=== PATIENT | female | born 1950 | race Two or more races ===

== ENCOUNTER 2024-12-13 10:22 | Inpatient (IN) | payer MEDICARE, OTHER ==
[~2024-12-13] VITALS: Ht 177.8 cm; Wt 106.1 kg
--- NOTE | 2024-12-13 10:38 | ED.PDOC ---
History of Present Illness HPI Comments This is a 74-year-old female with past medical history of type 2 diabetes mellitus presented to the ED via EMS with a chief complaint of nausea, vomiting and diarrhea for 2 weeks prior to this visit. States that she can not keep anything down the throat, diarrhea 4 to 5 times a day, watery in nature with foul-smelling. She was hospitalized for these symptoms 1 week ago and was diagnosed with norovirus diarrhea and prescribed amoxicillin. But her symptoms did not resolved was prompted this visit. Also mentioned 1 month ago she was diagnosed with bladder infection and prescribed broad-spectrum antibiotic but she did not remember the name. She denies fever, abdominal pain, dysuria, he maturia, positive sick contact or any recent traveling. Time Seen by MD: :25 Allergies: Coded Allergies: NO KNOWN ALLERGIES (Unverified , 12/13/24) Information Source: Patient, Emergency Med Personnel Mode of Arrival: EMS Severity: Moderate Timing: Days Duration: Since onset Prehospital treatment: None Past Medical History PAST MEDICAL HISTORY: DM Surgical History: Hysterectomy Surgical History (Other): Laminectomy [employer] History: Denies all [employer] Hx Family History Family History: Reviewed,noncontributory to illness Social History Smoker: Non-Smoker Alcohol: Denies ETOH Use Drugs: Denies Drug Use Lives In: Home Constitutional: reports: chills, weakness; denies: diaphoresis, fatigue, fever, malaise, sweats, others EENTM: denies: blurred vision, double vision, ear bleeding, ear discharge, ear drainage, ear pain, ear ringing, eye pain, eye redness, hearing loss, mouth pain, mouth swelling, nasal discharge, nose bleeding, nose congestion, nose pain, photophobia, tearing, throat pain, throat swelling, voice changes, others Respiratory: denies: cough, hemoptysis, orthopnea, SOB at rest, shortness of breath, SOB with excertion, stridor, wheezing, others Cardiovascular: denies: chest pain, dizzy spells, diaphoresis, Dyspnea on exertion, edema, irregular heart beat, left arm pain, lightheadedness, palpitations, PND, syncope, others Gastrointestinal: reports: diarrhea, nausea, vomiting; denies: abdomen d istended, abdominal pain, blood streaked bowels, constipated, dysphagia, difficulty swallowing, hematemesis, melena, poor appetite, poor fluid intake, rectal bleeding, rectal pain, others Genitourinary: denies: abnormal vagina bleeding, burning, dyspareunia, dysuria, flank pain, frequency, hematuria, incontinence, pain, , vagina discharge, urgency, others Neurological: denies: dizziness, fainting, headache, left sided numbness, left sided weakness, numbness, paresthesia, pre-existing deficit, right sided numbness, right sided weakness, seizure, speech problems, tingling, tremors, w eakness, others Musculoskeletal: denies: back pain, gout, joint pain, joint swelling, muscle pain, muscle stiffness, neck pain, others Integumetry: denies: bruises, change in color, change in hair/nails, dryness, laceration, lesions, lumps, rash, wounds, others Allergic/Immunocompromised: denies: Difficulty Healing, Frequent Infections, Hives, Itching, others Hematologic/Lymphatic: denies: anemia, blood clots, easy bleeding, easy bruising, swollen glands, others Endocrine: denies: excessive hunger, excessive sweating, excessive thirst, excessive urination, flushing, intolerance to cold, intolerance to heat, unexplained weight gain, unexplained weight loss, others Psychiatric: denies: anxiety, bipolar disorder, depression, hopeless, panic disorder, schizophrenia, sleepless, suicidal, others Physical Exam General Appearance: Mild Distress HEENT: Normal ENT Inspection, Pharynx Normal, TMs Normal, Other (Dry mucous membrane) Neck: Full Range of Motion, Non-Tender, Normal, Normal Inspection Respiratory: Chest Non-Tender, Lungs Clear, No Accessory Muscle Use, No Respiratory Distress, Normal Breath Sounds Cardiovascular: No Edema, No JVD, No Murmur, No Gallop, Normal Peripheral Pulses, Regular Rate/Rhythm Breast Exam: Deferred Gastrointestinal: No Organomegaly, Non Tender, No Pulsatile Mass, Normal Bowel Sounds Genitalia: Deferred Pelvic: Deferred Rectal: Deferred Extremities: No calf tenderness, Normal capillary refill, Normal inspection, No pedal edema Neurologic: NOT DONE Cerebellar Function: NOT DONE Reflexes: NOT DONE Skin: NOT DONE Peripheral Pulses: 2+ carotid (R), 2+ carotid (L), 2+ femoral (R), 2+ femoral (L), 2+ dorsalis pedis (R), 2+ dorsalis pedis (L), 2+ Radial (R), 2+ Radial (L), 2+ Brachial (R), 2+ Brachial (L) Lymphatic: NOT DONE Was a procedure done? Was a procedure done?: No Differential Dx Considerations may include: Gastroenteritis, C diff infection, dehydration, electrolyte imbalance, UTI X-Ray, Labs, Meds, VS Vital Signs Date Time Temp Pulse Resp B/P (MAP) Pulse Ox O2 Delivery O2 Flow Rate FiO2 12/13/24 11:10 84 18 95 Room Air* 0 21 12/13/24 10:36 86 12/13/24 10:34 97.9 84 18 133/82 98 97.9 12/13/24 10:34 97.9 84 18 133/82 (99) 98 97.9 Lab Test 12/13/24 11:19 12/13/24 11:05 Range/Units Urine Color Light-orange Yellow Urine Clarity Ex.turbid Clear Urine pH 6.0 5.0-9.0 Urine Specific [place] 1.014 1.001-1.035 Urine Protein 1+ H Negative Urine Ketones 1+ H Negative Urine Blood 2+ H Negative /uL Urine Nitrite Negative Negative Urine Bilirubin Negative Negative Urine Urobilinogen Normal Negative mg/dL Urine Leukocyte Esterase 3+ Negative /uL Urine RBC 58 0 - 4 /hpf Urine WBC Clumps Present None Seen /hpf Urine Microscopic WBC 1231 H 0-5 /HPF Urine Squamous Epithelial Cells Few <5 /hpf Urine Bacteria None seen None Seen /hpf Urine Mucus Few None Seen Urine Glucose Normal Normal mg/dL White Blood Count 10.1 4.4-10.8 10^3/uL Red Blood Count 4.63 4.0-5.20 10^6/uL Hemoglobin 14.1 12.2-16.2 g/dL Hematocrit 41.1 36.0-46.0 % Mean Corpuscular Volume 88.8 80.0-100.0 fL Mean Corpuscular Hemoglobin 30.6 28.0-32.0 pg Mean Corpuscular Hemoglobin Concent 34.4 32.0-36.0 g/dL Red Cell Distribution Width 14.1 11.8-14.3 % Platelet Count 311 140-450 10^3/uL Mean Platelet Volume 7.8 6.9-10.8 fL Neutrophils (%) (Auto) 65.5 37.0-80.0 % Lymphocytes (%) (Auto) 25.2 10.0-50.0 % Monocytes (%) (Auto) 7.3 0.0-12.0 % Eosinophils (%) (Auto) 0.9 0.0-7.0 % Basophils (%) (Auto) 1.1 0.0-2.0 % Neutrophils # (Auto) 6.6 1.6-8.6 10 ^3/uL Lymphocytes # (Auto) 2.6 0.4-5.4 10 ^3/uL Monocytes # (Auto) 0.7 0-1.3 10 ^3/uL Eosinophils # (Auto) 0.1 0-0.8 10 ^3/uL Basophils # (Auto) 0.1 0-0.2 10 ^3/uL Nucleated Red Blood Cells 0.1 % Sodium Level 140 136-145 mmol/L Potassium Level 2.9 L 3.5-5.1 mmol/L Chloride Level 100 98-107 mmol/L Carbon Dioxide Level 27 20-31 mmol/L Anion Gap 13 5-15 Blood Urea Nitrogen 6 L 9-23 mg/dL Creatinine 0.73 0.550-1.02 mg/dL Glomerular Filtration Rate Calc 86 >90 mL/min BUN/Creatinine Ratio 8.2 L 10.0-20.0 Serum Glucose 143 H 74-106 mg/dL Calcium Level 9.7 8.7-10.4 mg/dL Magnesium Level 1.6 1.6-2.6 mg/dL Current Medications Medications (Trade) Dose Ordered Sig/Jimmy Route Start Time Stop Time Status Last Admin Sodium Chloride 500 ml @ 500 mls/hr Q1H ONCE IV 12/13/24 10:45 12/13/24 12:22 DC 12/13/24 12:48 Ondansetron HCl (Zofran) 4 mg ONCE ONCE IV 12/13/24 10:45 12/13/24 12:22 DC 12/13/24 12:49 Potassium Chloride 100 ml @ 50 mls/hr Q2H IV 12/13/24 11:30 12/13/24 17:29 12/13/24 12:49 X-Ray, Labs, Meds, VS Comment CBC is unremarkable BMP demonstrated severe hypokalemia, elevated blood glucose Time of 1ST Reevaluation: 13:13 Reevaluation 1ST: Improved Patient Education/Counseling: Diagnosis, Treatment Family Education/Counseling: No Family Present Comments This is a 74-year-old female presented to the ED via EMS with a complaint of nausea, vomiting and diarrhea for 2 weeks and not able to keep anything down the throat. CBC was unremarkable and BNP demonstrated severe hypokalemia and elevated blood glucose U/A was consistent with UTI Pending stool bacterial culture, C diff and stool WBC IV normal saline 500 mL bolus, IV ondansetron 4 mg IV once, IV potassium 60 mEq once, IV ceftriaxone 1 g once The patient needs inpatient admission for further evaluation and management. SEPSIS Sepsis Screen Physician Orders Stool Wbc (12/13/24 10:36) Stool Bacterial Culture (12/13/24 10:36) Clostridium Difficile Toxin (12/13/24 10:36) Potassium Chl 20meq/100ml (12/13/24 11:30) Electrocardigram (12/13/24 12:05) Urine Bacterial Culture (12/13/24 13:05) Ceftriaxone 1gm/50ml D5w (Rocephin) (12/13/24 13:15) Vital Signs Date Time Temp Pulse Resp B/P (MAP) Pulse Ox O2 Delivery O2 Flow Rate FiO2 12/13/24 11:10 84 18 95 Room Air* 0 21 12/13/24 10:36 86 12/13/24 10:34 97.9 84 18 133/82 98 97.9 12/13/24 10:34 97.9 84 18 133/82 (99) 98 97.9 Laboratory Tests Test 12/13/24 11:05 White Blood Count 10.1 10^3/uL (4.4-10.8) Medications Medications Dose Ordered Sig/Jimmy Route Start Time Stop Time Status Last Admin Dose Admin Ondansetron HCl 4 mg ONCE ONCE IV 12/13/24 10:45 12/13/24 12:22 DC 12/13/24 12:49 Potassium Chloride 100 ml @ 50 mls/hr Q2H IV 12/13/24 11:30 12/13/24 17:29 12/13/24 12:49 Sodium Chloride 500 ml @ 500 mls/hr Q1H ONCE IV 12/13/24 10:45 12/13/24 12:22 DC 12/13/24 12:48 Departure 1 Departure Time of Disposition: :15 Impression: Primary Impression: Hypokalemia Additional Impression: UTI (urinary tract infection) Disposition: 09 ADMITTED INPATIENT Admit to: Tele Condition: Guarded Critical Care Note Critical Care Time?: No Stability Stability form required: OLY Antonio RESIDENT Dec 13, 2024 10:38
[2024-12-13 11:10] VITALS: PULSE 84; RESP 18; O2SAT 95
[2024-12-13 11:15] LABS: Hematocrit 41.1 % (36.0-46.0); Hemoglobin 14.1 g/dL (12.2-16.2); Mean Corpuscular Hemoglobin 30.6 pg (28.0-32.0); Mean Corpuscular Volume 88.8 fL (80.0-100.0); Nucleated Red Blood Cells % 0.1 %
[2024-12-13 11:23] LABS: Chloride 100 mmol/L (98-107); Sodium 140 mmol/L (136-145)
[2024-12-13 11:24] LABS: Anion Gap 13 (5-15); Calcium 9.7 mg/dL (8.7-10.4); Carbon Dioxide 27 mmol/L (20-31); Potassium 2.9 mmol/L (3.5-5.1)
[2024-12-13 11:29] LABS: BUN/Creatinine Ratio 8.2 (10.0-20.0); Blood Urea Nitrogen 6 mg/dL (9-23); Glucose 143 mg/dL (74-106)
[2024-12-13 12:16] LABS: Urine Protein, UAD 1+ (Negative); Urine WBC Clumps PRESENT /hpf (None Seen)
[2024-12-13] MEDS: SODIUM CHLORIDE 0.9% 500 ML IV ONE (12:48)
[2024-12-13] MEDS: ONDANSETRON HCL 4 MG/2 ML VIAL IV ONE (12:49)
[2024-12-13] MEDS: POTASSIUM CHL 20MEQ/100ML 100 ML IV SCH (12:49)
[2024-12-13] MEDS ORDERED: DOCUSATE SOD 100 MG CAP PO PRN (15:45)
[2024-12-13] MEDS ORDERED: DEXTROSE (50%) 50ML SYRG IV PRN (15:45)
[2024-12-13] MEDS ORDERED: NITROGLYCERIN 0.4 MG SL TAB SL PRN (15:45)
[2024-12-13] MEDS: IOHEXOL 300 MG/ML 100ML BOTTLE IJ ONE (15:47)
--- NOTE | 2024-12-13 16:04 | DVHHP2 ---
History of Present Illness Reason for Visit: nvd History of Present Illness 74-year-old female with a past medical history of type 2 diabetes mellitus, hysterectomy, and lumbar laminectomy presents with persistent nausea, vomiting, and diarrhea for more than two weeks. She was recently admitted to a hospital in [place] about one week ago, where stool studies reportedly showed norovirus. She was discharged on amoxicillin and completed four days of t reatment but continues to have diarrhea with foul odor, no blood, and no abdominal pain. She reports decreased appetite and describes that whenever she tries to eat, she experiences immediate diarrhea, a sensation of something stuck in her throat, and vomiting. She denies chest pain or shortness of breath. In the ED, she was hemodynamically stable. CBC was unremarkable, BMP notable for potassium 2.9 and glucose 143. UA showed presence of bacteria. Given ongoing symptoms, hypokalemia, and poor oral intake, she will be admitted for dehydration management, intractable nausea/vomiting/diarrhea, and further evaluation. Past Medical History See HPI above Past Surgical History See HPI above Family History Reviewed, non-contributory to the management of this case. Past Social History The patient lives at home, denies smoking, alcohol or illicit drugs abuse. Review of Systems Constitutional: No: Fever, Chills, Sweats, Weakness, Malaise, Other Eyes: No: Pain, Vision change, Conjunctivae inflammation, Eyelid inflammation, Other, Redness ENT: No: Ear pain, Ear discharge, Nose pain, Nose discharge, Nose congestion, Mouth pain, Mouth swelling, Throat pain, Throat swelling, Other Respiratory: No: Cough, Dry, Shortness of breath, SOB with excertion, Wheezing, Hemoptysis, Pleuritic Pain, Sputum, Wheezing, Other Cardiovascular: No: Chest Pain, Palpitations, Orthopnea, Paroxysmal Noc. Dyspnea, Edema, Lt Headedness, Other Gastrointestinal: Nausea, Vomiting, Abdominal Pain, Diarrhea; No: Constipation, Melena, Hematochezia, Other Genitourinary: No Dysuria, No Frequency, No Incontinence, No Hematuria, No Retention, No Other Musculoskeletal: No: other, neck pain, shoulder pain, arm pain, back pain, hand pain, leg pain, foot pain Skin: No: Rash, Lesions, Jaundice, Bruising, Other Neurological: No: Weakness, Numbness, Incoordination, Change in speech, Confusion, Seizures, Other Allergies: Coded Allergies: NO KNOWN ALLERGIES (Unverified , 12/13/24) Medications Current Medications Medications Dose Ordered Sig/Jimmy Route Start Time Stop Time Status Last Admin Dose Admin Potassium Chloride 100 ml @ 50 mls/hr Q2H IV 12/13/24 11:30 12/13/24 17:29 12/13/24 12:49 50 MLS/HR Exam Vital Signs Vital Signs Date Time Temp Pulse Resp B/P (MAP) Pulse Ox O2 Delivery O2 Flow Rate FiO2 12/13/24 15:00 77 18 131/66 (87) 95 12/13/24 11:10 Room Air* 0 21 12/13/24 10:34 97.9 97.9 General Appearance: Alert, Oriented X3, Cooperative, No acute distress HEENT: Atraumatic, PERRLA, EOMI, Mucous membr. moist/pink Respiratory: Clear to auscultation, Normal air movement Cardiovascular: Regular rate, Normal S1, Normal S2, No murmurs Abdominal: Normal bowel sounds, Soft, No tenderness, No hepatospenomegaly, No masses Extremities: No clubbing, No cyanosis, No edema, Normal pulses, No tenderness/swelling Skin: No rashes, No breakdown, No significant lesion Neuro: Normal gait, Normal speech, Strength at 5/5 X4 ext, Normal tone, Sensation intact, Cranial nerves 3-12 NL Psych/Mental Status: Mental status NL, Mood NL Labs/Xrays I reviewed labs, imaging CT scan abdomen pelvis, EKG and all diagnostic studies on this patient from ED records and the medical chart Labs Test 12/13/24 11:19 12/13/24 11:05 Range/Units Urine Color Light-orange Yellow Urine Clarity Ex.turbid Clear Urine pH 6.0 5.0-9.0 Urine Specific [place] 1.014 1.001-1.035 Urine Protein 1+ H Negative Urine Ketones 1+ H Negative Urine Blood 2+ H Negative /uL Urine Nitrite Negative Negative Urine Bilirubin Negative Negative Urine Urobilinogen Normal Negative mg/dL Urine Leukocyte Esterase 3+ Negative /uL Urine RBC 58 0 - 4 /hpf Urine WBC Clumps Present None Seen /hpf Urine Microscopic WBC 1231 H 0-5 /HPF Urine Squamous Epithelial Cells Few <5 /hpf Urine Bacteria None seen None Seen /hpf Urine Mucus Few None Seen Urine Glucose Normal Normal mg/dL White Blood Count 10.1 4.4-10.8 10^3/uL Red Blood Count 4.63 4.0-5.20 10^6/uL Hemoglobin 14.1 12.2-16.2 g/dL Hematocrit 41.1 36.0-46.0 % Mean Corpuscular Volume 88.8 80.0-100.0 fL Mean Corpuscular Hemoglobin 30.6 28.0-32.0 pg Mean Corpuscular Hemoglobin Concent 34.4 32.0-36.0 g/dL Red Cell Distribution Width 14.1 11.8-14.3 % Platelet Count 311 140-450 10^3/uL Mean Platelet Volume 7.8 6.9-10.8 fL Neutrophils (%) (Auto) 65.5 37.0-80.0 % Lymphocytes (%) (Auto) 25.2 10.0-50.0 % Monocytes (%) (Auto) 7.3 0.0-12.0 % Eosinophils (%) (Auto) 0.9 0.0-7.0 % Basophils (%) (Auto) 1.1 0.0-2.0 % Neutrophils # (Auto) 6.6 1.6-8.6 10 ^3/uL Lymphocytes # (Auto) 2.6 0.4-5.4 10 ^3/uL Monocytes # (Auto) 0.7 0-1.3 10 ^3/uL Eosinophils # (Auto) 0.1 0-0.8 10 ^3/uL Basophils # (Auto) 0.1 0-0.2 10 ^3/uL Nucleated Red Blood Cells 0.1 % Sodium Level 140 136-145 mmol/L Potassium Level 2.9 L 3.5-5.1 mmol/L Chloride Level 100 98-107 mmol/L Carbon Dioxide Level 27 20-31 mmol/L Anion Gap 13 5-15 Blood Urea Nitrogen 6 L 9-23 mg/dL Creatinine 0.73 0.550-1.02 mg/dL Glomerular Filtration Rate Calc 86 >90 mL/min BUN/Creatinine Ratio 8.2 L 10.0-20.0 Serum Glucose 143 H 74-106 mg/dL Calcium Level 9.7 8.7-10.4 mg/dL Magnesium Level 1.6 1.6-2.6 mg/dL SEPSIS Sepsis Screen Date sepsis recognized/suspect: Dec 13, 2024 Time Sepsis recognized/suspect: 1000 Recent Procedure: No On Antibiotic Therapy: No Respiratory Rate >20: No Heart Rate >90: No Temp<36 C (96.8 F) or >38.3 C: No SBP <90 or MAP <65 mmHG: No New Acute Mental Status Change: No Is the patient on CPAP, BIPAP,: No Physician Orders Stool Wbc (12/13/24 10:36) Stool Bacterial Culture (12/13/24 10:36) Clostridium Difficile Toxin (12/13/24 10:36) Potassium Chl 20meq/100ml (12/13/24 11:30) Electrocardigram (12/13/24 12:05) Urine Bacterial Culture (12/13/24 13:05) Admit (12/13/24:) Allergies (12/13/24:) Code Status (12/13/24:) 0.9% Ns 1000 Ml (12/13/24 15:45) Ondansetron Hcl (Zofran) (12/13/24 15:45) Docusate Sodium Capsule (Colace Capsule) (12/13/24 15:45) Fall Risk Precautions In Place QSHIFT (12/13/24:32) Complete Blood Count (12/14/24 04:00) Comprehensive Metabolic Panel (12/14/24 04:00) Condition: Stable (12/13/24:32) Clear Liq Diet (12/13/24 Dinner) BRP (12/13/24:32) Morphine Sulfate Injection (12/13/24 15:45) Sequential Compression Device (12/13/24 ) Lovenox 40mg (12/13/24 15:45) Glucose Blood (Accu-Chek Comfort Curve T (12/13/24 17:00) Bedtime Insulin Scale (12/13/24 22:00) Moderate Insulin Ss (12/13/24 17:00) Dextrose 50% Syringe (12/13/24 15:45) Nitroglycerin Sublingual (Ntrostat Subli (12/13/24 15:45) Stat Ekg For Chest Pain (12/13/24 15:32) Notify Md Of Changes From Base (12/13/24 15:32) Coiled Tubing Operator For 24 Hours (12/13/24 15:32) Emergency Dysrhythmia Protocol (12/13/24 15:32) Rhythm Strips Once Every Shift (12/13/24 15:32) Oxygen By Nasal Cannula (12/13/24 15:32) Magnesium (12/13/24 15:32) Phosphorus (12/13/24 15:32) Ct Ab Pel With Iv Con Only (12/13/24 15:32) Vital Signs Date Time Temp Pulse Resp B/P (MAP) Pulse Ox O2 Delivery O2 Flow Rate FiO2 12/13/24 15:00 77 18 131/66 (87) 95 12/13/24 14:01 77 14 126/63 (84) 95 12/13/24 12:28 80 15 133/70 (91) 96 12/13/24 11:10 84 18 95 Room Air* 0 21 12/13/24 10:36 86 12/13/24 10:34 97.9 84 18 133/82 98 97.9 12/13/24 10:34 97.9 84 18 133/82 (99) 98 97.9 Laboratory Tests Test 12/13/24 11:05 White Blood Count 10.1 10^3/uL (4.4-10.8) Medications Medications Dose Ordered Sig/Jimmy Route Start Time Stop Time Status Last Admin Dose Admin Ceftriaxone Sodium 50 ml @ 100 mls/hr ONCE ONCE IV 12/13/24 13:15 12/13/24 13:44 DC 12/13/24 13:36 100 MLS/HR Ondansetron HCl 4 mg ONCE ONCE IV 12/13/24 10:45 12/13/24 12:22 DC 12/13/24 12:49 4 MG Potassium Chloride 100 ml @ 50 mls/hr Q2H IV 12/13/24 11:30 12/13/24 17:29 12/13/24 12:49 50 MLS/HR Sodium Chloride 500 ml @ 500 mls/hr Q1H ONCE IV 12/13/24 10:45 12/13/24 12:22 DC 12/13/24 12:48 500 MLS/HR Assessment/Plan Assessment/Plan 74-year-old female with Dehydration and intractable nausea, vomiting, and diarrhea with hypokalemia, in the setting of recent norovirus infection. acute Intractable Nausea and Vomiting IV antiemetics (ondansetron PRN). clear liquid diet, advance as tolerated. acute Diarrhea presumed post-viral ct scan abd pelvis ordered fu results Repeat stool studies including C. difficile PCR, GI pathogen panel. Maintain hydration and monitor stool output. Contact precautions until infectious causes ruled out. acute Dehydration IV isotonic fluids, reassess volume status daily. Strict intake/output monitoring. Daily weight. acute Hypokalemia IV repletion to maintain K >4.0 Monitor BMP Type 2 Diabetes Mellitus Monitor blood glucose with ACHS checks. Use sliding scale insulin while inpatient acute Urinary Tract Infection UA with bacteria; send urine culture. Hold antibiotics until culture results unless patient develops urinary symptoms or sepsis. CHRONIC PROBLEM LIST Type 2 Diabetes Mellitus History of Hysterectomy History of Lumbar Laminectomy FEN / PPx ivf scd lovenox protonix clr lquid advance as tolerated Disposition: Admit to medical floor for IV hydration, electrolyte repletion, infectious stool workup, and nutritional support. Discharge once tolerating oral intake, diarrhea improved, electrolytes stable, and safe outpatient follow-up arranged. Plan discussed with: Patient My Orders Orders - AZEB SIDDIQI DNP Procedure Category Date Status Time Admit ADMIT 12/13/24 Verified 15:32 Allergies VIK 12/13/24 Verified 15:32 Code Status CODE 12/13/24 Verified 15:32 0.9% Ns 1000 Ml PHA 12/13/24 Verified 15:45 Ondansetron Hcl PHA 12/13/24 Verified (Zofran) 15:45 Docusate Sodium PHA 12/13/24 Verified Capsule (Colace 15:45 Fall Risk Precautions VIK 12/13/[address] 15:32 Complete Blood Count LAB 12/14/24 Verified 04:00 Comprehensive LAB 12/14/24 Verified Metabolic Panel 04:00 Condition: Stable VIK 12/13/24 Verified 15:32 Clear Liq Diet DIET 12/13/24 Verified Dinner BRP VIK 12/13/24 Verified 15:32 Morphine Sulfate PHA 12/13/24 Verified Injection 15:45 Sequential VIK 12/13/24 Verified Compression Device Lovenox 40mg PHA 12/13/24 Verified 15:45 Glucose Blood PHA 12/13/24 Verified (Accu-Chek Comfort 17:00 Bedtime Insulin Scale PHA 12/13/24 Verified 22:00 Moderate Insulin Ss PHA 12/13/24 Verified 17:00 Dextrose 50% Syringe PHA 12/13/24 Verified 15:45 Nitroglycerin PHA 12/13/24 Verified Sublingual (Ntrostat 15:45 Stat Ekg For Chest [facility] 12/13/24 Verified Pain 15:32 Notify Md Of Changes [facility] 12/13/24 Verified From Base 15:32 Coiled Tubing Operator For [facility] 12/13/24 Verified 24 Hours 15:32 Emergency Dysrhythmia [facility] 12/13/24 Verified Protocol 15:32 Rhythm Strips Once [facility] 12/13/24 Verified Every Shift 15:32 Oxygen By Nasal RT 12/13/24 Verified Cannula 15:32 Magnesium LAB 12/13/24 Verified 15:32 Phosphorus LAB 12/13/24 Verified 15:32 Ct Ab Pel With Iv Con CT 12/13/24 Verified Only 15:32 Date of Service: Dec 13, 2024 Billing Provider: AZEB SIDDIQI DNP Common Visit Codes: [id number] INP/OBS CARE (HIGH) AZEB SIDDIQI DNP Dec 13, 2024 16:04
[2024-12-13] MEDS: ENOXAPARIN SOD 40 MG/0.4 ML SYRINGE SC SCH (16:05)
[2024-12-13] MEDS: SODIUM CHLORIDE 0.9% 1,000 ML IV SCH (16:07)
--- NOTE | 2024-12-13 16:49 | DVH ---
EXAM: CT CT AB PEL WITH IV CON ONLY HISTORY: eval for acute diarrhea and vomiting COMPARISON: None TECHNIQUE: Helical CT images of the abdomen and pelvis were performed with 85 mL Omnipaque 300 IV con trast. Sagittal and coronal reformatted images were obtained. This CT exam was performed using 1 or m ore of the following dose reduction techniques: Automated exposure control, adjustment of the mA and/ or kv according to patient size, or the use of iterative reconstruction techniques. Radiation Dose Information: CT Dose: CTDI volume is 26.98 mGy. Dose-length product is 1529.55 mGy*cm FINDINGS: CT abdomen: There is a left chest loop recorder. The lung bases are clear. The heart is mildly enlarg ed. The liver is diffusely fatty density The spleen, gallbladder, pancreas, kidneys, and adrenal glan ds are unremarkable. No abdominal aortic aneurysm or dissection. CT pelvis: No abnormal bowel dilatation, free air, or free fluid. There are a few sigmoid colon diver ticula without evidence of acute diverticulitis. The appendix is not definitely visualized, and there is no specific evidence of acute appendicitis. The uterus is surgically absent. The urinary bladde r is unremarkable. There is moderate lumbar degenerative disc disease and facet arthropathy. IMPRESSION: 1. Cardiomegaly and left chest loop recorder. 2. Hepatic steatosis. 3. Postoperative changes of hysterectomy and possibly also appendectomy. 4. Few sigmoid colon diverticula without evidence of acute diverticulitis. 5. No evidence of bowel obstruction or other acute process in the abdomen or pelvis.
[2024-12-13] MEDS: InsuLIN REG 1unit/0.01ml Soln (100units/ml) SC SCH ×2 (17:00→22:00)
[2024-12-13 17:08] LABS: Magnesium 1.6 mg/dL (1.6-2.6)
[2024-12-13] MEDS: ACCU-CHEK COMFORT CURVE STRIP VI SCH (17:18)
[2024-12-13 17:35] VITALS: PULSE 80; RESP 18; O2SAT 0
[2024-12-13 17:55] VITALS: BP 129/64; PULSE 80; RESP 17; TEMP 98.1; O2SAT 97
[2024-12-13] MEDS: ONDANSETRON HCL 4 MG/2 ML VIAL IV PRN (18:09)
[2024-12-13 18:26] VITALS: BP 130/66; PULSE 80; RESP 18; TEMP 98; O2SAT 95
[2024-12-13] MEDS ORDERED: BENA10TA90 PO (20:29)
[2024-12-13] MEDS ORDERED: SERT-206 PO (20:29)
[2024-12-13] MEDS ORDERED: AUG875T PO (20:29)
[2024-12-13] MEDS ORDERED: ZOFR4T PO (20:29)
[2024-12-13] MEDS ORDERED: ROSU10TA16 PO (20:29)
[2024-12-13] MEDS ORDERED: ESTR1TAB6 PO (20:29)
[2024-12-13] MEDS ORDERED: AML5T PO (20:29)
[2024-12-13] MEDS ORDERED: METF-1145 PO (20:29)
[2024-12-13 20:58] VITALS: BP_SYST 131; BP_SYST 95; BP_DIAS 62; BP_DIAS 66; PULSE 77; RESP 18; TEMP 98.4; O2SAT 96
[2024-12-14] VITALS (8 sets, daily range): BP systolic 105–141; BP diastolic 50–78; PULSE 71–77; RESP 16–18; TEMP 97.7–99.8; O2SAT 93–98
[2024-12-14] MEDS: POTASSIUM CHL 20MEQ/100ML 100 ML IV ONE (00:05)
[2024-12-14] MEDS: MORPHINE SULFATE INJ 2 MG/ml SYRG IV PRN (00:11)
[2024-12-14 06:39] LABS: Hematocrit 40.9 % (36.0-46.0); Hemoglobin 13.7 g/dL (12.2-16.2); Mean Corpuscular Hemoglobin 29.9 pg (28.0-32.0); Mean Corpuscular Volume 89.4 fL (80.0-100.0); Nucleated Red Blood Cells % 0.0 %
[2024-12-14 06:58] LABS: Alanine Aminotransferase 23 U/L (7-40); Albumin 3.5 g/dL (3.2-4.8); Alkaline Phosphatase 65 U/L (46-116); Anion Gap 13 (5-15); Calcium 9.1 mg/dL (8.7-10.4); Carbon Dioxide 22 mmol/L (20-31); Glucose 104 mg/dL (74-106); Sodium 143 mmol/L (136-145)
[2024-12-14 06:59] LABS: Bilirubin, Total 0.5 mg/dL (0.2-1.0)
[2024-12-14 07:05] LABS: BUN/Creatinine Ratio 6.8 (10.0-20.0); Blood Urea Nitrogen < 5 mg/dL (9-23); Chloride 108 mmol/L (98-107); Potassium 3.2 mmol/L (3.5-5.1); Total Protein 5.4 g/dL (5.7-8.2)
--- NOTE | 2024-12-14 10:06 | DVHPN2 ---
Changes from previous H/P or p: No Changes Eyes: No Pain, No Vision change, No Conjunctivae inflammation, No Eyelid inflammation, No Other, No Redness ENT: No Ear pain, No Ear discharge, No Nose pain, No Nose discharge, No Nose congestion, No Mouth pain, No Mouth swelling, No Throat pain, No Throat swelling, No Other Cardiovascular: No Chest Pain, No Palpitations, No Orthopnea, No Paroxysmal Noc. Dyspnea, No Edema, No Lt Headedness, No Other Respiratory: No Cough, No Dry, No Shortness of breath, No SOB with excertion, No Wheezing, No Hemoptysis, No Pleuritic Pain, No Sputum, No Other Gastrointestinal: Nausea, Vomiting, Abdominal Pain, Diarrhea; No Constipation, No Melena, No Hematochezia, No Other Genitourinary: No Dysuria, No Frequency, No Incontinence, No Hematuria, No Retention, No Other Musculoskeletal: No other, No neck pain, No shoulder pain, No arm pain, No back pain, No hand pain, No leg pain, No foot pain Skin: No Rash, No Lesions, No Jaundice, No Bruising, No Other Objective Vitals Vital Signs Date Time Temp Pulse Resp B/P (MAP) Pulse Ox O2 Delivery O2 Flow Rate FiO2 12/14/24 09:13 98.6 77 18 105/50 (68) 96 98.6 12/14/24 07:30 Room Air* 0 21 Intake/Output Intake and Output 12/14/24 07:00 Intake Total 1375 ml Balance 1375 ml Intake Oral 600 ml IV Total 775 ml Medications Current Medications Medications Dose Ordered Sig/Jimmy Route Start Time Stop Time Status Last Admin Dose Admin Sodium Chloride 1,000 ml @ 100 mls/hr Q10H IV 12/13/24 15:45 12/14/24 00:50 100 MLS/HR Ondansetron HCl 4 mg Q4HP PRN IV 12/13/24 15:45 12/14/24 09:04 4 MG Docusate Sodium 100 mg BIDPRN PRN PO 12/13/24 15:45 Morphine Sulfate 2 mg Q4HPRN PRN IV 12/13/24 15:45 12/14/24 00:11 2 MG Enoxaparin Sodium 40 mg DAILY SC 12/13/24 15:45 12/13/24 16:05 40 MG Diagnostic Test (Pha) 1 strip ACHS 12/13/24 17:00 12/14/24 06:52 1 STRIP Insulin Human Regular HS SC 12/13/24 22:00 Insulin Human Regular AC SC 12/13/24 17:00 Dextrose 50 ml UD PRN IV 12/13/24 15:45 Nitroglycerin 0.4 mg Q5MINP PRN SL 12/13/24 15:45 Ceftriaxone Sodium 50 ml @ 100 mls/hr DAILY@09 IV 12/15/24 09:00 UNV Metronidazole 100 ml @ 100 mls/hr Q8HR IV 12/14/24 14:00 UNV Laboratory Results Laboratory Tests 12/14/24 05:39 Chemistry Test 12/13/24 11:05 12/13/24 16:30 12/14/24 05:39 Calcium Level 9.7 mg/dL (8.7-10.4) 9.1 mg/dL (8.7-10.4) Magnesium Level 1.6 mg/dL (1.6-2.6) 1.6 mg/dL (1.6-2.6) Phosphorus Level 3.6 mg/dL (2.4-5.1) Albumin 3.5 g/dL (3.2-4.8) Total Protein 5.4 g/dL (5.7-8.2) L LFT Test 12/14/24 05:39 Alanine Aminotransferase (ALT) 23 U/L (7-40) Alkaline Phosphatase 65 U/L (46-116) Aspartate Amino Transferase (AST) 34 U/L (13-40) Total Bilirubin 0.5 mg/dL (0.2-1.0) Urinalysis Test 12/13/24 11:19 Urine Color Light-orange (Yellow) Urine Clarity Ex.turbid (Clear) Urine pH 6.0 (5.0-9.0) Urine Specific [place] 1.014 (1.001-1.035) Urine Protein 1+ (Negative) H Urine Ketones 1+ (Negative) H Urine Blood 2+ /uL (Negative) H Urine Nitrite Negative (Negative) Urine Bilirubin Negative (Negative) Urine Urobilinogen Normal mg/dL (Negative) Urine Leukocyte Esterase 3+ /uL (Negative) Urine RBC 58 /hpf (0 - 4) Urine WBC Clumps Present /hpf (None Seen) Urine Microscopic WBC 1231 /HPF (0-5) H Urine Squamous Epithelial Cells Few /hpf (<5) Urine Bacteria None seen /hpf (None Seen) Urine Mucus Few (None Seen) Urine Glucose Normal mg/dL (Normal) Labs and/or images reviewed: Labs reviewed by me, Image(s) reviewed by me Assessment/Plan Assessment/Plan Sepsis secondary to urinary tract infection: Blood cultures urine cultures Rocephin Acute abdominal pain with the nausea vomiting and diarrhea, Rocephin and Flagyl IV CT abdomen pelvis without contrast negative, GI consult by Dr. Izaiah Magana Recent history of norovirus infection treated with amoxicillin at [facility] Diverticulosis without diverticulitis Diabetes type 2 Acute dehydration: IV fluids History of lumbar spine surgery Time spent 70 minutes Advanced care planning time 20 minutes Patient is full code Patient Lives in [place] and visiting her daughter here . Plan discussed with: Patient My Orders Orders - BETO CRISTOBAL MD Procedure Category Date Status Time Ceftriaxone 1gm/50ml PHA 12/15/24 Logged D5w (Rocephin) 09:00 Ceftriaxone 1gm/50ml PHA 12/14/24 Logged D5w (Rocephin) 10:15 Metronidazole PHA 12/14/24 Logged 500mg/100ml (Flagyl 14:00 Date of Service: Dec 14, 2024 Billing Provider: BETO CRISTOBAL MD Common Visit Codes: [id number] CARE 30-74 MIN BETO CRISTOBAL MD Dec 14, 2024 10:06
[2024-12-14] MEDS: diphenhdrAMINE HCL 50 MG/1 ML VL IV PRN (12:02)
[2024-12-15] VITALS (8 sets, daily range): BP systolic 137–153; BP diastolic 67–75; PULSE 66–72; RESP 17–20; TEMP 97.5–99.3; O2SAT 93–97
[2024-12-15 07:22] LABS: Hematocrit 34.7 % (36.0-46.0); Hemoglobin 11.8 g/dL (12.2-16.2); Mean Corpuscular Hemoglobin 30.3 pg (28.0-32.0); Mean Corpuscular Volume 89.0 fL (80.0-100.0); Nucleated Red Blood Cells % 0.1 %
[2024-12-15 07:38] LABS: Alanine Aminotransferase 17 U/L (7-40); Alkaline Phosphatase 57 U/L (46-116); Anion Gap 13 (5-15); Calcium 8.8 mg/dL (8.7-10.4); Carbon Dioxide 21 mmol/L (20-31); Glucose 101 mg/dL (74-106)
[2024-12-15 07:39] LABS: Bilirubin, Total 0.4 mg/dL (0.2-1.0)
[2024-12-15 07:47] LABS: Albumin 3.1 g/dL (3.2-4.8); BUN/Creatinine Ratio 8.2 (10.0-20.0); Blood Urea Nitrogen < 5 mg/dL (9-23); Chloride 112 mmol/L (98-107); Potassium 2.8 mmol/L (3.5-5.1); Sodium 146 mmol/L (136-145); Total Protein 4.7 g/dL (5.7-8.2)
--- NOTE | 2024-12-15 09:52 | DVHPN2 ---
Reviewed: Care Plan, H&P, Labs, Medications, Previous Orders, Radiology Changes from previous H/P or p: No Changes Eyes: No Pain, No Vision change, No Conjunctivae inflammation, No Eyelid inflammation, No Other, No Redness ENT: No Ear pain, No Ear discharge, No Nose pain, No Nose discharge, No Nose congestion, No Mouth pain, No Mouth swelling, No Throat pain, No Throat swelling, No Other Cardiovascular: No Chest Pain, No Palpitations, No Orthopnea, No Paroxysmal Noc. Dyspnea, No Edema, No Lt Headedness, No Other Respiratory: No Cough, No Dry, No Shortness of breath, No SOB with excertion, No Wheezing, No Hemoptysis, No Pleuritic Pain, No Sputum, No Other Gastrointestinal: Nausea, Vomiting, Abdominal Pain, Diarrhea; No Constipation, No Melena, No Hematochezia, No Other Genitourinary: No Dysuria, No Frequency, No Incontinence, No Hematuria, No Retention, No Other Musculoskeletal: No other, No neck pain, No shoulder pain, No arm pain, No back pain, No hand pain, No leg pain, No foot pain Skin: No Rash, No Lesions, No Jaundice, No Bruising, No Other Objective Vitals Vital Signs Date Time Temp Pulse Resp B/P (MAP) Pulse Ox O2 Delivery O2 Flow Rate FiO2 12/15/24 07:30 72 18 94 Room Air* 0 21 12/15/24 05:15 97.8 138/72 (94) 97.8 Intake/Output Intake and Output 12/15/24 07:00 Intake Total 2250 ml Output Total 3 ml Balance 2247 ml Intake Oral 1200 ml IV Total 1050 ml Output Urine Total 3 ml # Voids 2 # Bowel Movements 2 Medications Current Medications Medications Dose Ordered Sig/Jimmy Route Start Time Stop Time Status Last Admin Dose Admin Sodium Chloride 1,000 ml @ 100 mls/hr Q10H IV 12/13/24 15:45 12/15/24 05:51 100 MLS/HR Ondansetron HCl 4 mg Q4HP PRN IV 12/13/24 15:45 12/14/24 09:04 4 MG Docusate Sodium 100 mg BIDPRN PRN PO 12/13/24 15:45 Morphine Sulfate 2 mg Q4HPRN PRN IV 12/13/24 15:45 12/14/24 21:38 2 MG Enoxaparin Sodium 40 mg DAILY SC 12/13/24 15:45 12/13/24 16:05 40 MG Diagnostic Test (Pha) 1 strip ACHS 12/13/24 17:00 12/15/24 05:49 1 STRIP Insulin Human Regular HS SC 12/13/24 22:00 Insulin Human Regular AC SC 12/13/24 17:00 Dextrose 50 ml UD PRN IV 12/13/24 15:45 Nitroglycerin 0.4 mg Q5MINP PRN SL 12/13/24 15:45 Ceftriaxone Sodium 50 ml @ 100 mls/hr DAILY@09 IV 12/15/24 09:00 12/15/24 08:24 100 MLS/HR Metronidazole 100 ml @ 100 mls/hr Q8HR IV 12/14/24 14:00 12/15/24 05:49 100 MLS/HR Diphenhydramine HCl 25 mg Q6HP PRN IV 12/14/24 11:30 12/15/24 06:24 25 MG Laboratory Results Laboratory Tests 12/15/24 05:59 Chemistry Test 12/15/24 05:59 Albumin 3.1 g/dL (3.2-4.8) L Calcium Level 8.8 mg/dL (8.7-10.4) Total Protein 4.7 g/dL (5.7-8.2) L LFT Test 12/15/24 05:59 Alanine Aminotransferase (ALT) 17 U/L (7-40) Alkaline Phosphatase 57 U/L (46-116) Aspartate Amino Transferase (AST) 27 U/L (13-40) Total Bilirubin 0.4 mg/dL (0.2-1.0) Urinalysis Test 12/13/24 11:19 Urine Color Light-orange (Yellow) Urine Clarity Ex.turbid (Clear) Urine pH 6.0 (5.0-9.0) Urine Specific [place] 1.014 (1.001-1.035) Urine Protein 1+ (Negative) H Urine Ketones 1+ (Negative) H Urine Blood 2+ /uL (Negative) H Urine Nitrite Negative (Negative) Urine Bilirubin Negative (Negative) Urine Urobilinogen Normal mg/dL (Negative) Urine Leukocyte Esterase 3+ /uL (Negative) Urine RBC 58 /hpf (0 - 4) Urine WBC Clumps Present /hpf (None Seen) Urine Microscopic WBC 1231 /HPF (0-5) H Urine Squamous Epithelial Cells Few /hpf (<5) Urine Bacteria None seen /hpf (None Seen) Urine Mucus Few (None Seen) Urine Glucose Normal mg/dL (Normal) Microbiology Microbiology Date/Time Source Procedure Growth Status 12/14/24 11:19 Stool Stool Culture - Preliminary Resulted 12/14/24 11:19 Stool Shiga Toxin I & II - Final Resulted 12/14/24 11:19 Stool Clostridium difficile Toxin Assay Pending Resulted 12/13/24 11:19 Voided Urine Urine Culture - Preliminary Resulted Labs and/or images reviewed: Labs reviewed by me, Image(s) reviewed by me Assessment/Plan Assessment/Plan Sepsis secondary to urinary tract infection: Blood cultures pending, urine cultures growing Enterococcus species, continue Rocephin Acute abdominal pain with the nausea vomiting and diarrhea, Rocephin and Flagyl IV CT abdomen pelvis without contrast negative, GI consult by Dr. Izaiah Magana, Shiga negative C diff pending Recent history of norovirus infection treated with amoxicillin at [facility] Diverticulosis without diverticulitis Diabetes type 2 Acute Hypokalemia: Replace potassium Acute dehydration: IV fluids History of lumbar spine surgery Time spent 50 minutes Advanced care planning time 20 minutes Patient is full code Patient Lives in [place] and visiting her daughter here Dread at bedside RN Cathi at bedside . Plan discussed with: Patient My Orders Orders - BETO CRISTOBAL MD Procedure Category Date Status Time Ceftriaxone 1gm/50ml PHA 12/15/24 In Process D5w (Rocephin) 09:00 Metronidazole PHA 12/14/24 In Process 500mg/100ml (Flagyl 14:00 * Gi Dvh Crusher Operator CONS 12/14/24 Transmitted 10:01 Blood Culture ANTONIETA 12/14/24 In Process 10:06 Complete Blood Count LAB 12/16/24 Verified 04:00 Comprehensive LAB 12/16/24 Verified Metabolic Panel 04:00 Complete Blood Count LAB 12/17/24 Verified 04:00 Comprehensive LAB 12/17/24 Verified Metabolic Panel 04:00 * Bottle Caser CONS 12/14/24 Transmitted Consult Mrsa Screen ANTONIETA 12/14/24 In Process 11:39 Diphenhdramine PHA 12/14/24 In Process Injection (Benadryl 11:30 Date of Service: Dec 15, 2024 Billing Provider: BETO CRISTOBAL MD Common Visit Codes: [id number] INP/OBS CARE(HIGH) BETO CRISTOBAL MD Dec 15, 2024 09:52
[2024-12-15] MEDS ORDERED: SOD CHL 0.9%/ KCL 40MEQ 1,000 ML IV ONE (10:00)
[2024-12-15] MEDS: POTASSIUM CHLORIDE 60 MEQ, LIDOCAINE 1% (LOCAL ANESTH.) 6 ML in SODIUM CHL 0.9% 500 ML IV ONE (10:57)
[2024-12-15] MEDS: diphenhdrAMINE HCL 50 MG/1 ML VL IV PRN ×2 (12:18→15:44)
--- NOTE | 2024-12-15 13:58 | DVHINCON2 ---
Date of service: Dec 15, 2024 Referring Physician Brandt Muhammad Reason for Consultation Abdominal pain nausea vomiting History of Present Illness 74-year-old female presents with persistent nausea, vomiting, and diarrhea for more than two weeks. She was recently admitted to a hospital in [place] about one week ago, where stool studies reportedly showed norovirus. She was discharged on amoxicillin and completed four days of treatment but continues to have diarrhea with foul odor, no blood, and no abdominal pain. She reports decreased appetite and describes that whenever she tries to eat, she experiences immediate diarrhea, a sensation of something stuck in her throat, and vomiting. She can not keep anything down. Patient was seen at bedside no acute distress other than mildly anxious. Patient had some hypokalemia had mild UTI. She was admitted for IV fluid hydration and further clinical management Patient stated she had an endoscopy and colonoscopy less than five years ago at [facility] which she believes were negative. Past Medical History Type 2 diabetes mellitus, obesity Past Surgical History , hysterectomy, and lumbar laminectomy Family History: Chronic obstructive pulmonary disease G8 MOTHER FH: CHF (congestive heart failure) G8 FATHER Allergies: Coded Allergies: NO KNOWN ALLERGIES (Unverified , 12/13/24) Home Meds Reported Medications Sertraline Hcl (Sertraline Hcl) 50 Mg Tab, 1 TAB PO DAILY, #30 TAB 5 Refills 12/13/24 Rosuvastatin Calcium (Crestor) 10 Mg Tab, 1 TAB PO DAILY, #30 TAB 5 Refills 12/13/24 Metformin Hydrochloride (Metformin Hcl Er) 500 Mg Tab, 1 TAB PO DAILY, #90 TAB 3 Refills 12/13/24 Estradiol (Estradiol) 1 Mg Tab, 1 MG PO, TAB 12/13/24 Ondansetron Odt 4MG Tab (ZOFRAN PO) 4 Mg Tb, 4 MG PO, TAB ODT TAB-DISSOLVE IN MOUTH, THEN SWALLOW 12/13/24 Amoxicillin & Pot Clavulanate (AUGMENTIN TABLET) 875 Mg Tb, 875 MG PO BID, TAB 12/13/24 Amlodipine Besylate (NORVASC TABLET) 5 Mg Tb, 1 TAB PO DAILY, #30 TAB 5 Refills 12/13/24 Benazepril Hcl (Benazepril Hcl) 10 Mg Tab, 1 TAB PO DAILY, #30 TAB 5 Refills 12/13/24 Current Medications Current Medications Medications (Trade) Dose Ordered Sig/Jimmy Route PRN Reason Start Time Stop Time Status Last Admin Ceftriaxone Sodium 50 ml @ 100 mls/hr DAILY@09 IV 12/15/24 09:00 12/15/24 08:24 Metronidazole 100 ml @ 100 mls/hr Q8HR IV 12/14/24 14:00 12/15/24 13:21 Diphenhydramine HCl (Benadryl Injection) 25 mg Q4HP PRN IV FOR ITCHING 12/15/24 10:00 12/15/24 12:18 Vital Signs Vital Signs Date Time Temp Pulse Resp B/P (MAP) Pulse Ox O2 Delivery O2 Flow Rate FiO2 12/15/24 09:00 97.9 66 18 148/70 (96) 97 97.9 12/15/24 07:30 Room Air* 0 21 Physical Exam General Appearance: Alert, Oriented X3, Cooperative, No acute distress HEENT: Atraumatic, PERRLA, EOMI, Mucous membr. moist/pink Respiratory: Clear to auscultation, Normal air movement Cardiovascular: Regular rate, Normal S1, Normal S2, No murmurs Abdominal: Normal bowel sounds, Soft, No tenderness, No hepatospenomegaly, No masses Extremities: No clubbing, No cyanosis, No edema, Normal pulses, No tenderness/swelling Skin: No rashes, No breakdown, No significant lesion Neuro: Normal gait, Normal speech, Strength at 5/5 X4 ext, Normal tone, Sensation intact, Cranial nerves 3-12 NL Psych/Mental Status: Mental status NL, Mood NL Labs/Diagnostic Data Labs Test 12/15/24 05:59 12/15/24 05:50 12/14/24 11:19 12/13/24 16:30 Range/Units White Blood Count 5.1 # 4.4-10.8 10^3/uL Red Blood Count 3.90 L 4.0-5.20 10^6/uL Hemoglobin 11.8 L 12.2-16.2 g/dL Hematocrit 34.7 #L 36.0-46.0 % Mean Corpuscular Volume 89.0 80.0-100.0 fL Mean Corpuscular Hemoglobin 30.3 28.0-32.0 pg Mean Corpuscular Hemoglobin Concent 34.1 32.0-36.0 g/dL Red Cell Distribution Width 14.3 11.8-14.3 % Platelet Count 233 140-450 10^3/uL Mean Platelet Volume 8.4 6.9-10.8 fL Neutrophils (%) (Auto) 55.5 37.0-80.0 % Lymphocytes (%) (Auto) 28.5 10.0-50.0 % Monocytes (%) (Auto) 9.1 0.0-12.0 % Eosinophils (%) (Auto) 6.1 0.0-7.0 % Basophils (%) (Auto) 0.8 0.0-2.0 % Neutrophils # (Auto) 2.9 1.6-8.6 10 ^3/uL Lymphocytes # (Auto) 1.5 0.4-5.4 10 ^3/uL Monocytes # (Auto) 0.5 0-1.3 10 ^3/uL Eosinophils # (Auto) 0.3 0-0.8 10 ^3/uL Basophils # (Auto) 0 0-0.2 10 ^3/uL Nucleated Red Blood Cells 0.1 % Sodium Level 146 H 136-145 mmol/L Potassium Level 2.8 L 3.5-5.1 mmol/L Chloride Level 112 H 98-107 mmol/L Carbon Dioxide Level 21 20-31 mmol/L Anion Gap 13 5-15 Blood Urea Nitrogen < 5 L 9-23 mg/dL Creatinine 0.61 0.550-1.02 mg/dL Glomerular Filtration Rate Calc 93 >90 mL/min BUN/Creatinine Ratio 8.2 L 10.0-20.0 Serum Glucose 101 74-106 mg/dL Calcium Level 8.8 8.7-10.4 mg/dL Total Bilirubin 0.4 0.2-1.0 mg/dL Aspartate Amino Transferase (AST) 27 13-40 U/L Alanine Aminotransferase (ALT) 17 7-40 U/L Alkaline Phosphatase 57 46-116 U/L Total Protein 4.7 L 5.7-8.2 g/dL Albumin 3.1 L 3.2-4.8 g/dL POC Glucose 102 70-106 mg/dl Stool for White Cells None seen Phosphorus Level 3.6 2.4-5.1 mg/dL Magnesium Level 1.6 1.6-2.6 mg/dL Test 12/13/24 11:19 Range/Units Urine Color Light-orange Yellow Urine Clarity Ex.turbid Clear Urine pH 6.0 5.0-9.0 Urine Specific [place] 1.014 1.001-1.035 Urine Protein 1+ H Negative Urine Ketones 1+ H Negative Urine Blood 2+ H Negative /uL Urine Nitrite Negative Negative Urine Bilirubin Negative Negative Urine Urobilinogen Normal Negative mg/dL Urine Leukocyte Esterase 3+ Negative /uL Urine RBC 58 0 - 4 /hpf Urine WBC Clumps Present None Seen /hpf Urine Microscopic WBC 1231 H 0-5 /HPF Urine Squamous Epithelial Cells Few <5 /hpf Urine Bacteria None seen None Seen /hpf Urine Mucus Few None Seen Urine Glucose Normal Normal mg/dL Microbiology Date/Time Source Procedure Growth Status 12/14/24 13:11 Blood Blood Culture - Preliminary NO GROWTH AFTER 24 HOURS OF INCUBATION. Resulted 12/14/24 11:19 Stool Stool Culture - Preliminary Resulted 12/14/24 11:19 Stool Shiga Toxin I & II - Final Resulted 12/14/24 11:19 Stool Clostridium difficile Toxin Assay Pending Resulted 12/13/24 11:19 Voided Urine Urine Culture - Final Escherichia coli Enterococcus faecalis Complete CT SCAN ABD PELVIS IMPRESSION: 1. Cardiomegaly and left chest loop recorder. 2. Hepatic steatosis. 3. Postoperative changes of hysterectomy and possibly also appendectomy. 4. Few sigmoid colon diverticula without evidence of acute diverticulitis. 5. No evidence of bowel obstruction or other acute process in the abdomen or pelvis. Problems(with codes): (1) Nausea vomiting and diarrhea (2) Viral gastroenteritis (3) UTI (urinary tract infection) (4) Hypokalemia Plan/Recommendation Plan Continue IV fluid hydration, replace potassium IV PPI IV antibiotics Check urine culture Continue supportive care If symptoms persist consider endoscopy I will follow up patient with you Plan discussed with: Patient KERRY TOMAS MD Dec 15, 2024 13:58
--- NOTE | 2024-12-15 18:05 | MEDREC ---
[facility] ASP Intervention Section I [facility] ASP Intervention: Review courses of therapy (PLEASE CONSIDER REVIEWING COURSE OF THERAPY BASED ON CULTURE RESULTS AND SUSCEPTIBILITIES ) LIANE STYLES PHARMACIST Dec 15, 2024 18:05
[2024-12-15] MEDS: MUPIROCIN 2% OINT 15gm or 22gm FOR MRSA NARES EACHNOSTRI SCH (20:57)
[2024-12-16 04:48] VITALS: BP 140/70; PULSE 76; RESP 18; TEMP 97.6; O2SAT 95
[2024-12-16 05:39] LABS: Hematocrit 34.5 % (36.0-46.0); Hemoglobin 11.7 g/dL (12.2-16.2); Mean Corpuscular Hemoglobin 30.1 pg (28.0-32.0); Mean Corpuscular Volume 88.6 fL (80.0-100.0); Nucleated Red Blood Cells % 0.1 %
[2024-12-16 06:03] LABS: Alanine Aminotransferase 14 U/L (7-40); Alkaline Phosphatase 56 U/L (46-116); Anion Gap 12 (5-15); Calcium 8.7 mg/dL (8.7-10.4); Carbon Dioxide 21 mmol/L (20-31); Sodium 145 mmol/L (136-145)
[2024-12-16 06:04] LABS: Bilirubin, Total 0.4 mg/dL (0.2-1.0)
[2024-12-16 06:07] LABS: Albumin 3.0 g/dL (3.2-4.8); Blood Urea Nitrogen < 5 mg/dL (9-23); Chloride 112 mmol/L (98-107); Glucose 107 mg/dL (74-106); Potassium 3.3 mmol/L (3.5-5.1); Total Protein 4.6 g/dL (5.7-8.2)
[2024-12-16 06:18] LABS: BUN/Creatinine Ratio 7.8 (10.0-20.0)
[2024-12-16 08:30] VITALS: BP 146/60; PULSE 68; RESP 14; TEMP 97.3; O2SAT 97
--- NOTE | 2024-12-16 08:40 | DVHPN2 ---
Reviewed: Care Plan, H&P, Labs, Medications, Previous Orders, Radiology Changes from previous H/P or p: No Changes Eyes: No Pain, No Vision change, No Conjunctivae inflammation, No Eyelid inflammation, No Other, No Redness ENT: No Ear pain, No Ear discharge, No Nose pain, No Nose discharge, No Nose congestion, No Mouth pain, No Mouth swelling, No Throat pain, No Throat swelling, No Other Cardiovascular: No Chest Pain, No Palpitations, No Orthopnea, No Paroxysmal Noc. Dyspnea, No Edema, No Lt Headedness, No Other Respiratory: No Cough, No Dry, No Shortness of breath, No SOB with excertion, No Wheezing, No Hemoptysis, No Pleuritic Pain, No Sputum, No Other Gastrointestinal: Nausea, Vomiting, Abdominal Pain, Diarrhea; No Constipation, No Melena, No Hematochezia, No Other Genitourinary: No Dysuria, No Frequency, No Incontinence, No Hematuria, No Retention, No Other Musculoskeletal: No other, No neck pain, No shoulder pain, No arm pain, No back pain, No hand pain, No leg pain, No foot pain Skin: No Rash, No Lesions, No Jaundice, No Bruising, No Other Objective Vitals Vital Signs Date Time Temp Pulse Resp B/P (MAP) Pulse Ox O2 Delivery O2 Flow Rate FiO2 12/16/24 04:48 97.6 76 18 140/70 (93) 95 97.6 12/15/24 20:00 Room Air* 0 21 Intake/Output Intake and Output 12/16/24 07:00 Intake Total 1200 ml Balance 1200 ml Intake Oral 1200 ml # Voids 7 # Bowel Movements 2 Medications Current Medications Medications Dose Ordered Sig/Jimmy Route Start Time Stop Time Status Last Admin Dose Admin Ondansetron HCl 4 mg Q4HP PRN IV 12/13/24 15:45 12/15/24 23:03 4 MG Docusate Sodium 100 mg BIDPRN PRN PO 12/13/24 15:45 Morphine Sulfate 2 mg Q4HPRN PRN IV 12/13/24 15:45 12/15/24 14:07 2 MG Enoxaparin Sodium 40 mg DAILY SC 12/13/24 15:45 12/15/24 12:17 40 MG Diagnostic Test (Pha) 1 strip ACHS 12/13/24 17:00 12/16/24 06:13 1 STRIP Insulin Human Regular HS SC 12/13/24 22:00 Insulin Human Regular AC SC 12/13/24 17:00 Dextrose 50 ml UD PRN IV 12/13/24 15:45 Nitroglycerin 0.4 mg Q5MINP PRN SL 12/13/24 15:45 Ceftriaxone Sodium 50 ml @ 100 mls/hr DAILY@09 IV 12/15/24 09:00 12/15/24 08:24 100 MLS/HR Metronidazole 100 ml @ 100 mls/hr Q8HR IV 12/14/24 14:00 12/16/24 06:13 100 MLS/HR Mupirocin 1 applic BID EACHNOSTRI 12/15/24 22:00 12/20/24 21:59 12/15/24 20:57 1 APPLIC Diphenhydramine HCl 50 mg Q4HP PRN IV 12/15/24 15:30 12/16/24 06:13 50 MG Linezolid 300 ml @ 150 mls/hr Q12HR IV 12/16/24 10:00 UNV Laboratory Results Laboratory Tests 12/16/24 05:15 Chemistry Test 12/16/24 05:15 Albumin 3.0 g/dL (3.2-4.8) L Calcium Level 8.7 mg/dL (8.7-10.4) Total Protein 4.6 g/dL (5.7-8.2) L LFT Test 12/16/24 05:15 Alanine Aminotransferase (ALT) 14 U/L (7-40) Alkaline Phosphatase 56 U/L (46-116) Aspartate Amino Transferase (AST) 25 U/L (13-40) Total Bilirubin 0.4 mg/dL (0.2-1.0) Urinalysis Test 12/13/24 11:19 Urine Color Light-orange (Yellow) Urine Clarity Ex.turbid (Clear) Urine pH 6.0 (5.0-9.0) Urine Specific [place] 1.014 (1.001-1.035) Urine Protein 1+ (Negative) H Urine Ketones 1+ (Negative) H Urine Blood 2+ /uL (Negative) H Urine Nitrite Negative (Negative) Urine Bilirubin Negative (Negative) Urine Urobilinogen Normal mg/dL (Negative) Urine Leukocyte Esterase 3+ /uL (Negative) Urine RBC 58 /hpf (0 - 4) Urine WBC Clumps Present /hpf (None Seen) Urine Microscopic WBC 1231 /HPF (0-5) H Urine Squamous Epithelial Cells Few /hpf (<5) Urine Bacteria None seen /hpf (None Seen) Urine Mucus Few (None Seen) Urine Glucose Normal mg/dL (Normal) Microbiology Microbiology Date/Time Source Procedure Growth Status 12/14/24 13:11 Blood Blood Culture - Preliminary NO GROWTH AFTER 24 HOURS OF INCUBATION. Resulted 12/14/24 11:39 Nose MRSA Screen - Final Methicillin Resistant S.aureus Complete 12/14/24 11:19 Stool Stool Culture - Preliminary Resulted 12/14/24 11:19 Stool Shiga Toxin I & II - Final Resulted 12/14/24 11:19 Stool Clostridium difficile Toxin Assay - Final Resulted 12/13/24 11:19 Voided Urine Urine Culture - Final Escherichia coli Enterococcus faecalis Complete Labs and/or images reviewed: Labs reviewed by me, Image(s) reviewed by me Assessment/Plan Assessment/Plan Sepsis secondary to urinary tract infection: Blood cultures negative, urine cultures growing E coli and E faecalis, continue Rocephin, add Zyvox 600 mg IV q.12h for E faecalis Acute abdominal pain with the nausea vomiting and diarrhea, Rocephin and Flagyl IV CT abdomen pelvis without contrast negative, GI consult by Dr. Izaiah Magana, Shiga negative C diff negative, possible viral gastroenteritis Recent history of norovirus infection treated with amoxicillin at [facility] Diverticulosis without diverticulitis Diabetes type 2 Acute Hypokalemia: Replace potassium Acute dehydration: IV fluids MRSA in the nose: Bactroban nasal ointment History of lumbar spine surgery Time spent 50 minutes Advanced care planning time 20 minutes Patient is full code Patient Lives in [place] and visiting her daughter here Midline ordered SURESH Ralph at bedside . Plan discussed with: Patient My Orders Orders - BETO CRISTOBAL MD Procedure Category Date Status Time Mupirocin 2% Oint PHA 12/15/24 In Process Mrsa Nares (Bactroban 22:00 Diphenhdramine PHA 12/15/24 In Process Injection (Benadryl 15:30 Linezolid 600mg/300ml PHA 12/16/24 Logged (Zyvox) 10:00 Insert Midline ORDERS 12/16/24 Transmitted 08:27 Date of Service: Dec 16, 2024 Billing Provider: BETO CRISTOBAL MD Common Visit Codes: [id number] INP/OBS CARE(HIGH) BETO CRISTOBAL MD Dec 16, 2024 08:39
[2024-12-16] MEDS: POTASSIUM CHL 20 Meq TABLET PO ONE (09:59)
[2024-12-16 12:30] VITALS: BP 146/76; PULSE 73; RESP 18; TEMP 98.5; O2SAT 96
--- NOTE | 2024-12-16 13:53 | DVHPN2 ---
Subjective Patient is still complaining of nausea vomiting, unable to keep any food down. No hematemesis. Last bowel movement with loose stool Patient also complains of occasional dysphagia Patient has history of cardiomegaly with left chest loop recorder Reviewed: Care Plan, H&P, Labs, Medications, Previous Orders, Radiology Changes from previous H/P or p: No Changes Eyes: No Pain, No Vision change, No Conjunctivae inflammation, No Eyelid inflammation, No Other, No Redness ENT: No Ear pain, No Ear discharge, No Nose pain, No Nose discharge, No Nose congestion, No Mouth pain, No Mouth swelling, No Throat pain, No Throat swelling, No Other Cardiovascular: No Chest Pain, No Palpitations, No Orthopnea, No Paroxysmal Noc. Dyspnea, No Edema, No Lt Headedness, No Other Respiratory: No Cough, No Dry, No Shortness of breath, No SOB with excertion, No Wheezing, No Hemoptysis, No Pleuritic Pain, No Sputum, No Other Gastrointestinal: Nausea, Vomiting, Abdominal Pain, Diarrhea; No Constipation, No Melena, No Hematochezia, No Other Genitourinary: No Dysuria, No Frequency, No Incontinence, No Hematuria, No Retention, No Other Musculoskeletal: No other, No neck pain, No shoulder pain, No arm pain, No back pain, No hand pain, No leg pain, No foot pain Skin: No Rash, No Lesions, No Jaundice, No Bruising, No Other Objective Vitals Vital Signs Date Time Temp Pulse Resp B/P (MAP) Pulse Ox O2 Delivery O2 Flow Rate FiO2 12/16/24 08:30 97.3 68 14 146/60 (88) 97 97.3 12/15/24 20:00 Room Air* 0 21 Intake/Output Intake and Output 12/16/24 07:00 Intake Total 1200 ml Balance 1200 ml Intake Oral 1200 ml # Voids 7 # Bowel Movements 2 General Appearance: Alert, Oriented X3, Cooperative, No acute distress, mild distress, moderate distress, severe distress, Other Lungs: Clear to auscultation, Normal air movement, Other Cardiovascular: Regular rate, Normal S1, Normal S2, No murmurs, Gallops, Rubs, Other Abdomen: Normal bowel sounds, Soft, No tenderness, No hepatospenomegaly, No masses, Other Medications Current Medications Medications Dose Ordered Sig/Jimmy Route Start Time Stop Time Status Last Admin Dose Admin Ondansetron HCl 4 mg Q4HP PRN IV 12/13/24 15:45 12/15/24 23:03 4 MG Docusate Sodium 100 mg BIDPRN PRN PO 12/13/24 15:45 Morphine Sulfate 2 mg Q4HPRN PRN IV 12/13/24 15:45 12/15/24 14:07 2 MG Enoxaparin Sodium 40 mg DAILY SC 12/13/24 15:45 12/16/24 09:59 40 MG Diagnostic Test (Pha) 1 strip ACHS 12/13/24 17:00 12/16/24 11:30 1 STRIP Insulin Human Regular HS SC 12/13/24 22:00 Insulin Human Regular AC SC 12/13/24 17:00 Dextrose 50 ml UD PRN IV 12/13/24 15:45 Nitroglycerin 0.4 mg Q5MINP PRN SL 12/13/24 15:45 Ceftriaxone Sodium 50 ml @ 100 mls/hr DAILY@09 IV 12/15/24 09:00 12/16/24 13:11 100 MLS/HR Metronidazole 100 ml @ 100 mls/hr Q8HR IV 12/14/24 14:00 12/16/24 06:13 100 MLS/HR Mupirocin 1 applic BID EACHNOSTRI 12/15/24 22:00 12/20/24 21:59 12/16/24 09:59 1 APPLIC Linezolid 300 ml @ 150 mls/hr Q12HR IV 12/16/24 10:00 Potassium Chloride 40 meq DAILY PO 12/17/24 10:00 Diphenhydramine HCl 25 mg Q6HP PRN IV 12/16/24 10:15 Laboratory Results Laboratory Tests 12/16/24 05:15 Chemistry Test 12/16/24 05:15 Albumin 3.0 g/dL (3.2-4.8) L Calcium Level 8.7 mg/dL (8.7-10.4) Total Protein 4.6 g/dL (5.7-8.2) L LFT Test 12/16/24 05:15 Alanine Aminotransferase (ALT) 14 U/L (7-40) Alkaline Phosphatase 56 U/L (46-116) Aspartate Amino Transferase (AST) 25 U/L (13-40) Total Bilirubin 0.4 mg/dL (0.2-1.0) Urinalysis Test 12/13/24 11:19 Urine Color Light-orange (Yellow) Urine Clarity Ex.turbid (Clear) Urine pH 6.0 (5.0-9.0) Urine Specific Hall 1.014 (1.001-1.035) Urine Protein 1+ (Negative) H Urine Ketones 1+ (Negative) H Urine Blood 2+ /uL (Negative) H Urine Nitrite Negative (Negative) Urine Bilirubin Negative (Negative) Urine Urobilinogen Normal mg/dL (Negative) Urine Leukocyte Esterase 3+ /uL (Negative) Urine RBC 58 /hpf (0 - 4) Urine WBC Clumps Present /hpf (None Seen) Urine Microscopic WBC 1231 /HPF (0-5) H Urine Squamous Epithelial Cells Few /hpf (<5) Urine Bacteria None seen /hpf (None Seen) Urine Mucus Few (None Seen) Urine Glucose Normal mg/dL (Normal) Microbiology Microbiology Date/Time Source Procedure Growth Status 12/14/24 13:11 Blood Blood Culture - Preliminary NO GROWTH AFTER 48 HOURS OF INCUBATION. Resulted 12/14/24 11:39 Nose MRSA Screen - Final Methicillin Resistant S.aureus Complete 12/14/24 11:19 Stool Stool Culture - Preliminary Resulted 12/14/24 11:19 Stool Shiga Toxin I & II - Final Resulted 12/14/24 11:19 Stool Clostridium difficile Toxin Assay - Final Resulted 12/13/24 11:19 Voided Urine Urine Culture - Final Escherichia coli Enterococcus faecalis Complete Labs and/or images reviewed: Labs reviewed by me, Image(s) reviewed by me Assessment/Plan Assessment/Plan Intractable nausea and vomiting Diarrhea Viral gastroenteritis UTI Plan Discussed with Dr. Magana Echocardiogram Scheduled for EGD with biopsy on 12/17/2024. Discussed risks, benefits and alternatives of procedure and sedation, patient understands and agrees Zofran and Protonix IV antibiotics Plan discussed with: Patient, Daughter Date of Service: Dec 16, 2024 Billing Provider: MIKALA CRISTOBAL Common Visit Codes: [id number] INP/OBS CARE(HIGH) MIKALA CRISTOBAL Dec 16, 2024 13:53
[2024-12-16] MEDS: LINEZOLID 600MG/300ML 300 ML IV SCH (14:55)
[2024-12-16] MEDS: diphenhdrAMINE HCL 50 MG/1 ML VL IV PRN (16:18)
[2024-12-16 16:59] VITALS: BP 158/65; PULSE 70; RESP 16; TEMP 97.4; O2SAT 97
[2024-12-16 20:00] VITALS: RESP 20
[2024-12-16 21:00] VITALS: BP 134/79; PULSE 74; RESP 18; TEMP 97.5; O2SAT 96
[2024-12-17] VITALS (9 sets, daily range): BP systolic 131–160; BP diastolic 62–86; PULSE 71–75; RESP 18–21; TEMP 95.4–98; O2SAT 94–98
[2024-12-17 05:58] LABS: Hematocrit 36.2 % (36.0-46.0); Hemoglobin 12.1 g/dL (12.2-16.2); Mean Corpuscular Hemoglobin 29.9 pg (28.0-32.0); Mean Corpuscular Volume 89.2 fL (80.0-100.0); Nucleated Red Blood Cells % 0.1 %
[2024-12-17 06:14] LABS: Alanine Aminotransferase 14 U/L (7-40); Alkaline Phosphatase 58 U/L (46-116); Anion Gap 13 (5-15); Calcium 9.2 mg/dL (8.7-10.4); Carbon Dioxide 21 mmol/L (20-31); Sodium 143 mmol/L (136-145)
[2024-12-17 06:15] LABS: Bilirubin, Total 0.4 mg/dL (0.2-1.0)
[2024-12-17 06:16] LABS: Albumin 3.2 g/dL (3.2-4.8); BUN/Creatinine Ratio 8.2 (10.0-20.0); Blood Urea Nitrogen < 5 mg/dL (9-23); Chloride 109 mmol/L (98-107); Glucose 109 mg/dL (74-106); Potassium 3.0 mmol/L (3.5-5.1); Total Protein 4.8 g/dL (5.7-8.2)
[2024-12-17 06:21] LABS: INR 1.07 (0.9-1.15); Prothrombin Time 11.3 sec (9.3-11.8)
--- NOTE | 2024-12-17 07:41 | DVH ---
CHEST RADIOGRAPH Indication: pre op Technique: Single frontal view of the chest was obtained COMPARISON: None FINDINGS: Lines and Tubes: None Lungs: Clear Pleura: No effusion. No pneumothorax. Cardiomediastinal contours: Unremarkable Bones: Unremarkable IMPRESSION: 1. No acute disease.
[2024-12-17] MEDS ORDERED: SODIUM CHLORIDE LOCK 10 ML ONE (09:27)
[2024-12-17] MEDS ORDERED: LIDOCAINE VISCOUS 2% 15ML UD ONE (09:27)
[2024-12-17] MEDS ORDERED: fentaNYL CITRATE 100 MCG/2 ML VL ONE (09:28)
[2024-12-17] MEDS ORDERED: MIDAZOLAM HCL 5 MG/ML-1ML VIAL ONE (09:28)
[2024-12-17] MEDS ORDERED: diphenhdrAMINE HCL 50 MG/1 ML VL ONE (09:28)
--- NOTE | 2024-12-17 09:55 | DVHPN2 ---
Reviewed: Care Plan, H&P, Labs, Medications, Previous Orders, Radiology Changes from previous H/P or p: No Changes Eyes: No Pain, No Vision change, No Conjunctivae inflammation, No Eyelid inflammation, No Other, No Redness ENT: No Ear pain, No Ear discharge, No Nose pain, No Nose discharge, No Nose congestion, No Mouth pain, No Mouth swelling, No Throat pain, No Throat swelling, No Other Cardiovascular: No Chest Pain, No Palpitations, No Orthopnea, No Paroxysmal Noc. Dyspnea, No Edema, No Lt Headedness, No Other Respiratory: No Cough, No Dry, No Shortness of breath, No SOB with excertion, No Wheezing, No Hemoptysis, No Pleuritic Pain, No Sputum, No Other Gastrointestinal: Nausea, Vomiting, Abdominal Pain, Diarrhea; No Constipation, No Melena, No Hematochezia, No Other Genitourinary: No Dysuria, No Frequency, No Incontinence, No Hematuria, No Retention, No Other Musculoskeletal: No other, No neck pain, No shoulder pain, No arm pain, No back pain, No hand pain, No leg pain, No foot pain Skin: No Rash, No Lesions, No Jaundice, No Bruising, No Other Objective Vitals Vital Signs Date Time Temp Pulse Resp B/P (MAP) Pulse Ox O2 Delivery O2 Flow Rate FiO2 12/17/24 09:07 98.0 71 21 156/79 (104) 94 98.0 12/16/24 20:00 Room Air* 0 21 Intake/Output Intake and Output 12/17/24 06:59 Intake Total 850 ml Balance 850 ml IV Total 850 ml # Voids 8 # Bowel Movements 3 General Appearance: Alert, Oriented X3, Cooperative, No acute distress, mild distress, moderate distress, severe distress, Other Lungs: Clear to auscultation, Normal air movement, Other Cardiovascular: Regular rate, Normal S1, Normal S2, No murmurs, Gallops, Rubs, Other Abdomen: Normal bowel sounds, Soft, No tenderness, No hepatospenomegaly, No masses, Other Medications Current Medications Medications Dose Ordered Sig/Jimmy Route Start Time Stop Time Status Last Admin Dose Admin Ondansetron HCl 4 mg Q4HP PRN IV 12/13/24 15:45 12/15/24 23:03 4 MG Docusate Sodium 100 mg BIDPRN PRN PO 12/13/24 15:45 Morphine Sulfate 2 mg Q4HPRN PRN IV 12/13/24 15:45 12/15/24 14:07 2 MG Enoxaparin Sodium 40 mg DAILY SC 12/13/24 15:45 12/16/24 09:59 40 MG Diagnostic Test (Pha) 1 strip ACHS 12/13/24 17:00 12/17/24 06:47 1 STRIP Insulin Human Regular HS SC 12/13/24 22:00 Insulin Human Regular AC SC 12/13/24 17:00 Dextrose 50 ml UD PRN IV 12/13/24 15:45 Nitroglycerin 0.4 mg Q5MINP PRN SL 12/13/24 15:45 Ceftriaxone Sodium 50 ml @ 100 mls/hr DAILY@09 IV 12/15/24 09:00 12/16/24 13:11 100 MLS/HR Metronidazole 100 ml @ 100 mls/hr Q8HR IV 12/14/24 14:00 12/17/24 06:46 100 MLS/HR Mupirocin 1 applic BID EACHNOSTRI 12/15/24 22:00 12/20/24 21:59 12/16/24 09:59 1 APPLIC Linezolid 300 ml @ 150 mls/hr Q12HR IV 12/16/24 10:00 12/16/24 23:42 150 MLS/HR Potassium Chloride 40 meq DAILY PO 12/17/24 10:00 Diphenhydramine HCl 25 mg Q6HP PRN IV 12/16/24 10:15 12/16/24 22:24 25 MG Laboratory Results Laboratory Tests 12/17/24 05:00 Chemistry Test 12/17/24 05:00 Albumin 3.2 g/dL (3.2-4.8) Calcium Level 9.2 mg/dL (8.7-10.4) Total Protein 4.8 g/dL (5.7-8.2) L Coagulation Test 12/17/24 05:00 Prothrombin Time 11.3 sec (9.3-11.8) Prothrombin Time INR 1.07 (0.9-1.15) LFT Test 12/17/24 05:00 Alanine Aminotransferase (ALT) 14 U/L (7-40) Alkaline Phosphatase 58 U/L (46-116) Aspartate Amino Transferase (AST) 24 U/L (13-40) Total Bilirubin 0.4 mg/dL (0.2-1.0) Urinalysis Test 12/13/24 11:19 Urine Color Light-orange (Yellow) Urine Clarity Ex.turbid (Clear) Urine pH 6.0 (5.0-9.0) Urine Specific Hall 1.014 (1.001-1.035) Urine Protein 1+ (Negative) H Urine Ketones 1+ (Negative) H Urine Blood 2+ /uL (Negative) H Urine Nitrite Negative (Negative) Urine Bilirubin Negative (Negative) Urine Urobilinogen Normal mg/dL (Negative) Urine Leukocyte Esterase 3+ /uL (Negative) Urine RBC 58 /hpf (0 - 4) Urine WBC Clumps Present /hpf (None Seen) Urine Microscopic WBC 1231 /HPF (0-5) H Urine Squamous Epithelial Cells Few /hpf (<5) Urine Bacteria None seen /hpf (None Seen) Urine Mucus Few (None Seen) Urine Glucose Normal mg/dL (Normal) Microbiology Microbiology Date/Time Source Procedure Growth Status 12/14/24 13:11 Blood Blood Culture - Preliminary NO GROWTH AFTER 48 HOURS OF INCUBATION. Resulted 12/14/24 11:39 Nose MRSA Screen - Final Methicillin Resistant S.aureus Complete 12/14/24 11:19 Stool Stool Culture - Preliminary Resulted 12/14/24 11:19 Stool Shiga Toxin I & II - Final Resulted 12/14/24 11:19 Stool Clostridium difficile Toxin Assay - Final Resulted 12/13/24 11:19 Voided Urine Urine Culture - Final Escherichia coli Enterococcus faecalis Complete Labs and/or images reviewed: Labs reviewed by me, Image(s) reviewed by me Assessment/Plan Assessment/Plan Sepsis secondary to urinary tract infection: Blood cultures negative, urine cultures growing E coli and E faecalis, continue Rocephin, add Zyvox 600 mg IV q.12h for E faecalis Acute abdominal pain with the nausea vomiting and diarrhea, Rocephin and Flagyl IV CT abdomen pelvis without contrast negative, GI consult by Dr. Izaiah Magana, Shiga negative C diff negative, possible viral gastroenteritis, patient getting EGD today Recent history of norovirus infection treated with amoxicillin at [facility] Diverticulosis without diverticulitis Diabetes type 2 Acute Hypokalemia: Replace potassium Acute dehydration: IV fluids MRSA in the nose: Bactroban nasal ointment History of lumbar spine surgery Time spent 50 minutes Advanced care planning time 20 minutes Patient is full code Patient Lives in [place] and visiting her daughter here Midline in place RN Loree at bedside SNF vs Home Health for IV antibiotics Dread at bedside . Plan discussed with: Patient My Orders Orders - BETO CRISTOBAL MD Procedure Category Date Status Time Diphenhdramine PHA 12/16/24 In Process Injection (Benadryl 10:15 * Production Grip CONS 12/16/24 Transmitted Consult 11:12 Date of Service: Dec 17, 2024 Billing Provider: BETO CRISTOBAL MD Common Visit Codes: [id number] INP/OBS CARE(HIGH) BETO CRISTOBAL MD Dec 17, 2024 09:55
[2024-12-17] MEDS: POTASSIUM CHL 20 Meq TABLET PO SCH (10:00)
--- NOTE | 2024-12-17 10:52 | DVHSR ---
APPROVED REPORT EXAM: Two-dimensional and M-mode echocardiogram with Doppler and color Doppler. Blood Pressure: 146/60 mmHg INDICATION Cardiomegally RISK FACTORS Height: 5'10", Weight: 257 DIMENSIONS LVDd5.1 (3.8-5.7cm)LA (2D)4.2 (1.9-4.0cm)Aortic Root3.3 (2.0-3.7cm) LVDs3.1 (2.5-4.0cm)LA (MM) (1.9-4.0cm)Aortic Cusp Exc1.9 (1.5-2.0cm) EF (%) 70.0 (55-70%)Rt. Atrium3.5 (1.9-4.0cm)Asc. Aorta3.0 cm IVSd0.9 (0.7-1.1cm)RV (D)3.6 (1.8-2.4cm) PWd0.8 (0.7-1.1cm) Mitral Valve MitralMitral Stenosis E wave0.74m/sMV Mean GR.mmHg A wave0.63m/sMV Peak GR.mmHg E/A ratio1.22D MVAcm2 DECEL [id number] 1/2 Timems Aortic Valve Aortic ValveAortic Stenosis V11.16m/Trini Mean GR.4mmHg V21.42m/Trini Peak GR.8mmHg LVOT Diameter2.2 (1.8-2.4cm)Doppler AVA3.10cm2 Pulmonic Valve V20.76m/s Conclusion lvef 60% by visual estimate normal rv function borderline left atrium enlarged mild mitral regurg
[2024-12-17] MEDS: LIDOCAINE VISCOUS 2% 15ML UD MT ONE (15:29)
--- NOTE | 2024-12-17 15:46 | DVHOP2 ---
Operative Report DATE OF OPERATION: 12/17/24 PROCEDURE: Upper Endoscopy with biopsy. PREOPERATIVE INDICATION: The patient is a 74 -year-old female undergoing endoscopy for nausea vomiting and inability to keep food down POSTOPERATIVE DIAGNOSES: 1. Patient had a 1 cm sliding-type hiatal hernia with grade A to B linear er osive esophagitis 2. Moderate gastritis with some hyperemia erythema PROCEDURE PERFORMED BY: Kerry Magana GI NURSE: Kelsey SCOPE: Olympus videoendoscope. ASA CLASS: 2. PREOPERATIVE MEDICATIONS: Versed 2 mg, Fentanyl 50 mcg, Benadryl 50 mg I administered moderate sedation throughout this _8_ minutes procedure. An independent trained observer pushed medications at my direction, and monitored the patient's level of consciousness and physiological status throughout. PROCEDURE IN DETAIL: After obtaining an informed consent, the patient was placed on left lateral decubitus position. The patient was then sedated with the above medications. A bite block was placed between her teeth. The endoscope was then passed through the oropharynx, into the esophagus, and through the stomach and pylorus up to the second and third part of the duodenum. The endoscope was then withdrawn. The 2nd and 3rd part of the duodenum and the duodenal bulb were normal. Duodenal biopsies were obtained The pre-pyloric area and antrum and body of the stomach showed [id number] gastritis with hyperemia erythema On retroflexion the fundus and cardia were normal. Gastric biopsies were obtained. The endoscope was then withdrawn into distal esophagus Patient had a 1-2 cm sliding-type hiatal hernia with grade A to B linear erosive esophagitis at the GE junction. GE junction biopsies were obtained The remaining distal and proximal esophagus and oropharynx were unremarkable The patient tolerated the procedure well without difficulty. COMPLICATIONS : None SPECIMENS: Duodenal biopsies Gastric biopsies GE junction biopsies DISPOSITION: Transfer back to the floor Stable PLAN: 1. Await for biopsy result 2. Will place pt on Protonix 40 mg bid 3. Carafate 1 g p.o. 4 times a day 4. DC aspirin NSAIDs smoking alcohol 5. Resume GI soft diet advance as tolerated 6. Outpatient follow up with GI Services review results and discuss further management KERRY MAGANA MD Dec 17, 2024 15:46
[2024-12-17] MEDS: BENAZEPRIL HCL 10 MG TAB PO ONE (17:54)
[2024-12-17] MEDS: POTASSIUM CHL 20MEQ/100ML 100 ML IV ONE (21:11)
[2024-12-18] VITALS (8 sets, daily range): BP systolic 129–163; BP diastolic 61–92; PULSE 67–94; RESP 17–20; TEMP 97.5–98; O2SAT 93–99
[2024-12-18 07:23] LABS: Alanine Aminotransferase 13 U/L (7-40); Alkaline Phosphatase 53 U/L (46-116); Anion Gap 13 (5-15); Calcium 9.1 mg/dL (8.7-10.4); Carbon Dioxide 21 mmol/L (20-31); Sodium 143 mmol/L (136-145)
[2024-12-18 07:24] LABS: Bilirubin, Total 0.4 mg/dL (0.2-1.0)
[2024-12-18 07:29] LABS: Albumin 3.0 g/dL (3.2-4.8); BUN/Creatinine Ratio 8.2 (10.0-20.0); Blood Urea Nitrogen < 5 mg/dL (9-23); Chloride 109 mmol/L (98-107); Glucose 108 mg/dL (74-106); Potassium 2.9 mmol/L (3.5-5.1); Total Protein 4.6 g/dL (5.7-8.2)
--- NOTE | 2024-12-18 10:23 | DVHPN2 ---
Reviewed: Care Plan, H&P, Labs, Medications, Previous Orders, Radiology Changes from previous H/P or p: No Changes Eyes: No Pain, No Vision change, No Conjunctivae inflammation, No Eyelid inflammation, No Other, No Redness ENT: No Ear pain, No Ear discharge, No Nose pain, No Nose discharge, No Nose congestion, No Mouth pain, No Mouth swelling, No Throat pain, No Throat swelling, No Other Cardiovascular: No Chest Pain, No Palpitations, No Orthopnea, No Paroxysmal Noc. Dyspnea, No Edema, No Lt Headedness, No Other Respiratory: No Cough, No Dry, No Shortness of breath, No SOB with excertion, No Wheezing, No Hemoptysis, No Pleuritic Pain, No Sputum, No Other Gastrointestinal: Nausea, Vomiting, Abdominal Pain, Diarrhea; No Constipation, No Melena, No Hematochezia, No Other Genitourinary: No Dysuria, No Frequency, No Incontinence, No Hematuria, No Retention, No Other Musculoskeletal: No other, No neck pain, No shoulder pain, No arm pain, No back pain, No hand pain, No leg pain, No foot pain Skin: No Rash, No Lesions, No Jaundice, No Bruising, No Other Objective Vitals Vital Signs Date Time Temp Pulse Resp B/P (MAP) Pulse Ox O2 Delivery O2 Flow Rate FiO2 12/18/24 08:26 97.9 71 20 146/61 (89) 93 97.9 12/17/24 20:00 Room Air* 0 21 Intake/Output Intake and Output 12/18/24 07:00 Intake Total 1990 ml Balance 1990 ml Intake Oral 840 ml IV Total 1150 ml # Voids 4 General Appearance: Alert, Oriented X3, Cooperative, No acute distress, mild distress, moderate distress, severe distress, Other Lungs: Clear to auscultation, Normal air movement, Other Cardiovascular: Regular rate, Normal S1, Normal S2, No murmurs, Gallops, Rubs, Other Abdomen: Normal bowel sounds, Soft, No tenderness, No hepatospenomegaly, No masses, Other Medications Current Medications Medications Dose Ordered Sig/Jimmy Route Start Time Stop Time Status Last Admin Dose Admin Ondansetron HCl 4 mg Q4HP PRN IV 12/13/24 15:45 12/17/24 17:53 4 MG Docusate Sodium 100 mg BIDPRN PRN PO 12/13/24 15:45 Morphine Sulfate 2 mg Q4HPRN PRN IV 12/13/24 15:45 12/17/24 22:42 2 MG Enoxaparin Sodium 40 mg DAILY SC 12/13/24 15:45 12/16/24 09:59 40 MG Diagnostic Test (Pha) 1 strip ACHS 12/13/24 17:00 12/18/24 06:01 1 STRIP Insulin Human Regular HS SC 12/13/24 22:00 Insulin Human Regular AC SC 12/13/24 17:00 Dextrose 50 ml UD PRN IV 12/13/24 15:45 Nitroglycerin 0.4 mg Q5MINP PRN SL 12/13/24 15:45 Ceftriaxone Sodium 50 ml @ 100 mls/hr DAILY@09 IV 12/15/24 09:00 12/17/24 10:03 100 MLS/HR Metronidazole 100 ml @ 100 mls/hr Q8HR IV 12/14/24 14:00 12/18/24 05:56 100 MLS/HR Mupirocin 1 applic BID EACHNOSTRI 12/15/24 22:00 12/20/24 21:59 12/17/24 21:11 1 APPLIC Linezolid 300 ml @ 150 mls/hr Q12HR IV 12/16/24 10:00 12/18/24 00:11 150 MLS/HR Potassium Chloride 40 meq DAILY PO 12/17/24 10:00 Diphenhydramine HCl 25 mg Q6HP PRN IV 12/16/24 10:15 12/16/24 22:24 25 MG Benazepril HCl 10 mg DAILY PO 12/18/24 10:00 Amlodipine Besylate 5 mg DAILY PO 12/18/24 10:00 UNV Laboratory Results Laboratory Tests 12/17/24 05:00 12/18/24 05:07 Chemistry Test 12/18/24 05:07 Albumin 3.0 g/dL (3.2-4.8) L Calcium Level 9.1 mg/dL (8.7-10.4) Total Protein 4.6 g/dL (5.7-8.2) L LFT Test 12/18/24 05:07 Alanine Aminotransferase (ALT) 13 U/L (7-40) Alkaline Phosphatase 53 U/L (46-116) Aspartate Amino Transferase (AST) 25 U/L (13-40) Total Bilirubin 0.4 mg/dL (0.2-1.0) Urinalysis Test 12/13/24 11:19 Urine Color Light-orange (Yellow) Urine Clarity Ex.turbid (Clear) Urine pH 6.0 (5.0-9.0) Urine Specific [place] 1.014 (1.001-1.035) Urine Protein 1+ (Negative) H Urine Ketones 1+ (Negative) H Urine Blood 2+ /uL (Negative) H Urine Nitrite Negative (Negative) Urine Bilirubin Negative (Negative) Urine Urobilinogen Normal mg/dL (Negative) Urine Leukocyte Esterase 3+ /uL (Negative) Urine RBC 58 /hpf (0 - 4) Urine WBC Clumps Present /hpf (None Seen) Urine Microscopic WBC 1231 /HPF (0-5) H Urine Squamous Epithelial Cells Few /hpf (<5) Urine Bacteria None seen /hpf (None Seen) Urine Mucus Few (None Seen) Urine Glucose Normal mg/dL (Normal) Microbiology Microbiology Date/Time Source Procedure Growth Status 12/16/24 01:30 Urine - Midstream Clean Catch Urine Culture - Final Complete 12/14/24 13:11 Blood Blood Culture - Preliminary NO GROWTH AFTER 72 HOURS OF INCUBATION. Resulted 12/14/24 11:39 Nose MRSA Screen - Final Methicillin Resistant S.aureus Complete 12/14/24 11:19 Stool Stool Culture - Final Complete 12/14/24 11:19 Stool Shiga Toxin I & II - Final Complete 12/14/24 11:19 Stool Clostridium difficile Toxin Assay - Final Complete Labs and/or images reviewed: Labs reviewed by me, Image(s) reviewed by me Assessment/Plan Assessment/Plan Sepsis secondary to urinary tract infection: Blood cultures negative, urine cultures growing E coli and E faecalis, continue Rocephin, add Zyvox 600 mg IV q.12h for E faecalis Acute abdominal pain with the nausea vomiting and diarrhea, Rocephin and Flagyl IV CT abdomen pelvis without contrast negative, GI consult by Dr. Izaiah Magana, Shiga negative C diff negative, possible viral gastroenteritis, GRADE B ESOPHAGITIS AND MODERATE GASTRITIS BY EGD BY DR. Izaiah MAGANA 12/17/2024 Recent history of norovirus infection treated with amoxicillin at [facility] Diverticulosis without diverticulitis Diabetes type 2 Acute Hypokalemia: Replace potassium Acute dehydration: IV fluids MRSA in the nose: Bactroban nasal ointment History of lumbar spine surgery Time spent 50 minutes Advanced care planning time 20 minutes Patient is full code Patient Lives in [place] and visiting her daughter here Midline in place RN Loree at bedside SNF vs Home Health for IV antibiotics Dread at bedside . Plan discussed with: Patient Date of Service: Dec 18, 2024 Billing Provider: BETO CRISTOBAL MD Common Visit Codes: [id number] CARE 30-74 MIN BETO CRISTOBAL MD Dec 18, 2024 10:23
[2024-12-18] MEDS: POTASSIUM CHLORIDE 40 MEQ in D5W/LACTATED RINGERS 1,000 ML IV SCH (10:30)
[2024-12-18] MEDS: BENAZEPRIL HCL 10 MG TAB PO SCH (11:12)
[2024-12-18] MEDS: POTASSIUM CHL 20MEQ/100ML 100 ML IV SCH (13:54)
--- NOTE | 2024-12-18 22:19 | DVHPN2 ---
Progress Note - Dictate Date Seen: Dec 18, 2024 Medical Necessity Reason Pt with a Central, PICC or Fol: Yes Subjective No new complaints Tolerating diet IV antibiotics for UTI EGD findings moderate gastritis hiatal hernia with a esophagitis vital signs Vital Sign Date Time Temp Pulse Resp B/P (MAP) Pulse Ox O2 Delivery O2 Flow Rate FiO2 12/18/24 21:00 98.0 94 18 129/92 (104) 99 98.0 12/18/24 08:00 Room Air* 0 21 Total Intake and Output 12/17/24 12/17/24 12/18/24 15:00 23:00 07:00 Intake Total 450 ml 100 ml 1440 ml Balance 450 ml 100 ml 1440 ml medications Current Medications Medications Dose Ordered Sig/Jimmy Route Start Time Stop Time Status Last Admin Dose Admin Ondansetron HCl 4 mg Q4HP PRN IV 12/13/24 15:45 12/18/24 18:36 4 MG Docusate Sodium 100 mg BIDPRN PRN PO 12/13/24 15:45 Morphine Sulfate 2 mg Q4HPRN PRN IV 12/13/24 15:45 12/18/24 15:26 2 MG Enoxaparin Sodium 40 mg DAILY SC 12/13/24 15:45 12/18/24 11:20 40 MG Diagnostic Test (Pha) 1 strip ACHS 12/13/24 17:00 12/18/24 21:51 1 STRIP Insulin Human Regular HS SC 12/13/24 22:00 Insulin Human Regular AC SC 12/13/24 17:00 Dextrose 50 ml UD PRN IV 12/13/24 15:45 Nitroglycerin 0.4 mg Q5MINP PRN SL 12/13/24 15:45 Ceftriaxone Sodium 50 ml @ 100 mls/hr DAILY@09 IV 12/15/24 09:00 12/18/24 11:11 100 MLS/HR Metronidazole 100 ml @ 100 mls/hr Q8HR IV 12/14/24 14:00 12/18/24 21:40 100 MLS/HR Mupirocin 1 applic BID EACHNOSTRI 12/15/24 22:00 12/20/24 21:59 12/18/24 21:41 1 APPLIC Linezolid 300 ml @ 150 mls/hr Q12HR IV 12/16/24 10:00 12/18/24 12:05 150 MLS/HR Potassium Chloride 40 meq DAILY PO 12/17/24 10:00 Diphenhydramine HCl 25 mg Q6HP PRN IV 12/16/24 10:15 12/18/24 20:32 25 MG Benazepril HCl 10 mg DAILY PO 12/18/24 10:00 12/18/24 11:12 10 MG Amlodipine Besylate 5 mg DAILY PO 12/18/24 10:00 UNV Potassium Chloride 40 meq/ Dextrose/Lactated Ringer's 1,020 ml @ 100 mls/hr [id number] IV 12/18/24 10:30 objective General Appearance: Alert, Oriented X3, Cooperative, No acute distress HEENT: Atraumatic, PERRLA, EOMI, Mucous membr. moist/pink Respiratory: Clear to auscultation, Normal air movement Cardiovascular: Regular rate, Normal S1, Normal S2, No murmurs Abdominal: Normal bowel sounds, Soft, No tenderness, No hepatospenomegaly, No masses Extremities: No clubbing, No cyanosis, No edema, Normal pulses, No tenderness/swelling Skin: No rashes, No breakdown, No significant lesion Neuro: Normal gait, Normal speech, Strength at 5/5 X4 ext, Normal tone, Sensation intact, Cranial nerves 3-12 NL Psych/Mental Status: Mental status NL, Mood NL laboratory and microbiology Laboratory Tests 12/18/24 05:07 12/17/24 05:00 Test 12/18/24 05:07 Range/Units Serum Glucose 108 H 74-106 mg/dL Problems(with codes): (1) Hiatal hernia with GERD and esophagitis (2) Nausea vomiting and diarrhea (3) Viral gastroenteritis (4) UTI (urinary tract infection) (5) Hypokalemia Prognosis Plan IV Protonix 40 mg q.12 hours Carafate 1 g p.o. twice a day Advance diet as tolerated Sepsis secondary to urinary tract infection: Blood cultures negative, urine cultures growing E coli and E faecalis, continue Rocephin, add Zyvox 600 mg IV q.12h for E faecalis Acute abdominal pain with the nausea vomiting and diarrhea, Rocephin and Flagyl IV CT abdomen pelvis without contrast negative, Shiga negative C diff negative, possible viral gastroenteritis, GRADE B ESOPHAGITIS AND MODERATE GASTRITIS BY EGD Recent history of norovirus infection treated with amoxicillin at [facility] Diverticulosis without diverticulitis Diabetes type 2 Acute Hypokalemia: Replace potassium Acute dehydration: IV fluids Dietary Evaluation Review Comments: 1) Encourage optimal PO intake 2) Advance to 60g CCHO diet when medically feasible 3) Refer to outpatient RD/CDCES for weight management 4) Follow-up with gastroenterology 5) Continue to monitor I&O, labs, and skin integrity Expected Outcomes/Goals: 1) appetite and labs to improve 2) diet to advance 3) gradual wt loss 4) f/u in 3-5 days Plan discussed with: Patient, Other (Delores lacey) KERRY TOMAS MD Dec 18, 2024 22:19
[2024-12-19] VITALS (7 sets, daily range): BP systolic 145–164; BP diastolic 66–83; PULSE 72–97; RESP 17–18; TEMP 97.2–98; O2SAT 94–97
[2024-12-19 07:07] LABS: Hematocrit 36.7 % (36.0-46.0); Hemoglobin 12.0 g/dL (12.2-16.2); Mean Corpuscular Hemoglobin 29.2 pg (28.0-32.0); Mean Corpuscular Volume 89.7 fL (80.0-100.0); Nucleated Red Blood Cells % 0.0 %
[2024-12-19 07:20] LABS: Alanine Aminotransferase 13 U/L (7-40); Alkaline Phosphatase 53 U/L (46-116); Anion Gap 10 (5-15); Bilirubin, Total 0.4 mg/dL (0.2-1.0); Calcium 8.8 mg/dL (8.7-10.4); Carbon Dioxide 23 mmol/L (20-31); Sodium 141 mmol/L (136-145)
[2024-12-19 07:24] LABS: Albumin 2.9 g/dL (3.2-4.8); BUN/Creatinine Ratio 8.6 (10.0-20.0); Blood Urea Nitrogen < 5 mg/dL (9-23); Chloride 108 mmol/L (98-107); Glucose 143 mg/dL (74-106); Potassium 3.1 mmol/L (3.5-5.1); Total Protein 4.9 g/dL (5.7-8.2)
--- NOTE | 2024-12-19 09:35 | DVHPN2 ---
Reviewed: Care Plan, H&P, Labs, Medications, Previous Orders, Radiology Changes from previous H/P or p: No Changes Eyes: No Pain, No Vision change, No Conjunctivae inflammation, No Eyelid inflammation, No Other, No Redness ENT: No Ear pain, No Ear discharge, No Nose pain, No Nose discharge, No Nose congestion, No Mouth pain, No Mouth swelling, No Throat pain, No Throat swelling, No Other Cardiovascular: No Chest Pain, No Palpitations, No Orthopnea, No Paroxysmal Noc. Dyspnea, No Edema, No Lt Headedness, No Other Respiratory: No Cough, No Dry, No Shortness of breath, No SOB with excertion, No Wheezing, No Hemoptysis, No Pleuritic Pain, No Sputum, No Other Gastrointestinal: Nausea, Vomiting, Abdominal Pain, Diarrhea; No Constipation, No Melena, No Hematochezia, No Other Genitourinary: No Dysuria, No Frequency, No Incontinence, No Hematuria, No Retention, No Other Musculoskeletal: No other, No neck pain, No shoulder pain, No arm pain, No back pain, No hand pain, No leg pain, No foot pain Skin: No Rash, No Lesions, No Jaundice, No Bruising, No Other Objective Vitals Vital Signs Date Time Temp Pulse Resp B/P (MAP) Pulse Ox O2 Delivery O2 Flow Rate FiO2 12/19/24 09:23 98.0 72 18 145/68 (93) 96 98.0 12/18/24 20:00 Room Air* 0 21 Intake/Output Intake and Output 12/19/24 07:00 Intake Total 2250 ml Output Total 1 ml Balance 2249 ml Intake Oral 1600 ml IV Total 650 ml Stool Total 1 ml # Voids 7 # Bowel Movements 1 General Appearance: Alert, Oriented X3, Cooperative, No acute distress, mild distress, moderate distress, severe distress, Other Lungs: Clear to auscultation, Normal air movement, Other Cardiovascular: Regular rate, Normal S1, Normal S2, No murmurs, Gallops, Rubs, Other Abdomen: Normal bowel sounds, Soft, No tenderness, No hepatospenomegaly, No masses, Other Medications Current Medications Medications Dose Ordered Sig/Jimmy Route Start Time Stop Time Status Last Admin Dose Admin Ondansetron HCl 4 mg Q4HP PRN IV 12/13/24 15:45 12/19/24 06:18 4 MG Docusate Sodium 100 mg BIDPRN PRN PO 12/13/24 15:45 Morphine Sulfate 2 mg Q4HPRN PRN IV 12/13/24 15:45 12/18/24 22:48 2 MG Enoxaparin Sodium 40 mg DAILY SC 12/13/24 15:45 12/19/24 09:23 40 MG Diagnostic Test (Pha) 1 strip ACHS 12/13/24 17:00 12/19/24 06:41 1 STRIP Insulin Human Regular HS SC 12/13/24 22:00 Insulin Human Regular AC SC 12/13/24 17:00 12/19/24 06:41 2 UNITS Dextrose 50 ml UD PRN IV 12/13/24 15:45 Nitroglycerin 0.4 mg Q5MINP PRN SL 12/13/24 15:45 Ceftriaxone Sodium 50 ml @ 100 mls/hr DAILY@09 IV 12/15/24 09:00 12/19/24 09:14 100 MLS/HR Metronidazole 100 ml @ 100 mls/hr Q8HR IV 12/14/24 14:00 12/19/24 05:52 100 MLS/HR Mupirocin 1 applic BID EACHNOSTRI 12/15/24 22:00 12/20/24 21:59 12/19/24 09:18 1 APPLIC Linezolid 300 ml @ 150 mls/hr Q12HR IV 12/16/24 10:00 12/19/24 09:20 150 MLS/HR Potassium Chloride 40 meq DAILY PO 12/17/24 10:00 Diphenhydramine HCl 25 mg Q6HP PRN IV 12/16/24 10:15 12/19/24 06:18 25 MG Benazepril HCl 10 mg DAILY PO 12/18/24 10:00 12/19/24 09:22 10 MG Amlodipine Besylate 5 mg DAILY PO 12/18/24 10:00 UNV Potassium Chloride 40 meq/ Dextrose/Lactated Ringer's 1,020 ml @ 100 mls/hr [id number] IV 12/18/24 10:30 12/18/24 23:02 100 MLS/HR Laboratory Results Laboratory Tests 12/19/24 05:35 Chemistry Test 12/19/24 05:35 Albumin 2.9 g/dL (3.2-4.8) L Calcium Level 8.8 mg/dL (8.7-10.4) Total Protein 4.9 g/dL (5.7-8.2) L LFT Test 12/19/24 05:35 Alanine Aminotransferase (ALT) 13 U/L (7-40) Alkaline Phosphatase 53 U/L (46-116) Aspartate Amino Transferase (AST) 27 U/L (13-40) Total Bilirubin 0.4 mg/dL (0.2-1.0) Urinalysis Test 12/13/24 11:19 Urine Color Light-orange (Yellow) Urine Clarity Ex.turbid (Clear) Urine pH 6.0 (5.0-9.0) Urine Specific [place] 1.014 (1.001-1.035) Urine Protein 1+ (Negative) H Urine Ketones 1+ (Negative) H Urine Blood 2+ /uL (Negative) H Urine Nitrite Negative (Negative) Urine Bilirubin Negative (Negative) Urine Urobilinogen Normal mg/dL (Negative) Urine Leukocyte Esterase 3+ /uL (Negative) Urine RBC 58 /hpf (0 - 4) Urine WBC Clumps Present /hpf (None Seen) Urine Microscopic WBC 1231 /HPF (0-5) H Urine Squamous Epithelial Cells Few /hpf (<5) Urine Bacteria None seen /hpf (None Seen) Urine Mucus Few (None Seen) Urine Glucose Normal mg/dL (Normal) Microbiology Microbiology Date/Time Source Procedure Growth Status 12/16/24 01:30 Urine - Midstream Clean Catch Urine Culture - Final Complete 12/14/24 13:11 Blood Blood Culture - Preliminary NO GROWTH AFTER 72 HOURS OF INCUBATION. Resulted 12/14/24 11:39 Nose MRSA Screen - Final Methicillin Resistant S.aureus Complete 12/14/24 11:19 Stool Stool Culture - Final Complete 12/14/24 11:19 Stool Shiga Toxin I & II - Final Complete 12/14/24 11:19 Stool Clostridium difficile Toxin Assay - Final Complete Labs and/or images reviewed: Labs reviewed by me, Image(s) reviewed by me Assessment/Plan Assessment/Plan Sepsis secondary to urinary tract infection: Blood cultures negative, urine cultures growing E coli and E faecalis, continue Rocephin, add Zyvox 600 mg IV q.12h for E faecalis Acute abdominal pain with the nausea vomiting and diarrhea, Rocephin and Flagyl IV CT abdomen pelvis without contrast negative, GI consult by Dr. Izaiah Magana, Shiga negative C diff negative, possible viral gastroenteritis, GRADE B ESOPHAGITIS AND MODERATE GASTRITIS BY EGD BY DR. Izaiah MAGANA 12/17/2024 Recent history of norovirus infection treated with amoxicillin at [facility] Diverticulosis without diverticulitis Diabetes type 2 Intractable diarrhea: Imodium p.r.n. Acute Hypokalemia: Replace potassium Acute dehydration: IV fluids MRSA in the nose: Bactroban nasal ointment History of lumbar spine surgery Time spent 50 minutes Advanced care planning time 20 minutes Patient is full code Patient Lives in [place] and visiting her daughter here Midline in place RN [facility] at bedside SNF vs Home Health for IV antibiotics Dread at bedside . Plan discussed with: Patient My Orders Orders - BETO CRISTOBAL MD Procedure Category Date Status Time D5w/Lactated PHA 12/18/24 In Process Ringer... W/Potassium 10:30 Complete Blood Count LAB 12/20/24 Verified 05:00 Complete Blood Count LAB 12/21/24 Verified 05:00 Comprehensive LAB 12/20/24 Verified Metabolic Panel 05:00 Comprehensive LAB 12/28/24 Verified Metabolic Panel 05:00 Potassium Chloride PHA 12/19/24 Logged (Potassium Chloride). 09:30 Date of Service: Dec 19, 2024 Billing Provider: BETO CRISTOBAL MD Common Visit Codes: [id number] INP/OBS CARE(HIGH) BETO CRISTOBAL MD Dec 19, 2024 09:35
[2024-12-19] MEDS: LOPERAMIDE HCL 2 MG CAP/TAB PO ONE (12:01)
[2024-12-19] MEDS: GOLYTELY 4L KIT PO ONE (12:02)
[2024-12-19] MEDS: POTASSIUM CHLORIDE 40 MEQ, LIDOCAINE 1% (LOCAL ANESTH.) 4 ML in SODIUM CHL 0.9% 250 ML IV ONE (15:02)
--- NOTE | 2024-12-19 21:12 | DVHPN2 ---
Progress Note - Dictate Date Seen: Dec 19, 2024 Medical Necessity Reason Pt with a Central, PICC or Fol: Yes Subjective I was requested by Dr. Brandt Muhammad to arrange a possible colonoscopy tomorrow Patient's was requesting as the patient continue to complain of diarrhea She has had a colonoscopy a couple of years ago in [place] which she believes was negative I attempted to give her a bowel prep today however patient was too nauseous and could not tolerate the bowel prep EGD showed moderate gastritis with some acid reflux. Biopsies are pending Stool for WBC is negative which points against any active colitis vital signs Vital Sign Date Time Temp Pulse Resp B/P (MAP) Pulse Ox O2 Delivery O2 Flow Rate FiO2 12/19/24 18:05 76 18 160/66 12/19/24 17:24 97.9 95 97.9 12/19/24 08:00 Room Air* 0 21 Total Intake and Output 12/18/24 12/18/24 12/19/24 15:00 23:00 07:00 Intake Total 350 ml 1100 ml 900 ml Output Total 1 ml Balance 350 ml 1100 ml 899 ml medications Current Medications Medications Dose Ordered Sig/Jimmy Route Start Time Stop Time Status Last Admin Dose Admin Ondansetron HCl 4 mg Q4HP PRN IV 12/13/24 15:45 12/19/24 12:01 4 MG Docusate Sodium 100 mg BIDPRN PRN PO 12/13/24 15:45 Morphine Sulfate 2 mg Q4HPRN PRN IV 12/13/24 15:45 12/19/24 18:05 2 MG Enoxaparin Sodium 40 mg DAILY SC 12/13/24 15:45 12/19/24 09:23 40 MG Diagnostic Test (Pha) 1 strip ACHS 12/13/24 17:00 12/19/24 21:07 1 STRIP Insulin Human Regular HS SC 12/13/24 22:00 Insulin Human Regular AC SC 12/13/24 17:00 12/19/24 12:55 3 UNITS Dextrose 50 ml UD PRN IV 12/13/24 15:45 Nitroglycerin 0.4 mg Q5MINP PRN SL 12/13/24 15:45 Ceftriaxone Sodium 50 ml @ 100 mls/hr DAILY@09 IV 12/15/24 09:00 12/19/24 09:14 100 MLS/HR Metronidazole 100 ml @ 100 mls/hr Q8HR IV 12/14/24 14:00 12/19/24 20:51 100 MLS/HR Mupirocin 1 applic BID EACHNOSTRI 12/15/24 22:00 12/20/24 21:59 12/19/24 21:07 1 APPLIC Linezolid 300 ml @ 150 mls/hr Q12HR IV 12/16/24 10:00 12/19/24 09:20 150 MLS/HR Diphenhydramine HCl 25 mg Q6HP PRN IV 12/16/24 10:15 12/19/24 15:16 25 MG Benazepril HCl 10 mg DAILY PO 12/18/24 10:00 12/19/24 09:22 10 MG Amlodipine Besylate 5 mg DAILY PO 12/18/24 10:00 UNV Potassium Chloride 40 meq/ Dextrose/Lactated Ringer's 1,020 ml @ 100 mls/hr [id number] IV 12/18/24 10:30 12/19/24 17:06 100 MLS/HR Loperamide HCl 2 mg PRN PRN PO 12/19/24 09:45 objective General Appearance: Alert, Oriented X3, Cooperative, No acute distress HEENT: Atraumatic, PERRLA, EOMI, Mucous membr. moist/pink Respiratory: Clear to auscultation, Normal air movement Cardiovascular: Regular rate, Normal S1, Normal S2, No murmurs Abdominal: Normal bowel sounds, Soft, No tenderness, No hepatospenomegaly, No masses Extremities: No clubbing, No cyanosis, No edema, Normal pulses, No tenderness/swelling Skin: No rashes, No breakdown, No significant lesion Neuro: Normal gait, Normal speech, Strength at 5/5 X4 ext, Normal tone, Sensation intact, Cranial nerves 3-12 NL Psych/Mental Status: Mental status NL, Mood NL laboratory and microbiology Laboratory Tests 12/19/24 05:35 Test 12/19/24 05:35 Range/Units Serum Glucose 143 H 74-106 mg/dL Problems(with codes): (1) Hiatal hernia with GERD and esophagitis (2) Nausea vomiting and diarrhea (3) Viral gastroenteritis (4) UTI (urinary tract infection) Prognosis PLAN Patient could not tolerate the bowel prep for the colonoscopy At this time we will continue supportive care and treatment for her gastritis and GERD I will give her Zofran as needed for nausea I am going to discontinue her IV Flagyl Patient can have an outpatient elective colonoscopy once medically stabilized If nausea vomiting persists consider CT scan of the head and neck to rule out any neurological issue Once again thank you for allowing me to participate care the patient I will follow up patient with you Dietary Evaluation Review Comments: 1) Encourage optimal PO intake 2) Advance to 60g CCHO diet when medically feasible 3) Refer to outpatient RD/CDCES for weight management 4) Follow-up with gastroenterology 5) Continue to monitor I&O, labs, and skin integrity Expected Outcomes/Goals: 1) appetite and labs to improve 2) diet to advance 3) gradual wt loss 4) f/u in 3-5 days Plan discussed with: Other (Nurse and Dr Brandt Muhammad) KERRY TOMAS MD Dec 19, 2024 21:12
[2024-12-19] MEDS: LOPERAMIDE HCL 2 MG CAP/TAB PO PRN (21:17)
[2024-12-19] MEDS: SUCRALFATE 1 GM/10 ML ORAL SUSP PO SCH (23:58)
[2024-12-19] MEDS: PANTOPRAZOLE 40 MG/10 ML VIAL INJ IV SCH (23:58)
[2024-12-20] VITALS (8 sets, daily range): BP systolic 131–156; BP diastolic 55–81; PULSE 76–97; RESP 16–20; TEMP 97.6–98.6; O2SAT 93–97
[2024-12-20] MEDS: MAGNESIUM CITRATE SOLUTION 300 ML BTL PO ONE (06:00)
[2024-12-20] MEDS: GOLYTELY 4L KIT PO ONE (06:00)
[2024-12-20 06:55] LABS: Hematocrit 33.6 % (36.0-46.0); Hemoglobin 11.3 g/dL (12.2-16.2); Mean Corpuscular Hemoglobin 30.0 pg (28.0-32.0); Mean Corpuscular Volume 89.1 fL (80.0-100.0); Nucleated Red Blood Cells % 0.0 %
[2024-12-20 07:04] LABS: Alanine Aminotransferase 14 U/L (7-40); Alkaline Phosphatase 53 U/L (46-116); Anion Gap 12 (5-15); Calcium 9.3 mg/dL (8.7-10.4); Carbon Dioxide 22 mmol/L (20-31); Potassium 3.5 mmol/L (3.5-5.1); Sodium 144 mmol/L (136-145)
[2024-12-20 07:06] LABS: Bilirubin, Total 0.4 mg/dL (0.2-1.0)
[2024-12-20 07:12] LABS: Albumin 3.0 g/dL (3.2-4.8); BUN/Creatinine Ratio 9.3 (10.0-20.0); Blood Urea Nitrogen < 5 mg/dL (9-23); Chloride 110 mmol/L (98-107); Glucose 130 mg/dL (74-106); Total Protein 4.7 g/dL (5.7-8.2)
--- NOTE | 2024-12-20 08:38 | DVHPN2 ---
Reviewed: Care Plan, H&P, Labs, Medications, Previous Orders, Radiology Changes from previous H/P or p: No Changes Eyes: No Pain, No Vision change, No Conjunctivae inflammation, No Eyelid inflammation, No Other, No Redness ENT: No Ear pain, No Ear discharge, No Nose pain, No Nose discharge, No Nose congestion, No Mouth pain, No Mouth swelling, No Throat pain, No Throat swelling, No Other Cardiovascular: No Chest Pain, No Palpitations, No Orthopnea, No Paroxysmal Noc. Dyspnea, No Edema, No Lt Headedness, No Other Respiratory: No Cough, No Dry, No Shortness of breath, No SOB with excertion, No Wheezing, No Hemoptysis, No Pleuritic Pain, No Sputum, No Other Gastrointestinal: Nausea, Vomiting, Abdominal Pain, Diarrhea; No Constipation, No Melena, No Hematochezia, No Other Genitourinary: No Dysuria, No Frequency, No Incontinence, No Hematuria, No Retention, No Other Musculoskeletal: No other, No neck pain, No shoulder pain, No arm pain, No back pain, No hand pain, No leg pain, No foot pain Skin: No Rash, No Lesions, No Jaundice, No Bruising, No Other Objective Vitals Vital Signs Date Time Temp Pulse Resp B/P (MAP) Pulse Ox O2 Delivery O2 Flow Rate FiO2 12/20/24 05:00 97.6 90 19 156/70 (98) 93 97.6 12/19/24 20:00 Room Air* 0 21 Intake/Output Intake and Output 12/20/24 07:00 Intake Total 1900 ml Output Total 3 ml Balance 1897 ml Intake Oral 1250 ml IV Total 650 ml Stool Total 3 ml # Voids 6 General Appearance: Alert, Oriented X3, Cooperative, No acute distress, mild distress, moderate distress, severe distress, Other Lungs: Clear to auscultation, Normal air movement, Other Cardiovascular: Regular rate, Normal S1, Normal S2, No murmurs, Gallops, Rubs, Other Abdomen: Normal bowel sounds, Soft, No tenderness, No hepatospenomegaly, No masses, Other Medications Current Medications Medications Dose Ordered Sig/Jimmy Route Start Time Stop Time Status Last Admin Dose Admin Ondansetron HCl 4 mg Q4HP PRN IV 12/13/24 15:45 12/19/24 12:01 4 MG Docusate Sodium 100 mg BIDPRN PRN PO 12/13/24 15:45 Morphine Sulfate 2 mg Q4HPRN PRN IV 12/13/24 15:45 12/19/24 18:05 2 MG Enoxaparin Sodium 40 mg DAILY SC 12/13/24 15:45 12/19/24 09:23 40 MG Diagnostic Test (Pha) 1 strip ACHS 12/13/24 17:00 12/20/24 07:00 1 STRIP Insulin Human Regular HS SC 12/13/24 22:00 Insulin Human Regular AC SC 12/13/24 17:00 12/20/24 06:16 2 UNITS Dextrose 50 ml UD PRN IV 12/13/24 15:45 Nitroglycerin 0.4 mg Q5MINP PRN SL 12/13/24 15:45 Ceftriaxone Sodium 50 ml @ 100 mls/hr DAILY@09 IV 12/15/24 09:00 12/19/24 09:14 100 MLS/HR Mupirocin 1 applic BID EACHNOSTRI 12/15/24 22:00 12/20/24 21:59 12/19/24 21:07 1 APPLIC Linezolid 300 ml @ 150 mls/hr Q12HR IV 12/16/24 10:00 12/19/24 23:58 150 MLS/HR Diphenhydramine HCl 25 mg Q6HP PRN IV 12/16/24 10:15 12/19/24 21:18 25 MG Benazepril HCl 10 mg DAILY PO 12/18/24 10:00 12/19/24 09:22 10 MG Amlodipine Besylate 5 mg DAILY PO 12/18/24 10:00 UNV Potassium Chloride 40 meq/ Dextrose/Lactated Ringer's 1,020 ml @ 100 mls/hr [id number] IV 12/18/24 10:30 12/19/24 17:06 100 MLS/HR Loperamide HCl 2 mg PRN PRN PO 12/19/24 09:45 12/19/24 21:17 2 MG Pantoprazole Sodium 40 mg BID IV 12/19/24 22:00 12/19/24 23:58 40 MG Sucralfate 1 gm QID@0600,1130,1700,2200 PO 12/19/24 22:00 12/20/24 06:15 1 GM Laboratory Results Laboratory Tests 12/20/24 06:02 Chemistry Test 12/20/24 06:02 Albumin 3.0 g/dL (3.2-4.8) L Calcium Level 9.3 mg/dL (8.7-10.4) Total Protein 4.7 g/dL (5.7-8.2) L LFT Test 12/20/24 06:02 Alanine Aminotransferase (ALT) 14 U/L (7-40) Alkaline Phosphatase 53 U/L (46-116) Aspartate Amino Transferase (AST) 28 U/L (13-40) Total Bilirubin 0.4 mg/dL (0.2-1.0) Urinalysis Test 12/13/24 11:19 Urine Color Light-orange (Yellow) Urine Clarity Ex.turbid (Clear) Urine pH 6.0 (5.0-9.0) Urine Specific [place] 1.014 (1.001-1.035) Urine Protein 1+ (Negative) H Urine Ketones 1+ (Negative) H Urine Blood 2+ /uL (Negative) H Urine Nitrite Negative (Negative) Urine Bilirubin Negative (Negative) Urine Urobilinogen Normal mg/dL (Negative) Urine Leukocyte Esterase 3+ /uL (Negative) Urine RBC 58 /hpf (0 - 4) Urine WBC Clumps Present /hpf (None Seen) Urine Microscopic WBC 1231 /HPF (0-5) H Urine Squamous Epithelial Cells Few /hpf (<5) Urine Bacteria None seen /hpf (None Seen) Urine Mucus Few (None Seen) Urine Glucose Normal mg/dL (Normal) Microbiology Microbiology Date/Time Source Procedure Growth Status 12/16/24 01:30 Urine - Midstream Clean Catch Urine Culture - Final Complete 12/14/24 13:11 Blood Blood Culture - Final NO GROWTH AFTER 5 DAYS OF INCUBATION. Complete 12/14/24 11:39 Nose MRSA Screen - Final Methicillin Resistant S.aureus Complete 12/14/24 11:19 Stool Stool Culture - Final Complete 12/14/24 11:19 Stool Shiga Toxin I & II - Final Complete 12/14/24 11:19 Stool Clostridium difficile Toxin Assay - Final Complete Labs and/or images reviewed: Labs reviewed by me, Image(s) reviewed by me Assessment/Plan Assessment/Plan Sepsis secondary to urinary tract infection: Blood cultures negative, urine cultures growing E coli and E faecalis, continue Rocephin, add Zyvox 600 mg IV q.12h for E faecalis Acute abdominal pain with the nausea vomiting and diarrhea, Rocephin Flagyl discontinued by Dr. Izaiah Magana secondary to persistent nausea CT abdomen pelvis without contrast negative, GI consult by Dr. Izaiah Magana, Shiga negative C diff negative, possible viral gastroenteritis, GRADE B ESOPHAGITIS AND MODERATE GASTRITIS BY EGD BY DR. Izaiah MAGANA 12/17/2024 Colonoscopy could not be done as the patient was unable to keep GoLYTELY down Recent history of norovirus infection treated with amoxicillin at [facility] Diverticulosis without diverticulitis Diabetes type 2 Intractable diarrhea: Imodium p.r.n. Acute Hypokalemia: Replace potassium Acute dehydration: IV fluids MRSA in the nose: Bactroban nasal ointment History of lumbar spine surgery Time spent 50 minutes Advanced care planning time 20 minutes Patient is full code Patient Lives in [place] and visiting her daughter here Midline in place SURESH Ralph at bedside SNF vs Home Health for IV antibiotics Dread at bedside . Plan discussed with: Patient My Orders Orders - BETO CRISTOBAL MD Procedure Category Date Status Time Loperamide Capsule PHA 12/19/24 In Process (Imodium Capsule) 09:[address] 12/20/24 Verified 08:36 Date of Service: Dec 20, 2024 Billing Provider: BETO CRISTOBAL MD Common Visit Codes: [id number] CARE 30-74 MIN BETO CRISTOBAL MD Dec 20, 2024 08:38
--- NOTE | 2024-12-20 09:20 | DVH ---
CLINICAL HISTORY: Persistent nausea and vomiting TECHNIQUE: Helical scanning was performed of the head from the skull base to the vertex. Multiplanar reconstructions were performed. This exam was performed according to our departmental dose optimizat ion program. Up-to-date CT equipment and radiation dose reduction techniques are utilized as appropri ate. CTDI 55.4 DLP 965.1 COMPARISON: None FINDINGS: There is no evidence for acute intracranial hemorrhage, acute ischemic changes, mass, mass effect, or extra-axial fluid collection. There is no hydrocephalus or midline shift. There is no effacement of the cerebral sulci and basal subarachnoid cisterns. The mensah-white matter differentiation is well nas ntained. The imaged paranasal sinuses are clear. There has been bilateral cataract extraction. IMPRESSION: NO ACUTE INTRACRANIAL ABNORMALITY SEEN.
--- NOTE | 2024-12-20 13:23 | DVHPN2 ---
Progress Note - Dictate Date Seen: Dec 20, 2024 Medical Necessity Reason Pt with a Central, PICC or Fol: Yes Subjective Colonoscopy was canceled today as the patient could not tolerate her bowel prep She has had a colonoscopy a couple of years ago in [place] which she believes was negative Patient is still having some nausea and vomiting after each EGD showed moderate gastritis with some acid reflux. Biopsies are pending Stool for WBC is negative which points against any active colitis vital signs Vital Sign Date Time Temp Pulse Resp B/P (MAP) Pulse Ox O2 Delivery O2 Flow Rate FiO2 12/20/24 10:27 147/74 12/20/24 08:59 98.3 78 20 95 98.3 12/20/24 08:00 Room Air* 0 21 Total Intake and Output 12/19/24 12/19/24 12/20/24 15:00 23:00 07:00 Intake Total 350 ml 850 ml 700 ml Output Total 3 ml Balance 350 ml 847 ml 700 ml medications Current Medications Medications Dose Ordered Sig/Jimmy Route Start Time Stop Time Status Last Admin Dose Admin Ondansetron HCl 4 mg Q4HP PRN IV 12/13/24 15:45 12/19/24 12:01 4 MG Docusate Sodium 100 mg BIDPRN PRN PO 12/13/24 15:45 Morphine Sulfate 2 mg Q4HPRN PRN IV 12/13/24 15:45 12/19/24 18:05 2 MG Enoxaparin Sodium 40 mg DAILY SC 12/13/24 15:45 12/20/24 10:26 40 MG Diagnostic Test (Pha) 1 strip ACHS 12/13/24 17:00 12/20/24 07:00 1 STRIP Insulin Human Regular HS SC 12/13/24 22:00 Insulin Human Regular AC SC 12/13/24 17:00 12/20/24 06:16 2 UNITS Dextrose 50 ml UD PRN IV 12/13/24 15:45 Nitroglycerin 0.4 mg Q5MINP PRN SL 12/13/24 15:45 Ceftriaxone Sodium 50 ml @ 100 mls/hr DAILY@09 IV 12/15/24 09:00 12/20/24 09:00 100 MLS/HR Mupirocin 1 applic BID EACHNOSTRI 12/15/24 22:00 12/20/24 21:59 12/20/24 10:25 1 APPLIC Linezolid 300 ml @ 150 mls/hr Q12HR IV 12/16/24 10:00 12/20/24 10:27 150 MLS/HR Diphenhydramine HCl 25 mg Q6HP PRN IV 12/16/24 10:15 12/20/24 10:38 25 MG Benazepril HCl 10 mg DAILY PO 12/18/24 10:00 12/20/24 10:27 10 MG Amlodipine Besylate 5 mg DAILY PO 12/18/24 10:00 UNV Potassium Chloride 40 meq/ Dextrose/Lactated Ringer's 1,020 ml @ 100 mls/hr [id number] IV 12/18/24 10:30 12/19/24 17:06 100 MLS/HR Loperamide HCl 2 mg PRN PRN PO 12/19/24 09:45 12/20/24 13:05 2 MG Pantoprazole Sodium 40 mg BID IV 12/19/24 22:00 12/20/24 10:25 40 MG Sucralfate 1 gm QID@0600,1130,1700,2200 PO 12/19/24 22:00 12/20/24 13:05 1 GM Metoclopramide HCl 5 mg Q8HR IV 12/20/24 14:00 UNV objective General Appearance: Alert, Oriented X3, Cooperative, No acute distress HEENT: Atraumatic, PERRLA, EOMI, Mucous membr. moist/pink Respiratory: Clear to auscultation, Normal air movement Cardiovascular: Regular rate, Normal S1, Normal S2, No murmurs Abdominal: Normal bowel sounds, Soft, No tenderness, No hepatospenomegaly, No masses Extremities: No clubbing, No cyanosis, No edema, Normal pulses, No tenderness/swelling Skin: No rashes, No breakdown, No significant lesion Neuro: Normal gait, Normal speech, Strength at 5/5 X4 ext, Normal tone, Sensation intact, Cranial nerves 3-12 NL Psych/Mental Status: Mental status NL, Mood NL laboratory and microbiology Laboratory Tests 12/20/24 06:02 Test 12/20/24 06:02 Range/Units Serum Glucose 130 H 74-106 mg/dL Problems(with codes): (1) Hiatal hernia with GERD and esophagitis (2) Nausea vomiting and diarrhea (3) Viral gastroenteritis (4) UTI (urinary tract infection) (5) Hypokalemia Prognosis PLAN At this time we will continue supportive care and treatment for her gastritis and GERD I will give her Zofran as needed for nausea; IV Reglan 5 mg q.8 hours I am going to discontinue her IV Flagyl Patient can have an outpatient elective colonoscopy once medically stabilized CT head was negative Anxiety management Once again thank you for allowing me to participate care the patient I will follow up patient with you Dietary Evaluation Review Comments: 1) Encourage optimal PO intake 2) Advance to 60g CCHO diet when medically feasible 3) Refer to outpatient RD/CD[facility] for weight management 4) Follow-up with gastroenterology 5) Continue to monitor I&O, labs, and skin integrity Expected Outcomes/Goals: 1) appetite and labs to improve 2) diet to advance 3) gradual wt loss 4) f/u in 3-5 days Plan discussed with: Patient, Other (Nurse) KERRY TOMAS MD Dec 20, 2024 13:23
[2024-12-20] MEDS: METOCLOPRAMIDE HCL 5MG/ml INJ 2ml VIAL IV SCH (14:40)
[2024-12-21] VITALS (8 sets, daily range): BP systolic 133–156; BP diastolic 63–86; PULSE 77–96; RESP 15–18; TEMP 97.6–98.3; O2SAT 92–95
[2024-12-21 07:29] LABS: Hematocrit 36.4 % (36.0-46.0); Hemoglobin 12.2 g/dL (12.2-16.2); Mean Corpuscular Hemoglobin 29.9 pg (28.0-32.0); Mean Corpuscular Volume 89.3 fL (80.0-100.0); Nucleated Red Blood Cells % 0.1 %
--- NOTE | 2024-12-21 09:32 | DVHPN2 ---
Reviewed: Care Plan, H&P, Labs, Medications, Previous Orders, Radiology Changes from previous H/P or p: No Changes Eyes: No Pain, No Vision change, No Conjunctivae inflammation, No Eyelid inflammation, No Other, No Redness ENT: No Ear pain, No Ear discharge, No Nose pain, No Nose discharge, No Nose congestion, No Mouth pain, No Mouth swelling, No Throat pain, No Throat swelling, No Other Cardiovascular: No Chest Pain, No Palpitations, No Orthopnea, No Paroxysmal Noc. Dyspnea, No Edema, No Lt Headedness, No Other Respiratory: No Cough, No Dry, No Shortness of breath, No SOB with excertion, No Wheezing, No Hemoptysis, No Pleuritic Pain, No Sputum, No Other Gastrointestinal: Nausea, Vomiting, Abdominal Pain, Diarrhea; No Constipation, No Melena, No Hematochezia, No Other Genitourinary: No Dysuria, No Frequency, No Incontinence, No Hematuria, No Retention, No Other Musculoskeletal: No other, No neck pain, No shoulder pain, No arm pain, No back pain, No hand pain, No leg pain, No foot pain Skin: No Rash, No Lesions, No Jaundice, No Bruising, No Other Objective Vitals Vital Signs Date Time Temp Pulse Resp B/P (MAP) Pulse Ox O2 Delivery O2 Flow Rate FiO2 12/21/24 08:16 98.3 82 15 147/86 (106) 92 98.3 12/20/24 20:00 Room Air* 0 21 Intake/Output Intake and Output 12/21/24 07:00 Intake Total 1140 ml Balance 1140 ml Intake Oral 340 ml IV Total 800 ml # Voids 6 # Bowel Movements 5 General Appearance: Alert, Oriented X3, Cooperative, No acute distress, mild distress, moderate distress, severe distress, Other Lungs: Clear to auscultation, Normal air movement, Other Cardiovascular: Regular rate, Normal S1, Normal S2, No murmurs, Gallops, Rubs, Other Abdomen: Normal bowel sounds, Soft, No tenderness, No hepatospenomegaly, No masses, Other Medications Current Medications Medications Dose Ordered Sig/Jimmy Route Start Time Stop Time Status Last Admin Dose Admin Ondansetron HCl 4 mg Q4HP PRN IV 12/13/24 15:45 12/20/24 18:24 4 MG Docusate Sodium 100 mg BIDPRN PRN PO 12/13/24 15:45 Morphine Sulfate 2 mg Q4HPRN PRN IV 12/13/24 15:45 12/20/24 18:26 2 MG Enoxaparin Sodium 40 mg DAILY SC 12/13/24 15:45 12/20/24 10:26 40 MG Diagnostic Test (Pha) 1 strip ACHS 12/13/24 17:00 12/21/24 06:20 1 STRIP Insulin Human Regular HS SC 12/13/24 22:00 Insulin Human Regular AC SC 12/13/24 17:00 12/21/24 06:23 3 UNITS Dextrose 50 ml UD PRN IV 12/13/24 15:45 Nitroglycerin 0.4 mg Q5MINP PRN SL 12/13/24 15:45 Ceftriaxone Sodium 50 ml @ 100 mls/hr DAILY@09 IV 12/15/24 09:00 12/20/24 09:00 100 MLS/HR Linezolid 300 ml @ 150 mls/hr Q12HR IV 12/16/24 10:00 12/20/24 21:27 150 MLS/HR Diphenhydramine HCl 25 mg Q6HP PRN IV 12/16/24 10:15 12/21/24 05:38 25 MG Benazepril HCl 10 mg DAILY PO 12/18/24 10:00 12/20/24 10:27 10 MG Amlodipine Besylate 5 mg DAILY PO 12/18/24 10:00 UNV Potassium Chloride 40 meq/ Dextrose/Lactated Ringer's 1,020 ml @ 100 mls/hr [id number] IV 12/18/24 10:30 12/21/24 03:43 100 MLS/HR Loperamide HCl 2 mg PRN PRN PO 12/19/24 09:45 12/20/24 18:23 2 MG Pantoprazole Sodium 40 mg BID IV 12/19/24 22:00 12/20/24 21:27 40 MG Sucralfate 1 gm QID@0600,1130,1700,2200 PO 12/19/24 22:00 12/21/24 05:38 1 GM Metoclopramide HCl 5 mg Q8HR IV 12/20/24 14:00 12/21/24 05:38 5 MG Laboratory Results Laboratory Tests 12/20/24 06:02 12/21/24 06:19 Urinalysis Test 12/13/24 11:19 Urine Color Light-orange (Yellow) Urine Clarity Ex.turbid (Clear) Urine pH 6.0 (5.0-9.0) Urine Specific [place] 1.014 (1.001-1.035) Urine Protein 1+ (Negative) H Urine Ketones 1+ (Negative) H Urine Blood 2+ /uL (Negative) H Urine Nitrite Negative (Negative) Urine Bilirubin Negative (Negative) Urine Urobilinogen Normal mg/dL (Negative) Urine Leukocyte Esterase 3+ /uL (Negative) Urine RBC 58 /hpf (0 - 4) Urine WBC Clumps Present /hpf (None Seen) Urine Microscopic WBC 1231 /HPF (0-5) H Urine Squamous Epithelial Cells Few /hpf (<5) Urine Bacteria None seen /hpf (None Seen) Urine Mucus Few (None Seen) Urine Glucose Normal mg/dL (Normal) Microbiology Microbiology Date/Time Source Procedure Growth Status 12/16/24 01:30 Urine - Midstream Clean Catch Urine Culture - Final Complete 12/14/24 13:11 Blood Blood Culture - Final NO GROWTH AFTER 5 DAYS OF INCUBATION. Complete 12/14/24 11:39 Nose MRSA Screen - Final Methicillin Resistant S.aureus Complete 12/14/24 11:19 Stool Stool Culture - Final Complete 12/14/24 11:19 Stool Shiga Toxin I & II - Final Complete 12/14/24 11:19 Stool Clostridium difficile Toxin Assay - Final Complete Labs and/or images reviewed: Labs reviewed by me, Image(s) reviewed by me Assessment/Plan Assessment/Plan Sepsis secondary to urinary tract infection: Blood cultures negative, urine cultures growing E coli and E faecalis, continue Rocephin, add Zyvox 600 mg IV q.12h for E faecalis Acute abdominal pain with the nausea vomiting and diarrhea, Rocephin Flagyl discontinued by Dr. Izaiah Magana secondary to persistent nausea CT abdomen pelvis without contrast negative, GI consult by Dr. Izaiah Magana, Shiga negative C diff negative, possible viral gastroenteritis, GRADE B ESOPHAGITIS AND MODERATE GASTRITIS BY EGD BY DR. Izaiah MAGANA 12/17/2024 Colonoscopy could not be done as the patient was unable to keep GoLYTELY down Recent history of norovirus infection treated with amoxicillin at [facility] Diverticulosis without diverticulitis Diabetes type 2 Intractable diarrhea: Imodium p.r.n. Acute Hypokalemia: Replace potassium Acute dehydration: IV fluids MRSA in the nose: Bactroban nasal ointment History of lumbar spine surgery Time spent 50 minutes Advanced care planning time 20 minutes Patient is full code Patient Lives in [place] and visiting her daughter here Midline in place SURESH Ralph at bedside Physical therapy ordered SNF vs Home Health for IV antibiotics [facility] at bedside . Plan discussed with: Patient Date of Service: Dec 21, 2024 Billing Provider: BETO CRISTOBAL MD Common Visit Codes: [id number] INP/OBS CARE(HIGH) BETO CRISTOBAL MD Dec 21, 2024 09:32
[2024-12-22] VITALS (8 sets, daily range): BP systolic 129–154; BP diastolic 75–80; PULSE 78–91; RESP 16–18; TEMP 97.6–98.7; O2SAT 93–97
[2024-12-22 08:06] LABS: Hematocrit 33.5 % (36.0-46.0); Hemoglobin 11.3 g/dL (12.2-16.2); Mean Corpuscular Hemoglobin 30.3 pg (28.0-32.0); Mean Corpuscular Volume 89.4 fL (80.0-100.0); Nucleated Red Blood Cells % 0.2 %
[2024-12-22 08:25] LABS: Alanine Aminotransferase 14 U/L (7-40); Alkaline Phosphatase 52 U/L (46-116); Anion Gap 12 (5-15); Bilirubin, Total 0.4 mg/dL (0.2-1.0); Calcium 9.7 mg/dL (8.7-10.4); Carbon Dioxide 24 mmol/L (20-31); Potassium 3.5 mmol/L (3.5-5.1); Sodium 143 mmol/L (136-145)
[2024-12-22 08:27] LABS: Albumin 3.0 g/dL (3.2-4.8); BUN/Creatinine Ratio 8.2 (10.0-20.0); Blood Urea Nitrogen < 5 mg/dL (9-23); Chloride 107 mmol/L (98-107); Glucose 156 mg/dL (74-106); Total Protein 4.6 g/dL (5.7-8.2)
--- NOTE | 2024-12-22 10:04 | DVHPN2 ---
Reviewed: Care Plan, H&P, Labs, Medications, Previous Orders, Radiology Changes from previous H/P or p: No Changes Eyes: No Pain, No Vision change, No Conjunctivae inflammation, No Eyelid inflammation, No Other, No Redness ENT: No Ear pain, No Ear discharge, No Nose pain, No Nose discharge, No Nose congestion, No Mouth pain, No Mouth swelling, No Throat pain, No Throat swelling, No Other Cardiovascular: No Chest Pain, No Palpitations, No Orthopnea, No Paroxysmal Noc. Dyspnea, No Edema, No Lt Headedness, No Other Respiratory: No Cough, No Dry, No Shortness of breath, No SOB with excertion, No Wheezing, No Hemoptysis, No Pleuritic Pain, No Sputum, No Other Gastrointestinal: Nausea, Vomiting, Abdominal Pain, Diarrhea; No Constipation, No Melena, No Hematochezia, No Other Genitourinary: No Dysuria, No Frequency, No Incontinence, No Hematuria, No Retention, No Other Musculoskeletal: No other, No neck pain, No shoulder pain, No arm pain, No back pain, No hand pain, No leg pain, No foot pain Skin: No Rash, No Lesions, No Jaundice, No Bruising, No Other Objective Vitals Vital Signs Date Time Temp Pulse Resp B/P (MAP) Pulse Ox O2 Delivery O2 Flow Rate FiO2 12/22/24 09:29 148/78 12/22/24 08:55 97.8 78 17 93 97.8 12/21/24 20:00 Room Air* 0 21 Intake/Output Intake and Output 12/22/24 07:00 Intake Total 1750 ml Output Total 600 ml Balance 1150 ml Intake Oral 950 ml IV Total 800 ml Output Urine Total 600 ml # Voids 2 # Bowel Movements 4 General Appearance: Alert, Oriented X3, Cooperative, No acute distress, mild distress, moderate distress, severe distress, Other Lungs: Clear to auscultation, Normal air movement, Other Cardiovascular: Regular rate, Normal S1, Normal S2, No murmurs, Gallops, Rubs, Other Abdomen: Normal bowel sounds, Soft, No tenderness, No hepatospenomegaly, No masses, Other Medications Current Medications Medications Dose Ordered Sig/Jimmy Route Start Time Stop Time Status Last Admin Dose Admin Ondansetron HCl 4 mg Q4HP PRN IV 12/13/24 15:45 12/20/24 18:24 4 MG Docusate Sodium 100 mg BIDPRN PRN PO 12/13/24 15:45 Morphine Sulfate 2 mg Q4HPRN PRN IV 12/13/24 15:45 12/21/24 23:08 2 MG Enoxaparin Sodium 40 mg DAILY SC 12/13/24 15:45 12/22/24 09:29 40 MG Diagnostic Test (Pha) 1 strip ACHS 12/13/24 17:00 12/22/24 07:00 1 STRIP Insulin Human Regular HS SC 12/13/24 22:00 Insulin Human Regular AC SC 12/13/24 17:00 12/21/24 16:58 2 UNITS Dextrose 50 ml UD PRN IV 12/13/24 15:45 Nitroglycerin 0.4 mg Q5MINP PRN SL 12/13/24 15:45 Ceftriaxone Sodium 50 ml @ 100 mls/hr DAILY@09 IV 12/15/24 09:00 12/22/24 09:29 100 MLS/HR Linezolid 300 ml @ 150 mls/hr Q12HR IV 12/16/24 10:00 12/22/24 09:30 150 MLS/HR Diphenhydramine HCl 25 mg Q6HP PRN IV 12/16/24 10:15 12/21/24 15:42 25 MG Benazepril HCl 10 mg DAILY PO 12/18/24 10:00 12/22/24 09:29 10 MG Amlodipine Besylate 5 mg DAILY PO 12/18/24 10:00 UNV Potassium Chloride 40 meq/ Dextrose/Lactated Ringer's 1,020 ml @ 100 mls/hr [id number] IV 12/18/24 10:30 12/22/24 06:08 100 MLS/HR Loperamide HCl 2 mg PRN PRN PO 12/19/24 09:45 12/21/24 17:19 2 MG Pantoprazole Sodium 40 mg BID IV 12/19/24 22:00 12/22/24 09:29 40 MG Sucralfate 1 gm QID@0600,1130,1700,2200 PO 12/19/24 22:00 12/21/24 16:30 1 GM Metoclopramide HCl 5 mg Q8HR IV 12/20/24 14:00 12/22/24 06:08 5 MG Laboratory Results Laboratory Tests 12/22/24 06:30 Chemistry Test 12/22/24 06:30 Albumin 3.0 g/dL (3.2-4.8) L Calcium Level 9.7 mg/dL (8.7-10.4) Total Protein 4.6 g/dL (5.7-8.2) L LFT Test 12/22/24 06:30 Alanine Aminotransferase (ALT) 14 U/L (7-40) Alkaline Phosphatase 52 U/L (46-116) Aspartate Amino Transferase (AST) 33 U/L (13-40) Total Bilirubin 0.4 mg/dL (0.2-1.0) Urinalysis Test 12/13/24 11:19 Urine Color Light-orange (Yellow) Urine Clarity Ex.turbid (Clear) Urine pH 6.0 (5.0-9.0) Urine Specific [place] 1.014 (1.001-1.035) Urine Protein 1+ (Negative) H Urine Ketones 1+ (Negative) H Urine Blood 2+ /uL (Negative) H Urine Nitrite Negative (Negative) Urine Bilirubin Negative (Negative) Urine Urobilinogen Normal mg/dL (Negative) Urine Leukocyte Esterase 3+ /uL (Negative) Urine RBC 58 /hpf (0 - 4) Urine WBC Clumps Present /hpf (None Seen) Urine Microscopic WBC 1231 /HPF (0-5) H Urine Squamous Epithelial Cells Few /hpf (<5) Urine Bacteria None seen /hpf (None Seen) Urine Mucus Few (None Seen) Urine Glucose Normal mg/dL (Normal) Microbiology Microbiology Date/Time Source Procedure Growth Status 12/16/24 01:30 Urine - Midstream Clean Catch Urine Culture - Final Complete 12/14/24 13:11 Blood Blood Culture - Final NO GROWTH AFTER 5 DAYS OF INCUBATION. Complete 12/14/24 11:39 Nose MRSA Screen - Final Methicillin Resistant S.aureus Complete 12/14/24 11:19 Stool Stool Culture - Final Complete 12/14/24 11:19 Stool Shiga Toxin I & II - Final Complete 12/14/24 11:19 Stool Clostridium difficile Toxin Assay - Final Complete Labs and/or images reviewed: Labs reviewed by me, Image(s) reviewed by me Assessment/Plan Assessment/Plan Sepsis secondary to urinary tract infection: Blood cultures negative, urine cultures growing E coli and E faecalis, continue Rocephin, add Zyvox 600 mg IV q.12h for E faecalis Acute abdominal pain with the nausea vomiting and diarrhea, Rocephin Flagyl discontinued by Dr. Izaiah Magana secondary to persistent nausea CT abdomen pelvis without contrast negative, GI consult by Dr. Izaiah Magana, Shiga negative C diff negative, possible viral gastroenteritis, GRADE B ESOPHAGITIS AND MODERATE GASTRITIS BY EGD BY DR. Izaiah MAGANA 12/17/2024 Colonoscopy could not be done as the patient was unable to keep GoLYTELY down Recent history of norovirus infection treated with amoxicillin at [facility] Diverticulosis without diverticulitis Diabetes type 2 Intractable diarrhea: Imodium p.r.n. Acute Hypokalemia: Replace potassium Acute dehydration: IV fluids MRSA in the nose: Bactroban nasal ointment History of lumbar spine surgery Time spent 50 minutes Advanced care planning time 20 minutes Patient is full code Patient Lives in [place] and visiting her daughter here Midline in place SURESH Ralph at bedside Physical therapy ordered SNF vs Home Health for IV antibiotics Kirsten [place] at bedside . Plan discussed with: Patient Date of Service: Dec 22, 2024 Billing Provider: BETO CRISTOBAL MD Common Visit Codes: [id number] INP/OBS CARE(HIGH) BETO CRISTOBAL MD Dec 22, 2024 10:04
[2024-12-23] VITALS (8 sets, daily range): BP systolic 146–159; BP diastolic 75–83; PULSE 88–102; RESP 15–18; TEMP 97.4–98.5; O2SAT 95–98
[2024-12-23 07:14] LABS: Hematocrit 37.1 % (36.0-46.0); Hemoglobin 12.5 g/dL (12.2-16.2); Mean Corpuscular Hemoglobin 30.0 pg (28.0-32.0); Mean Corpuscular Volume 88.7 fL (80.0-100.0); Nucleated Red Blood Cells % 0.1 %
[2024-12-23 07:44] LABS: Alanine Aminotransferase 17 U/L (7-40); Albumin 3.5 g/dL (3.2-4.8); Alkaline Phosphatase 63 U/L (46-116); Anion Gap 13 (5-15); BUN/Creatinine Ratio 7.6 (10.0-20.0); Blood Urea Nitrogen < 5 mg/dL (9-23); Calcium 10.0 mg/dL (8.7-10.4); Carbon Dioxide 22 mmol/L (20-31); Chloride 106 mmol/L (98-107); Glucose 153 mg/dL (74-106); Potassium 3.4 mmol/L (3.5-5.1); Sodium 141 mmol/L (136-145); Total Protein 5.4 g/dL (5.7-8.2)
[2024-12-23 07:45] LABS: Bilirubin, Total 0.6 mg/dL (0.2-1.0)
[2024-12-23] MEDS ORDERED: CLINIMIX PER PHARMACY 0 ML IV SCH (10:30)
--- NOTE | 2024-12-23 10:33 | DVHPN2 ---
Reviewed: Care Plan, H&P, Labs, Medications, Previous Orders, Radiology Changes from previous H/P or p: No Changes Eyes: No Pain, No Vision change, No Conjunctivae inflammation, No Eyelid inflammation, No Other, No Redness ENT: No Ear pain, No Ear discharge, No Nose pain, No Nose discharge, No Nose congestion, No Mouth pain, No Mouth swelling, No Throat pain, No Throat swelling, No Other Cardiovascular: No Chest Pain, No Palpitations, No Orthopnea, No Paroxysmal Noc. Dyspnea, No Edema, No Lt Headedness, No Other Respiratory: No Cough, No Dry, No Shortness of breath, No SOB with excertion, No Wheezing, No Hemoptysis, No Pleuritic Pain, No Sputum, No Other Gastrointestinal: Nausea, Vomiting, Abdominal Pain, Diarrhea; No Constipation, No Melena, No Hematochezia, No Other Genitourinary: No Dysuria, No Frequency, No Incontinence, No Hematuria, No Retention, No Other Musculoskeletal: No other, No neck pain, No shoulder pain, No arm pain, No back pain, No hand pain, No leg pain, No foot pain Skin: No Rash, No Lesions, No Jaundice, No Bruising, No Other Objective Vitals Vital Signs Date Time Temp Pulse Resp B/P (MAP) Pulse Ox O2 Delivery O2 Flow Rate FiO2 12/23/24 10:04 146/79 12/23/24 05:00 97.5 88 16 98 97.5 12/22/24 20:00 Room Air* 0 21 Intake/Output Intake and Output 12/23/24 07:00 Intake Total 1550 ml Balance 1550 ml Intake Oral 500 ml IV Total 1050 ml # Voids 10 # Bowel Movements 3 General Appearance: Alert, Oriented X3, Cooperative, No acute distress, mild distress, moderate distress, severe distress, Other Lungs: Clear to auscultation, Normal air movement, Other Cardiovascular: Regular rate, Normal S1, Normal S2, No murmurs, Gallops, Rubs, Other Abdomen: Normal bowel sounds, Soft, No tenderness, No hepatospenomegaly, No masses, Other Medications Current Medications Medications Dose Ordered Sig/Jimmy Route Start Time Stop Time Status Last Admin Dose Admin Ondansetron HCl 4 mg Q4HP PRN IV 12/13/24 15:45 12/23/24 09:55 4 MG Docusate Sodium 100 mg BIDPRN PRN PO 12/13/24 15:45 Enoxaparin Sodium 40 mg DAILY SC 12/13/24 15:45 12/23/24 10:01 40 MG Diagnostic Test (Pha) 1 strip ACHS 12/13/24 17:00 12/23/24 06:35 1 STRIP Insulin Human Regular HS SC 12/13/24 22:00 Insulin Human Regular AC SC 12/13/24 17:00 12/23/24 06:35 3 UNITS Dextrose 50 ml UD PRN IV 12/13/24 15:45 Nitroglycerin 0.4 mg Q5MINP PRN SL 12/13/24 15:45 Ceftriaxone Sodium 50 ml @ 100 mls/hr DAILY@09 IV 12/15/24 09:00 12/23/24 09:54 100 MLS/HR Linezolid 300 ml @ 150 mls/hr Q12HR IV 12/16/24 10:00 12/23/24 10:04 150 MLS/HR Diphenhydramine HCl 25 mg Q6HP PRN IV 12/16/24 10:15 12/21/24 15:42 25 MG Benazepril HCl 10 mg DAILY PO 12/18/24 10:00 12/23/24 10:04 10 MG Amlodipine Besylate 5 mg DAILY PO 12/18/24 10:00 UNV Potassium Chloride 40 meq/ Dextrose/Lactated Ringer's 1,020 ml @ 100 mls/hr [id number] IV 12/18/24 10:30 12/22/24 17:20 100 MLS/HR Loperamide HCl 2 mg PRN PRN PO 12/19/24 09:45 12/21/24 17:19 2 MG Pantoprazole Sodium 40 mg BID IV 12/19/24 22:00 12/23/24 09:54 40 MG Sucralfate 1 gm QID@0600,1130,1700,2200 PO 12/19/24 22:00 12/23/24 05:12 1 GM Metoclopramide HCl 5 mg Q8HR IV 12/20/24 14:00 12/23/24 05:12 5 MG Amino Acids 0 ml @ 0 mls/hr PER PHARMACY IV 12/23/24 10:30 UNV Laboratory Results Laboratory Tests 12/23/24 06:01 Chemistry Test 12/23/24 06:01 Albumin 3.5 g/dL (3.2-4.8) Calcium Level 10.0 mg/dL (8.7-10.4) Total Protein 5.4 g/dL (5.7-8.2) L LFT Test 12/23/24 06:01 Alanine Aminotransferase (ALT) 17 U/L (7-40) Alkaline Phosphatase 63 U/L (46-116) Aspartate Amino Transferase (AST) 42 U/L (13-40) H Total Bilirubin 0.6 mg/dL (0.2-1.0) Urinalysis Test 12/13/24 11:19 Urine Color Light-orange (Yellow) Urine Clarity Ex.turbid (Clear) Urine pH 6.0 (5.0-9.0) Urine Specific [place] 1.014 (1.001-1.035) Urine Protein 1+ (Negative) H Urine Ketones 1+ (Negative) H Urine Blood 2+ /uL (Negative) H Urine Nitrite Negative (Negative) Urine Bilirubin Negative (Negative) Urine Urobilinogen Normal mg/dL (Negative) Urine Leukocyte Esterase 3+ /uL (Negative) Urine RBC 58 /hpf (0 - 4) Urine WBC Clumps Present /hpf (None Seen) Urine Microscopic WBC 1231 /HPF (0-5) H Urine Squamous Epithelial Cells Few /hpf (<5) Urine Bacteria None seen /hpf (None Seen) Urine Mucus Few (None Seen) Urine Glucose Normal mg/dL (Normal) Microbiology Microbiology Date/Time Source Procedure Growth Status 12/16/24 01:30 Urine - Midstream Clean Catch Urine Culture - Final Complete 12/14/24 13:11 Blood Blood Culture - Final NO GROWTH AFTER 5 DAYS OF INCUBATION. Complete 12/14/24 11:39 Nose MRSA Screen - Final Methicillin Resistant S.aureus Complete 12/14/24 11:19 Stool Stool Culture - Final Complete 12/14/24 11:19 Stool Shiga Toxin I & II - Final Complete 12/14/24 11:19 Stool Clostridium difficile Toxin Assay - Final Complete Labs and/or images reviewed: Labs reviewed by me, Image(s) reviewed by me Assessment/Plan Assessment/Plan Sepsis secondary to urinary tract infection: Blood cultures negative, urine cultures growing E coli and E faecalis, continue Rocephin, add Zyvox 600 mg IV q.12h for E faecalis Acute abdominal pain with the nausea vomiting and diarrhea, Rocephin Flagyl discontinued by Dr. Izaiah Magana secondary to persistent nausea CT abdomen pelvis without contrast negative, GI consult by Dr. Izaiah Magana, Shiga negative C diff negative, possible viral gastroenteritis, GRADE B ESOPHAGITIS AND MODERATE GASTRITIS BY EGD BY DR. Izaiah MAGANA 12/17/2024 Colonoscopy could not be done as the patient was unable to keep GoLYTELY down Recent history of norovirus infection treated with amoxicillin at [facility] Diverticulosis without diverticulitis Diabetes type 2 Intractable diarrhea: Imodium p.r.n. Acute Hypokalemia: Replace potassium Acute dehydration: IV fluids MRSA in the nose: Bactroban nasal ointment History of lumbar spine surgery Time spent 50 minutes Advanced care planning time 20 minutes Patient is full code Patient Lives in [place] and visiting her daughter here Midline in place SURESH Duke at bedside Nutrition clinimix per pharmacy Physical therapy ordered SNF vs Home Health for IV antibiotics [facility] at bedside Daughter Yen [phone] at bed side. Persistent nausea and vomiting: CT chest abdomen pelvis without contrast ordered, requested GI Dr. Izaiah Magana to re-evaluate pt . Plan discussed with: Patient My Orders Orders - BETO CRISTOBAL MD Procedure Category Date Status Time Clinimix Per Pharmacy PHA 12/23/24 Logged 10:30 Chst Ab Pel Wo Con-No CT 12/23/24 Logged Iv/Oral 10:26 Date of Service: Dec 23, 2024 Billing Provider: BETO CRISTOBAL MD Common Visit Codes: [id number] CARE 30-74 MIN BETO CRISTOBAL MD Dec 23, 2024 10:33
[2024-12-23 11:16] LABS: Magnesium 1.2 mg/dL (1.6-2.6)
--- NOTE | 2024-12-23 12:50 | DVH ---
EXAM: CT CHST AB PEL WO CON-NO IV/ORAL INDICATION: Persistent nausea and vomiting TECHNIQUE: Volumetric multidetector CT images of the chest, abdomen and pelvis were obtained after th e administration of IV contrast. All CT scans at this facility use dose modulation, iterative reconst ruction, and/or weight based dosing when appropriate to reduce radiation dose to as low as reasonably achievable. COMPARISON: None FINDINGS: LOWER NECK: Unremarkable LYMPH NODES/MEDIASTINUM: No abnormal lymph nodes by CT size criteria. CARDIOVASCULAR: Normal cardiac size. No pericardial effusion. No aneurysmal dilatation of the great v essels. No significant coronary artery calcifications. LUNG PARENCHYMA/PLEURAL SPACE: No pleural effusion or pneumothorax. No consolidation, suspicious foca l airspace opacity, or suspicious nodules. CHEST WALL: Left anterior chest loop recorder LIVER: Diffuse hepatic steatosis GALLBLADDER/BILIARY TREE: No cholelithiasis. SPLEEN: Unremarkable. PANCREAS: Unremarkable. ADRENAL GLANDS: Unremarkable KIDNEYS: No hydronephrosis. BLADDER: Unremarkable for the degree distention. PELVIC ORGANS: Hysterectomy BOWEL/MESENTERY: No CT evidence of bowel obstruction. Trace possible sliding hiatal hernia ASCITES: Absent LYMPHADENOPATHY: No pathologically enlarged lymph nodes by CT size criteria VASCULATURE: No aneurysmal dilatation. ABDOMINAL WALL: Unremarkable. MUSCULOSKELETAL: No acute fracture or aggressive focal osseous lesion. IMPRESSION: 1. No CT evidence of an acute chest, abdominal/pelvic process. Hepatic steatosis. Trace possible slid ing hiatal hernia 2. No CT evidence of bowel obstruction.
[2024-12-23] MEDS: MAGNESIUM SULFATE 1GM/100ML 100 ML IV SCH (13:53)
[2024-12-23] MEDS: LORazepam 2MG/ML-1ML VIAL IV ONE (17:24)
[2024-12-23] MEDS: POTASSIUM CHL 20MEQ/100ML 100 ML IV ONE (18:42)
--- NOTE | 2024-12-23 20:01 | DVHPN2 ---
Progress Note - Dictate Date Seen: Dec 23, 2024 Medical Necessity Reason Pt with a Central, PICC or Fol: Yes Subjective Patient was seen at bedside and discussed with the daughter at bedside Patient was apparently ill for about four weeks at [facility] and then she was discharged despite her continued illness Because of continued symptoms she decided to come here to [place] so her daughter could take care of her Patient was resting today and had less nausea and vomiting today However patient appears to have a generalized maculopapular rash She is also very restless and agitated but is responding appropriately to questions daughter states that her behavior is not her normal self There was a possibility of underlying history of anxiety and depression She did have a history of a diarrheal illness and was diagnosed with norovirus Her labs are normalized today and repeat urine culture showed no growth I had discontinued her IV Flagyl because of nausea vomiting and started her on IV Reglan Patient is also been started on some Benadryl for her itchy rash EGD showed moderate gastritis with some acid reflux. Biopsies are pending Stool for WBC is negative which points against any active colitis vital signs Vital Sign Date Time Temp Pulse Resp B/P (MAP) Pulse Ox O2 Delivery O2 Flow Rate FiO2 12/23/24 17:00 98.5 99 15 158/81 (106) 97 98.5 12/23/24 08:00 Room Air* 0 21 Total Intake and Output 12/22/24 12/22/24 12/23/24 15:00 23:00 07:00 Intake Total 350 ml 200 ml 1000 ml Balance 350 ml 200 ml 1000 ml medications Current Medications Medications Dose Ordered Sig/Jimmy Route Start Time Stop Time Status Last Admin Dose Admin Ondansetron HCl 4 mg Q4HP PRN IV 12/13/24 15:45 12/23/24 09:55 4 MG Docusate Sodium 100 mg BIDPRN PRN PO 12/13/24 15:45 Enoxaparin Sodium 40 mg DAILY SC 12/13/24 15:45 12/23/24 10:01 40 MG Diagnostic Test (Pha) 1 strip ACHS 12/13/24 17:00 12/23/24 17:25 1 STRIP Insulin Human Regular HS SC 12/13/24 22:00 Insulin Human Regular AC SC 12/13/24 17:00 12/23/24 17:32 2 UNITS Dextrose 50 ml UD PRN IV 12/13/24 15:45 Nitroglycerin 0.4 mg Q5MINP PRN SL 12/13/24 15:45 Linezolid 300 ml @ 150 mls/hr Q12HR IV 12/16/24 10:00 12/23/24 10:04 150 MLS/HR Diphenhydramine HCl 25 mg Q6HP PRN IV 12/16/24 10:15 12/21/24 15:42 25 MG Benazepril HCl 10 mg DAILY PO 12/18/24 10:00 12/23/24 10:04 10 MG Amlodipine Besylate 5 mg DAILY PO 12/18/24 10:00 UNV Loperamide HCl 2 mg PRN PRN PO 12/19/24 09:45 12/23/24 09:55 2 MG Pantoprazole Sodium 40 mg BID IV 12/19/24 22:00 12/23/24 09:54 40 MG Sucralfate 1 gm QID@0600,1130,1700,2200 PO 12/19/24 22:00 12/23/24 17:24 1 GM Metoclopramide HCl 5 mg Q8HR IV 12/20/24 14:00 12/23/24 15:54 5 MG Amino Acids 0 ml @ 0 mls/hr PER PHARMACY IV 12/23/24 10:30 Amino Acids/ Electrolytes/ Dextrose 1,000 ml @ 41 mls/hr DAILY@2200 IV 12/23/24 22:00 objective General Appearance: Alert, Oriented X3, Cooperative, No acute distress HEENT: Atraumatic, PERRLA, EOMI, Mucous membr. moist/pink Respiratory: Clear to auscultation, Normal air movement Cardiovascular: Regular rate, Normal S1, Normal S2, No murmurs Abdominal: Normal bowel sounds, Soft, No tenderness, No hepatospenomegaly, No masses Extremities: No clubbing, No cyanosis, No edema, Normal pulses, No tenderness/swelling Skin: No rashes, No breakdown, No significant lesion Neuro: Normal gait, Normal speech, Strength at 5/5 X4 ext, Normal tone, Sensation intact, Cranial nerves 3-12 NL Psych/Mental Status: Mental status NL, Mood NL laboratory and microbiology Laboratory Tests 12/23/24 06:01 Test 12/23/24 06:01 Range/Units Serum Glucose 153 H 74-106 mg/dL Problems(with codes): (1) Maculopapular rash (2) Altered behavior (3) Hiatal hernia with GERD and esophagitis (4) Nausea vomiting and diarrhea (5) Viral gastroenteritis (6) UTI (urinary tract infection) Prognosis Assessment and plan 1. Viral gastroenteritis Continue supportive care IV fluid hydration electrolyte replacement Stool tests were negative for bacterial culture C diff and WBC 2. Gastritis and GERD Await biopsy results still pending Protonix 40 mg IV q.12 hours Okay to discontinue Carafate to eliminate extra medications 3. Maculopapular itchy rash Likely related to her allergic reaction possibly from antibiotics Discontinue Rocephin and discuss with hospitalist team about discontinuing Zyvox since the repeat urine culture is negative Rule out vasculitis, check ESR LEATHA p-ANCA; evaluate need for steroids Benadryl 12.5 mg IV q.6 hours as needed for itching ; however this could be aggravating her agitation 4. Anxiety and depression Patient will be given Ativan 0.5 mg IV x1 dose to see how she reacts to that Daughter is requesting something to help her sleep 5. Altered behavior I had ordered a CT of the head to rule out any cerebellar infarct due to intractable nausea vomiting however CT head was negative Recommend getting a neurology consult to evaluate for possible viral encephalitis Dietary Evaluation Review Comments: 1) Encourage optimal PO intake 2) Advance to 60g CCHO diet when medically feasible 3) Refer to outpatient RD/CD[facility] for weight management 4) Follow-up with gastroenterology 5) Continue to monitor I&O, labs, and skin integrity Expected Outcomes/Goals: 1) appetite and labs to improve 2) diet to advance 3) gradual wt loss 4) f/u in 3-5 days Plan discussed with: Patient, Daughter, Other (Nurse Vanessa) KERRY TOMAS MD Dec 23, 2024 20:01
[2024-12-23] MEDS: AMINO ACID INFUSION IN D10W 1,000 ML IV SCH (23:18)
[2024-12-24] VITALS (7 sets, daily range): BP systolic 142–165; BP diastolic 61–85; PULSE 56–103; RESP 18–20; TEMP 97.6–98.7; O2SAT 95–98
[2024-12-24 08:22] LABS: Hematocrit 34.7 % (36.0-46.0); Hemoglobin 11.9 g/dL (12.2-16.2); Mean Corpuscular Hemoglobin 30.5 pg (28.0-32.0); Mean Corpuscular Volume 88.4 fL (80.0-100.0); Nucleated Red Blood Cells % 0.0 %
[2024-12-24 08:49] LABS: Alanine Aminotransferase 18 U/L (7-40); Albumin 3.4 g/dL (3.2-4.8); Alkaline Phosphatase 61 U/L (46-116); Anion Gap 11 (5-15); Bilirubin, Total 0.6 mg/dL (0.2-1.0); Calcium 9.3 mg/dL (8.7-10.4); Carbon Dioxide 24 mmol/L (20-31); Chloride 103 mmol/L (98-107); Magnesium 1.7 mg/dL (1.6-2.6); Sodium 138 mmol/L (136-145)
[2024-12-24 09:01] LABS: BUN/Creatinine Ratio 7.7 (10.0-20.0); Blood Urea Nitrogen < 5 mg/dL (9-23); Glucose 195 mg/dL (74-106); Potassium 3.2 mmol/L (3.5-5.1); Total Protein 5.2 g/dL (5.7-8.2)
--- NOTE | 2024-12-24 10:10 | DVHPN2 ---
Progress Note Date Seen: Dec 24, 2024 Resident Creating Document: EKATERINA CRUZ RESIDENT Medical Necessity Reason Pt with a Central, PICC or Fol: Yes Subjective Review of Systems 74-year-old female with past medical history of type 2 diabetes, hysterectomy, laminectomy, who originally came for nausea, vomiting and diarrhea that has been ongoing for the last 1 month, initially patient was hospitalized at [facility] for 2 weeks where the workup was largely unremarkable and patient was discharged. Patient subsequently moved to [facility] with her daughter, her daughter brought her to the [facility] for similar symptoms. Per patient's daughter at bedside, patient had undergone a stool test which had initially shown norovirus and subsequently was negative. Patient seen and examined at bedside Continues to remain unable to tolerate p.o. intake No further diarrhea, however no further oral intake either Overnight episodes of delirium, currently AO x2 Continues to have nausea and dry heaving. Objective vital signs Vital Sign Date Time Temp Pulse Resp B/P (MAP) Pulse Ox O2 Delivery O2 Flow Rate FiO2 12/24/24 09:28 149/86 12/24/24 01:00 98.7 56 20 96 98.7 12/23/24 20:00 Room Air* 0 21 Total Intake and Output 12/23/24 12/23/24 12/24/24 15:00 23:00 07:00 Intake Total 350 ml 1150 ml 1000 ml Balance 350 ml 1150 ml 1000 ml medications Current Medications Medications Dose Ordered Sig/Jimmy Route Start Time Stop Time Status Last Admin Dose Admin Ondansetron HCl 4 mg Q4HP PRN IV 12/13/24 15:45 12/23/24 09:55 4 MG Docusate Sodium 100 mg BIDPRN PRN PO 12/13/24 15:45 Enoxaparin Sodium 40 mg DAILY SC 12/13/24 15:45 12/24/24 09:27 40 MG Diagnostic Test (Pha) 1 strip ACHS 12/13/24 17:00 12/24/24 06:34 1 STRIP Insulin Human Regular HS SC 12/13/24 22:00 Insulin Human Regular AC SC 12/13/24 17:00 12/24/24 06:37 3 UNITS Dextrose 50 ml UD PRN IV 12/13/24 15:45 Nitroglycerin 0.4 mg Q5MINP PRN SL 12/13/24 15:45 Linezolid 300 ml @ 150 mls/hr Q12HR IV 12/16/24 10:00 12/24/24 09:23 150 MLS/HR Diphenhydramine HCl 25 mg Q6HP PRN IV 12/16/24 10:15 12/21/24 15:42 25 MG Benazepril HCl 10 mg DAILY PO 12/18/24 10:00 12/24/24 09:28 10 MG Amlodipine Besylate 5 mg DAILY PO 12/18/24 10:00 UNV Loperamide HCl 2 mg PRN PRN PO 12/19/24 09:45 12/23/24 09:55 2 MG Pantoprazole Sodium 40 mg BID IV 12/19/24 22:00 12/24/24 09:27 40 MG Metoclopramide HCl 5 mg Q8HR IV 12/20/24 14:00 12/24/24 06:34 5 MG Amino Acids 0 ml @ 0 mls/hr PER PHARMACY IV 12/23/24 10:30 Amino Acids/ Electrolytes/ Dextrose 1,000 ml @ 41 mls/hr DAILY@2200 IV 12/23/24 22:00 12/23/24 23:18 41 MLS/HR Potassium Chloride 100 ml @ 50 mls/hr Q2H IV 12/24/24 10:00 12/24/24 13:59 UNV Examination General Appearance: Cooperative. Well developed. Well nourished. NAD Head Exam: Normal inspection Neck Exam: Normal inspection. Non-tender. Normal alignment Pulmonary/Respiratory: Chest non-tender. Clear bilateral breath sounds, no crackles, no wheezing. Cardiovascular/Chest: Regular rate and rhythm. No murmurs. No JVD. Peripheral Pulses: (L). 2+ Pedal (R). 2+ Pedal (L) Abdominal Exam: Normal bowel sounds. Soft. normal abdomen, no visible veins, Nontender. No hepatospenomegaly. No masses Ankle Exam: Negative ankle edema Lower extremities: Negative lower extremity edema. Fading dusky rash noted on bilateral lower extremities Skin Exam: Normal inspection. Normal color. Warm. Dry laboratory and microbiology Laboratory Tests 12/24/24 07:38 Test 12/24/24 07:38 Range/Units Serum Glucose 195 H 74-106 mg/dL Microbiology Date/Time Source Procedure Growth Status 12/16/24 01:30 Urine - Midstream Clean Catch Urine Culture - Final Complete 12/14/24 13:11 Blood Blood Culture - Final NO GROWTH AFTER 5 DAYS OF INCUBATION. Complete 12/14/24 11:39 Nose MRSA Screen - Final Methicillin Resistant S.aureus Complete 12/14/24 11:19 Stool Stool Culture - Final Complete 12/14/24 11:19 Stool Shiga Toxin I & II - Final Complete 12/14/24 11:19 Stool Clostridium difficile Toxin Assay - Final Complete Labs and/or images reviewed: Labs reviewed by me, Image(s) reviewed by me Problem List/Assessment/Plan Problem List/Assessment/Plan Intractable nausea and vomiting Viral gastroenteritis Maculopapular rash, improving GERD, erosive esophagitis Metabolic versus toxic encephalopathy Hiatal hernia Acute complicated UTI Plan: Continue supportive care Continue Clinimix IV Protonix 40 mg b.i.d. Metoclopramide IV Q 8 hours with plans to taper over the next couple of days Neurological evaluation recommended Patient will benefit from psychiatric evaluation We will consider colonoscopy once patient is neurologically and medically stable, possibly later this week Thank you so much for the opportunity to consult on your patient. GI team will follow the patient. In case of any questions or concerns please feel free to reach out. Plan discussed with Dr. Magana Plan discussed with: Patient, Spouse, Daughter, Other (RN) Dietary Evaluation Review Comments: 1) Encourage optimal PO intake 2) Advance to 60g CCHO diet when medically feasible 3) Refer to outpatient RD/[facility] for weight management 4) Follow-up with gastroenterology 5) Continue to monitor I&O, labs, and skin integrity Expected Outcomes/Goals: 1) appetite and labs to improve 2) diet to advance 3) gradual wt loss 4) f/u in 3-5 days EKATERINA CRUZ RESIDENT Dec 24, 2024 10:10
[2024-12-24] MEDS: POTASSIUM CHL 20MEQ/100ML 100 ML IV SCH ×2 (13:48→18:45)
--- NOTE | 2024-12-24 14:19 | DVHPN2 ---
Subjective Patient is seen at bedside, per family patient is altered mentation from baseline Reviewed: Care Plan, H&P, Labs, Medications, Previous Orders, Radiology Changes from previous H/P or p: No Changes General: Per HPI Eyes: No Pain, No Vision change, No Conjunctivae inflammation, No Eyelid inflammation, No Other, No Redness ENT: No Ear pain, No Ear discharge, No Nose pain, No Nose discharge, No Nose congestion, No Mouth pain, No Mouth swelling, No Throat pain, No Throat swelling, No Other Cardiovascular: No Chest Pain, No Palpitations, No Orthopnea, No Paroxysmal Noc. Dyspnea, No Edema, No Lt Headedness, No Other Respiratory: No Cough, No Dry, No Shortness of breath, No SOB with excertion, No Wheezing, No Hemoptysis, No Pleuritic Pain, No Sputum, No Other Gastrointestinal: Nausea, Vomiting, Abdominal Pain, Diarrhea; No Constipation, No Melena, No Hematochezia, No Other Genitourinary: No Dysuria, No Frequency, No Incontinence, No Hematuria, No Retention, No Other Musculoskeletal: No other, No neck pain, No shoulder pain, No arm pain, No back pain, No hand pain, No leg pain, No foot pain Skin: No Rash, No Lesions, No Jaundice, No Bruising, No Other Objective Vitals Vital Signs Date Time Temp Pulse Resp B/P (MAP) Pulse Ox O2 Delivery O2 Flow Rate FiO2 12/24/24 09:28 149/86 12/24/24 09:00 98.3 93 18 96 98.3 12/23/24 20:00 Room Air* 0 21 Intake/Output Intake and Output 12/24/24 07:00 Intake Total 2500 ml Balance 2500 ml Intake Oral 1150 ml IV Total 1350 ml # Voids 19 # Bowel Movements 10 Exam GEN: Awake alert, inappropriate laughter HEENT: NC/AT; MMM. CV: RRR, no m/r/g. LUNGS: CTAB, no w/r/c. ABD: Soft, NT/ND, NBS, no masses or organomegaly. EXT: skin Warm, well perfused. no rashes. No clubbing, cyanosis, or edema. NEURO: No focal deficits. Patient following commands minimally, awake and alert. inappropriate laughter. General Appearance: Alert, Oriented X3, Cooperative, No acute distress, mild distress, moderate distress, severe distress, Other Lungs: Clear to auscultation, Normal air movement, Other Cardiovascular: Regular rate, Normal S1, Normal S2, No murmurs, Gallops, Rubs, Other Abdomen: Normal bowel sounds, Soft, No tenderness, No hepatospenomegaly, No masses, Other Medications Current Medications Medications Dose Ordered Sig/Jimmy Route Start Time Stop Time Status Last Admin Dose Admin Ondansetron HCl 4 mg Q4HP PRN IV 12/13/24 15:45 12/23/24 09:55 4 MG Docusate Sodium 100 mg BIDPRN PRN PO 12/13/24 15:45 Enoxaparin Sodium 40 mg DAILY SC 12/13/24 15:45 12/24/24 09:27 40 MG Diagnostic Test (Pha) 1 strip ACHS 12/13/24 17:00 12/24/24 12:18 1 STRIP Insulin Human Regular HS SC 12/13/24 22:00 Insulin Human Regular AC SC 12/13/24 17:00 12/24/24 12:43 3 UNITS Dextrose 50 ml UD PRN IV 12/13/24 15:45 Nitroglycerin 0.4 mg Q5MINP PRN SL 12/13/24 15:45 Linezolid 300 ml @ 150 mls/hr Q12HR IV 12/16/24 10:00 12/24/24 09:23 150 MLS/HR Diphenhydramine HCl 25 mg Q6HP PRN IV 12/16/24 10:15 12/21/24 15:42 25 MG Benazepril HCl 10 mg DAILY PO 12/18/24 10:00 12/24/24 09:28 10 MG Amlodipine Besylate 5 mg DAILY PO 12/18/24 10:00 UNV Loperamide HCl 2 mg PRN PRN PO 12/19/24 09:45 12/23/24 09:55 2 MG Pantoprazole Sodium 40 mg BID IV 12/19/24 22:00 12/24/24 09:27 40 MG Metoclopramide HCl 5 mg Q8HR IV 12/20/24 14:00 12/24/24 06:34 5 MG Amino Acids 0 ml @ 0 mls/hr PER PHARMACY IV 12/23/24 10:30 Amino Acids/ Electrolytes/ Dextrose 1,000 ml @ 41 mls/hr DAILY@2200 IV 12/23/24 22:00 12/23/24 23:18 41 MLS/HR Potassium Chloride 100 ml @ 50 mls/hr Q2H IV 12/24/24 11:21 12/24/24 15:20 Laboratory Results Laboratory Tests 12/24/24 07:38 Chemistry Test 12/24/24 07:38 Albumin 3.4 g/dL (3.2-4.8) Calcium Level 9.3 mg/dL (8.7-10.4) Magnesium Level 1.7 mg/dL (1.6-2.6) Phosphorus Level 3.8 mg/dL (2.4-5.1) Total Protein 5.2 g/dL (5.7-8.2) L LFT Test 12/24/24 07:38 Alanine Aminotransferase (ALT) 18 U/L (7-40) Alkaline Phosphatase 61 U/L (46-116) Aspartate Amino Transferase (AST) 33 U/L (13-40) Total Bilirubin 0.6 mg/dL (0.2-1.0) Urinalysis Test 12/13/24 11:19 Urine Color Light-orange (Yellow) Urine Clarity Ex.turbid (Clear) Urine pH 6.0 (5.0-9.0) Urine Specific [place] 1.014 (1.001-1.035) Urine Protein 1+ (Negative) H Urine Ketones 1+ (Negative) H Urine Blood 2+ /uL (Negative) H Urine Nitrite Negative (Negative) Urine Bilirubin Negative (Negative) Urine Urobilinogen Normal mg/dL (Negative) Urine Leukocyte Esterase 3+ /uL (Negative) Urine RBC 58 /hpf (0 - 4) Urine WBC Clumps Present /hpf (None Seen) Urine Microscopic WBC 1231 /HPF (0-5) H Urine Squamous Epithelial Cells Few /hpf (<5) Urine Bacteria None seen /hpf (None Seen) Urine Mucus Few (None Seen) Urine Glucose Normal mg/dL (Normal) Microbiology Microbiology Date/Time Source Procedure Growth Status 12/16/24 01:30 Urine - Midstream Clean Catch Urine Culture - Final Complete 12/14/24 13:11 Blood Blood Culture - Final NO GROWTH AFTER 5 DAYS OF INCUBATION. Complete 12/14/24 11:39 Nose MRSA Screen - Final Methicillin Resistant S.aureus Complete 12/14/24 11:19 Stool Stool Culture - Final Complete 12/14/24 11:19 Stool Shiga Toxin I & II - Final Complete 12/14/24 11:19 Stool Clostridium difficile Toxin Assay - Final Complete Labs and/or images reviewed: Labs reviewed by me, Image(s) reviewed by me Assessment/Plan Assessment/Plan 12/24: Patient is family members or complaining of acute mental status change, patient is awake alert but inappropriately laughing. Neurology has been consulted. She is being treated for UTI, continues to have diarrhea since she returned from vacation. Neurology is consulted, we will increase ceftriaxone to meningitis dose, neurology is consulted need LP HSV versus RPR. We will follow and may need to repeat CT head as well and/or MRI defer to Neurology. GI has done EGD finding gastritis and hiatal hernia. Dressed for RPR treponemal, ammonia, ABG, continue test CBC CMP. Continuing to follow up daily exam is neuro checks. Neurology eval pending. May need repeat CT head. We will add 2 g ceftriaxone to linezolid and doxycycline. We will likely need LP. Diagnosis: Acute toxic metabolic encephalopathy Sepsis due to below Acute complicated UTI, due to E coli and Enterococcus faecalis Acute abdominal pain Intractable nausea Intractable diarrhea Gastroenteritis, possible, infectious etiology likely, Status post endoscopy Moderate gastritis Sliding-type hiatal hernia Grade B esophagitis Diverticulosis without diverticulitis Type 2 diabetes Hypokalemia, Acute intravascular volume depletion MRSA nares History of lumbar surgery Plan : IV antibiotics Rocephin 2 g daily, Zyvox 600 IV twice daily Prn analgesia Continuous IV fluids Replete potassium as needed goal K more than 3.5 Neurology consult GI consult appreciate following PT ordered Nutrition Clinimix per pharmacy Midline Med surge Full code Plan discussed with: Spouse Date of Service: Dec 24, 2024 Billing Provider: CHAVA SYLVESTER MD Common Visit Codes: 24503-[id number] INP/OBS CARE(HIGH) CHAVA SYLVESTER MD Dec 24, 2024 14:19
[2024-12-24] MEDS: DOXYCYCLINE 100MG/100ML 100 ML IV SCH (20:09)
[2024-12-25] VITALS (8 sets, daily range): BP systolic 141–161; BP diastolic 44–81; PULSE 85–107; RESP 17–18; TEMP 97.3–98.5; O2SAT 95–97
[2024-12-25 05:57] LABS: Hematocrit 36.5 % (36.0-46.0); Hemoglobin 12.4 g/dL (12.2-16.2); Mean Corpuscular Hemoglobin 30.2 pg (28.0-32.0); Mean Corpuscular Volume 89.2 fL (80.0-100.0); Nucleated Red Blood Cells % 0.1 %
[2024-12-25 06:17] LABS: Alanine Aminotransferase 20 U/L (7-40); Albumin 3.6 g/dL (3.2-4.8); Alkaline Phosphatase 68 U/L (46-116); Anion Gap 13 (5-15); Bilirubin, Total 0.6 mg/dL (0.2-1.0); Calcium 9.1 mg/dL (8.7-10.4); Carbon Dioxide 21 mmol/L (20-31); Chloride 104 mmol/L (98-107); Magnesium 1.7 mg/dL (1.6-2.6); Sodium 138 mmol/L (136-145); Total Protein 5.9 g/dL (5.7-8.2)
[2024-12-25 06:18] LABS: BUN/Creatinine Ratio 8.8 (10.0-20.0); Blood Urea Nitrogen < 5 mg/dL (9-23); Glucose 201 mg/dL (74-106); Potassium 3.1 mmol/L (3.5-5.1)
[2024-12-25 08:07] LABS: Immunoglobulin A 98 mg/dL (64-422)
[2024-12-25] MEDS ORDERED: POTASSIUM CHL 20MEQ/100ML 100 ML IV SCH (08:45)
--- NOTE | 2024-12-25 08:45 | DVHPN2 ---
Progress Note Date Seen: Dec 25, 2024 Resident Creating Document: EKATERINA CRUZ RESIDENT Medical Necessity Reason Pt with a Central, PICC or Fol: Yes Subjective Review of Systems 74-year-old female with past medical history of type 2 diabetes, hysterectomy, laminectomy, who originally came for nausea, vomiting and diarrhea that has been ongoing for the last 1 month, initially patient was hospitalized at [facility] for 2 weeks where the workup was largely unremarkable and patient was discharged. Patient subsequently moved to [facility] with her daughter, her daughter brought her to the [facility] for similar symptoms. Per patient's daughter at bedside, patient had undergone a stool test which had initially shown norovirus and subsequently was negative. Patient seen and examined at bedside Continues to remain unable to tolerate p.o. intake No further diarrhea, however no further oral intake either Overnight episodes of delirium, currently AO x1, worse than yesterday Continues to have nausea and dry heaving. Objective vital signs Vital Sign Date Time Temp Pulse Resp B/P (MAP) Pulse Ox O2 Delivery O2 Flow Rate FiO2 12/25/24 05:00 97.6 97 18 141/66 (91) 97 97.6 12/24/24 20:00 Room Air* 0 21 Total Intake and Output 12/24/24 12/24/24 12/25/24 15:00 23:00 07:00 Intake Total 970 ml 800 ml Balance 970 ml 800 ml medications Current Medications Medications Dose Ordered Sig/Jimmy Route Start Time Stop Time Status Last Admin Dose Admin Ondansetron HCl 4 mg Q4HP PRN IV 12/13/24 15:45 12/23/24 09:55 4 MG Docusate Sodium 100 mg BIDPRN PRN PO 12/13/24 15:45 Diagnostic Test (Pha) 1 strip ACHS 12/13/24 17:00 12/25/24 06:17 1 STRIP Insulin Human Regular HS SC 12/13/24 22:00 Insulin Human Regular AC SC 12/13/24 17:00 12/25/24 06:36 6 UNITS Dextrose 50 ml UD PRN IV 12/13/24 15:45 Nitroglycerin 0.4 mg Q5MINP PRN SL 12/13/24 15:45 Linezolid 300 ml @ 150 mls/hr Q12HR IV 12/16/24 10:00 12/24/24 23:03 150 MLS/HR Diphenhydramine HCl 25 mg Q6HP PRN IV 12/16/24 10:15 12/21/24 15:42 25 MG Benazepril HCl 10 mg DAILY PO 12/18/24 10:00 12/24/24 09:28 10 MG Amlodipine Besylate 5 mg DAILY PO 12/18/24 10:00 UNV Loperamide HCl 2 mg PRN PRN PO 12/19/24 09:45 12/23/24 09:55 2 MG Pantoprazole Sodium 40 mg BID IV 12/19/24 22:00 12/24/24 23:04 40 MG Metoclopramide HCl 5 mg Q8HR IV 12/20/24 14:00 12/25/24 06:17 5 MG Amino Acids 0 ml @ 0 mls/hr PER PHARMACY IV 12/23/24 10:30 Amino Acids/ Electrolytes/ Dextrose 1,000 ml @ 41 mls/hr DAILY@2200 IV 12/23/24 22:00 12/24/24 23:04 41 MLS/HR Ceftriaxone Sodium/Dextrose 50 ml @ 50 mls/hr DAILY IV 12/24/24 17:39 12/24/24 20:10 50 MLS/HR Doxycycline Hyclate 100 ml @ 50 mls/hr Q12HR IV 12/24/24 18:30 12/24/24 20:09 50 MLS/HR Examination General Appearance: Cooperative. Well developed. Well nourished. NAD Head Exam: Normal inspection Neck Exam: Normal inspection. Non-tender. Normal alignment Pulmonary/Respiratory: Chest non-tender. Clear bilateral breath sounds, no crackles, no wheezing. Cardiovascular/Chest: Regular rate and rhythm. No murmurs. No JVD. Peripheral Pulses: (L). 2+ Pedal (R). 2+ Pedal (L) Abdominal Exam: Normal bowel sounds. Soft. normal abdomen, no visible veins, Nontender. No hepatospenomegaly. No masses Ankle Exam: Negative ankle edema Lower extremities: Negative lower extremity edema. Fading dusky rash noted on bilateral lower extremities Skin Exam: Normal inspection. Normal color. Warm. Dry laboratory and microbiology Laboratory Tests 12/25/24 04:47 Test 12/25/24 04:47 Range/Units Serum Glucose 201 H 74-106 mg/dL Microbiology Date/Time Source Procedure Growth Status 12/16/24 01:30 Urine - Midstream Clean Catch Urine Culture - Final Complete 12/14/24 13:11 Blood Blood Culture - Final NO GROWTH AFTER 5 DAYS OF INCUBATION. Complete 12/14/24 11:39 Nose MRSA Screen - Final Methicillin Resistant S.aureus Complete 12/14/24 11:19 Stool Stool Culture - Final Complete 12/14/24 11:19 Stool Shiga Toxin I & II - Final Complete 12/14/24 11:19 Stool Clostridium difficile Toxin Assay - Final Complete Labs and/or images reviewed: Labs reviewed by me, Image(s) reviewed by me Problem List/Assessment/Plan Problem List/Assessment/Plan Intractable nausea and vomiting Viral gastroenteritis Maculopapular rash, improving GERD, erosive esophagitis Metabolic versus toxic encephalopathy Hiatal hernia Acute complicated UTI Plan: Continue supportive care Continue Clinimix IV Protonix 40 mg b.i.d. Metoclopramide IV Q 8 hours with plans to taper over the next couple of days Neurological evaluation recommended Patient will benefit from psychiatric evaluation We will consider colonoscopy once patient is neurologically and medically stable, possibly later this week Thank you so much for the opportunity to consult on your patient. GI team will follow the patient. In case of any questions or concerns please feel free to reach out. Plan discussed with Dr. Magana Plan discussed with: Other (RN) Dietary Evaluation Review Comments: 1) Encourage optimal PO intake 2) Advance to 60g CCHO diet when medically feasible 3) Refer to outpatient RD/[facility] for weight management 4) Follow-up with gastroenterology 5) Continue to monitor I&O, labs, and skin integrity Expected Outcomes/Goals: 1) appetite and labs to improve 2) diet to advance 3) gradual wt loss 4) f/u in 3-5 days EKATERINA CRUZ RESIDENT Dec 25, 2024 08:45
[2024-12-25] MEDS: hydrOXYzine 25 MG TAB or CAP PO PRN (14:42)
--- NOTE | 2024-12-25 14:52 | MEDREC ---
[facility] Intervention Section I [facility] Intervention: Review courses of therapy (CONSIDER D/C LINEZOLID AND DOXY. PATIENT IS BEING TREATED FOR UTI, MRSA NARES IS POSITIVE BUT CXR SHOWS NO DISEASE, TEMPERATURE AND WBC WNL. DOXYCYCLINE AND LINEZOLID ARE DUPLCATE THERAPY.) BRENDAN MAYS [facility] RESIDENT Dec 25, 2024 14:52
[2024-12-25] MEDS: POTASSIUM CHLORIDE 40 MEQ, LIDOCAINE 1% (LOCAL ANESTH.) 4 ML in SODIUM CHL 0.9% 250 ML IV ONE (16:19)
--- NOTE | 2024-12-25 16:46 | DVHPN2 ---
Subjective Patient is seen at bedside, per family patient is altered mentation from baseline Reviewed: Care Plan, H&P, Labs, Medications, Previous Orders, Radiology Changes from previous H/P or p: No Changes General: Per HPI Eyes: No Pain, No Vision change, No Conjunctivae inflammation, No Eyelid inflammation, No Other, No Redness ENT: No Ear pain, No Ear discharge, No Nose pain, No Nose discharge, No Nose congestion, No Mouth pain, No Mouth swelling, No Throat pain, No Throat swelling, No Other Cardiovascular: No Chest Pain, No Palpitations, No Orthopnea, No Paroxysmal Noc. Dyspnea, No Edema, No Lt Headedness, No Other Respiratory: No Cough, No Dry, No Shortness of breath, No SOB with excertion, No Wheezing, No Hemoptysis, No Pleuritic Pain, No Sputum, No Other Gastrointestinal: Nausea, Vomiting, Abdominal Pain, Diarrhea; No Constipation, No Melena, No Hematochezia, No Other Genitourinary: No Dysuria, No Frequency, No Incontinence, No Hematuria, No Retention, No Other Musculoskeletal: No other, No neck pain, No shoulder pain, No arm pain, No back pain, No hand pain, No leg pain, No foot pain Skin: No Rash, No Lesions, No Jaundice, No Bruising, No Other Objective Vitals Vital Signs Date Time Temp Pulse Resp B/P (MAP) Pulse Ox O2 Delivery O2 Flow Rate FiO2 12/25/24 13:42 97.8 99 18 161/81 (107) 97 97.8 12/25/24 08:00 Room Air* 0 21 Intake/Output Intake and Output 12/25/24 07:00 Intake Total 1770 ml Balance 1770 ml Intake Oral 1220 ml IV Total 550 ml # Voids 12 Exam GEN: Awake alert, inappropriate laughter HEENT: NC/AT; MMM. CV: RRR, no m/r/g. LUNGS: CTAB, no w/r/c. ABD: Soft, NT/ND, NBS, no masses or organomegaly. EXT: skin Warm, well perfused. no rashes. No clubbing, cyanosis, or edema. NEURO: No focal deficits. Patient following commands minimally, awake and alert. inappropriate laughter. General Appearance: Alert, Oriented X3, Cooperative, No acute distress, mild distress, moderate distress, severe distress, Other Lungs: Clear to auscultation, Normal air movement, Other Cardiovascular: Regular rate, Normal S1, Normal S2, No murmurs, Gallops, Rubs, Other Abdomen: Normal bowel sounds, Soft, No tenderness, No hepatospenomegaly, No masses, Other Medications Current Medications Medications Dose Ordered Sig/Jimmy Route Start Time Stop Time Status Last Admin Dose Admin Ondansetron HCl 4 mg Q4HP PRN IV 12/13/24 15:45 12/25/24 10:05 4 MG Docusate Sodium 100 mg BIDPRN PRN PO 12/13/24 15:45 Diagnostic Test (Pha) 1 strip ACHS 12/13/24 17:00 12/25/24 11:30 1 STRIP Insulin Human Regular HS SC 12/13/24 22:00 Insulin Human Regular AC SC 12/13/24 17:00 12/25/24 12:55 2 UNITS Dextrose 50 ml UD PRN IV 12/13/24 15:45 Nitroglycerin 0.4 mg Q5MINP PRN SL 12/13/24 15:45 Linezolid 300 ml @ 150 mls/hr Q12HR IV 12/16/24 10:00 12/25/24 12:47 150 MLS/HR Diphenhydramine HCl 25 mg Q6HP PRN IV 12/16/24 10:15 12/21/24 15:42 25 MG Benazepril HCl 10 mg DAILY PO 12/18/24 10:00 12/25/24 09:49 10 MG Amlodipine Besylate 5 mg DAILY PO 12/18/24 10:00 UNV Loperamide HCl 2 mg PRN PRN PO 12/19/24 09:45 12/23/24 09:55 2 MG Pantoprazole Sodium 40 mg BID IV 12/19/24 22:00 12/25/24 09:47 40 MG Metoclopramide HCl 5 mg Q8HR IV 12/20/24 14:00 12/25/24 14:10 5 MG Amino Acids 0 ml @ 0 mls/hr PER PHARMACY IV 12/23/24 10:30 Amino Acids/ Electrolytes/ Dextrose 1,000 ml @ 41 mls/hr DAILY@2200 IV 12/23/24 22:00 12/24/24 23:04 41 MLS/HR Ceftriaxone Sodium/Dextrose 50 ml @ 50 mls/hr DAILY IV 12/24/24 17:39 12/25/24 09:48 50 MLS/HR Doxycycline Hyclate 100 ml @ 50 mls/hr Q12HR IV 12/24/24 18:30 12/25/24 10:56 50 MLS/HR Trazodone HCl 50 mg HS PO 12/25/24 22:00 Hydroxyzine Pamoate 25 mg TID PRN PO 12/25/24 13:15 12/25/24 14:42 25 MG Laboratory Results Laboratory Tests 12/25/24 04:47 Chemistry Test 12/25/24 04:47 Albumin 3.6 g/dL (3.2-4.8) Calcium Level 9.1 mg/dL (8.7-10.4) Magnesium Level 1.7 mg/dL (1.6-2.6) Phosphorus Level 3.5 mg/dL (2.4-5.1) Total Protein 5.9 g/dL (5.7-8.2) LFT Test 12/25/24 04:47 Alanine Aminotransferase (ALT) 20 U/L (7-40) Alkaline Phosphatase 68 U/L (46-116) Aspartate Amino Transferase (AST) 31 U/L (13-40) Total Bilirubin 0.6 mg/dL (0.2-1.0) HgA1c, TSH Test 12/25/24 04:47 Thyroid Stimulating Hormone (TSH) 2.41 uIU/mL (0.55-4.78) Urinalysis Test 12/13/24 11:19 Urine Color Light-orange (Yellow) Urine Clarity Ex.turbid (Clear) Urine pH 6.0 (5.0-9.0) Urine Specific [place] 1.014 (1.001-1.035) Urine Protein 1+ (Negative) H Urine Ketones 1+ (Negative) H Urine Blood 2+ /uL (Negative) H Urine Nitrite Negative (Negative) Urine Bilirubin Negative (Negative) Urine Urobilinogen Normal mg/dL (Negative) Urine Leukocyte Esterase 3+ /uL (Negative) Urine RBC 58 /hpf (0 - 4) Urine WBC Clumps Present /hpf (None Seen) Urine Microscopic WBC 1231 /HPF (0-5) H Urine Squamous Epithelial Cells Few /hpf (<5) Urine Bacteria None seen /hpf (None Seen) Urine Mucus Few (None Seen) Urine Glucose Normal mg/dL (Normal) Blood Gas Results Test 12/25/24 14:35 FiO2 % 21.0 Microbiology Microbiology Date/Time Source Procedure Growth Status 12/16/24 01:30 Urine - Midstream Clean Catch Urine Culture - Final Complete 12/14/24 13:11 Blood Blood Culture - Final NO GROWTH AFTER 5 DAYS OF INCUBATION. Complete 12/14/24 11:39 Nose MRSA Screen - Final Methicillin Resistant S.aureus Complete 12/14/24 11:19 Stool Stool Culture - Final Complete 12/14/24 11:19 Stool Shiga Toxin I & II - Final Complete 12/14/24 11:19 Stool Clostridium difficile Toxin Assay - Final Complete Labs and/or images reviewed: Labs reviewed by me, Image(s) reviewed by me Assessment/Plan Assessment/Plan 12/24: Patient is family members or complaining of acute mental status change, patient is awake alert but inappropriately laughing. Neurology has been consulted. She is being treated for UTI, continues to have diarrhea since she returned from vacation. Neurology is consulted, we will increase ceftriaxone to meningitis dose, neurology is consulted need LP HSV versus RPR. We will follow and may need to repeat CT head as well and/or MRI defer to Neurology. GI has done EGD finding gastritis and hiatal hernia. Dressed for RPR treponemal, ammonia, ABG, continue test CBC CMP. Continuing to follow up daily exam is neuro checks. Neurology eval pending. May need repeat CT head. We will add 2 g ceftriaxone to linezolid and doxycycline. We will likely need LP. 12/25: Patient remains confused. No inappropriate laughter today. Neurology consult was entered and inappropriately, and has been face and neurology is supposed to see patient today. Continuing treatment for UTI and gastroenteritis. Ceftriaxone 2 g, and linezolid UTI. Adding doxycycline for coverage of atypical organisms. Pending CSF, likely tomorrow. Note no MRI done only CT. Head CT was negative. Symptoms are not typical of MS, defer to Neurology whether patient needs MRI with or without contrast. Ammonia and treponemal test are negative. VBG is unconcerning for hypercarbia. Diagnosis: Acute toxic metabolic encephalopathy Sepsis due to below Acute complicated UTI, due to E coli and Enterococcus faecalis Acute abdominal pain Intractable nausea Intractable diarrhea Gastroenteritis, possible, infectious etiology likely, Status post endoscopy Moderate gastritis Sliding-type hiatal hernia Grade B esophagitis Diverticulosis without diverticulitis Type 2 diabetes Hypokalemia, Acute intravascular volume depletion MRSA nares History of lumbar surgery Plan : IV antibiotics Rocephin 2 g daily, Zyvox 600 IV twice daily , doxycycline 100 IV b.i.d. Prn analgesia Continuous IV fluids Replete potassium as needed goal K more than 3.5 Neurology consult Radiology consult for LP GI consult appreciate following PT ordered Nutrition Clinimix per pharmacy Midline Med surge Full code Plan discussed with: Patient My Orders Orders - CHAVA SYLVESTER MD Procedure Category Date Status Time Insert Midline ORDERS 12/24/24 Transmitted 17:25 Doxycycline PHA 12/24/24 In Process 100mg/100ml 18:30 * Radiologist Consult CONS 12/24/24 Transmitted 17:25 Ceftriaxone 2gm/50ml PHA 12/24/24 In Process D5w (Rocephin 2gm/5 17:39 Potassium Chloride PHA 12/25/24 In Process (Potassium Chloride). 13:00 Trazodone Hcl PHA 12/25/24 In Process (Desyrel) 22:00 * Picc Line Consult CONS 12/25/24 Transmitted 11:19 Hydroxyzine Oral PHA 12/25/24 In Process (Vistaril Oral) 13:15 Venous Blood Gas RT 12/25/24 Logged 13:30 Tpn Per Pharmacy VIK 12/25/24 In Process 14:07 Csf Cell Count & Diff LAB 12/25/24 Verified 16:39 Csf Hsv1/2 Dna Pcr LAB 12/25/24 Verified 16:39 Glucose, Csf LAB 12/25/24 Verified 16:39 Protein, Csf LAB 12/25/24 Verified 16:39 Vdrl, Cererbrospinal LAB 12/25/24 Verified Fluid 16:39 Hiv 1&2 Antibody LAB 12/26/24 Verified 04:00 Date of Service: Dec 25, 2024 Billing Provider: CHAVA SYLVESTER MD Common Visit Codes: [id number] INP/OBS CARE(HIGH) CHAVA SYLVESTER MD Dec 25, 2024 16:46
[2024-12-25] MEDS ORDERED: TPN PER PHARMACY 0 ML IV SCH (18:00)
[2024-12-25] MEDS ORDERED: DEXTROSE (50%) 50ML SYRG IV SCH (18:30)
--- NOTE | 2024-12-25 21:26 | DVHINCON2 ---
Date of service: Dec 25, [address] Magana Reason for Consultation Confusion History of Present Illness Ms. Ford is a 74 years old right-handed female with a history of hypertension, diabetes, obesity, she was brought to the [facility] on 12/13/2024 with a chief complaint of nausea, vomiting, diarrhea for two weeks. At this time, the patient is awake, but is only oriented to person, but he is with reasonable social skills. Her sitter and nurse reports the patient was agitated earlier. The history is obtained from her , nurse, and chart review The patient was mentally fine after he came to the hospital, but around 0 12/20/2024, the patient has become confused, in the sometimes agitated, not cooperative. Her relates the patient has never had similar problem before, no history of stroke, seizure disorder In the hospital, the patient was found to have urinary tract infection. [phone], no answer, Bobby Urinalysis, 12/13/2024: E coli Blood culture, 12/14/2024: No growth Urinalysis, 12/13/2024: WBC: 1231, urine WBC clumps: Present, urine leukocyte esterase: 3+ WBC/HB/PLT/MCV, 12/13/2024: 101/14.1/311/88.8, 12/25/24: 7.9/12.4/253/89.2 ESR, 12/24/2024: 8 CMP, 12/14/2024: Unremarkable Ammonia, 12/25/2024: 23 TSH, 12/25/24: 241 Echocardiogram, 12/17/2024: lvef 60% by visual estimate normal rv function borderline left atrium enlarged mild mitral regurg CT head, 12/20/2024: NO ACUTE INTRACRANIAL ABNORMALITY SEEN CT chest, abdomen, pelvis, 12/23/2024: 1. No CT evidence of an acute chest, abdominal/pelvic process. Hepatic steatosis. Trace possible sliding hiatal hernia 2. No CT evidence of bowel obstruction EGD, 12/17/2024: 1. Patient had a 1 cm sliding-type hiatal hernia with grade A to B linear erosive esophagitis 2. Moderate gastritis with some hyperemia erythema Past Medical History Hypertension, diabetes, obesity Past Surgical History Right shoulder surgery, hysterectomy Family History: Chronic obstructive pulmonary disease G8 MOTHER FH: CHF (congestive heart failure) G8 FATHER Family History Heart disease Social History She has no history of tobacco smoking, drug/alcohol abuse Allergies: Coded Allergies: NO KNOWN ALLERGIES (Unverified , 12/13/24) Home Meds Reported Medications Sertraline Hcl (Sertraline Hcl) 50 Mg Tab, 1 TAB PO DAILY, #30 TAB 5 Refills 12/13/24 Rosuvastatin Calcium (Crestor) 10 Mg Tab, 1 TAB PO DAILY, #30 TAB 5 Refills 12/13/24 Metformin Hydrochloride (Metformin Hcl Er) 500 Mg Tab, 1 TAB PO DAILY, #90 TAB 3 Refills 12/13/24 Estradiol (Estradiol) 1 Mg Tab, 1 MG PO, TAB 12/13/24 Ondansetron Odt 4MG Tab (ZOFRAN PO) 4 Mg Tb, 4 MG PO, TAB ODT TAB-DISSOLVE IN MOUTH, THEN SWALLOW 12/13/24 Amoxicillin & Pot Clavulanate (AUGMENTIN TABLET) 875 Mg Tb, 875 MG PO BID, TAB 12/13/24 Benazepril Hcl (Benazepril Hcl) 10 Mg Tab, 1 TAB PO DAILY, #30 TAB 5 Refills 12/13/24 Current Medications Current Medications Medications (Trade) Dose Ordered Sig/Jimmy Route PRN Reason Start Time Stop Time Status Last Admin Potassium Chloride 100 ml @ 50 mls/hr Q2H IV 12/25/24 08:45 12/25/24 09:59 DC Trazodone HCl (Desyrel) 50 mg HS PO 12/25/24 22:00 Hydroxyzine Pamoate (Vistaril Oral) 25 mg TID PRN PO ANXIETY 12/25/24 13:15 12/25/24 18:14 Amino Acids 0 ml @ 0 mls/hr PER PHARMACY IV 12/25/24 18:00 Diagnostic Test (Pha) (Accu-Chek Comfort Curve T) 1 strip Q6HR 12/26/24 00:00 Insulin Human Regular (InsuLIN R) FOLLOW SLIDING SCALE Q6HR SC 12/26/24 00:00 Dextrose 50 ml UD IV 12/25/24 18:30 Review of Systems As above, the other systems are negative Vital Signs Vital Signs Date Time Temp Pulse Resp B/P (MAP) Pulse Ox O2 Delivery O2 Flow Rate FiO2 12/25/24 17:48 98.5 85 17 146/48 (80) 95 98.5 12/25/24 08:00 Room Air* 0 21 Physical Exam GENERAL EXAM: General: the patient is well developed and nourished. No acute distress. HEENT: Normocephalic, neck is supple, no carotid bruits. No mass. The throat is Mallampati grade RESPIRATORY: Normal respiratory effort with symmetrical lung expansion. Lungs clear to auscultation. CARDIOVASCULAR: Regular rate and rhythm with no murmurs. S1, S2. ABDOMEN: Soft, normal bowel sound, diffuse tenderness to palpation NEUROLOGICAL: MENTAL STATUS: Awake and alert. Oriented to person, SPEECH, LANGUAGE, HIGHER CORTICAL FUNCTION: no aphasia or dysathria. CRANIAL NERVES: #2: Intact visual cárdenas to confrontation. The optic discs were sharp.. #3,4,6: Pupils are equal, round and reactive. EOMs full and conjugate. Mild bilateral gaze evoked nystagmus. #5: Facial sensation intact in all three divisions bilaterally. Mandibular strength intact. #7: Facial muscles symmetrical and strength intact. #8: Hearing grossly normal to voice. #9,10: Uvula and soft palate rise in the midline. Swallow and voice are normal. #11: Trapezius and sternomastoid strength intact bilaterally. #12: Tongue midline. No fasciculations or atrophy. SENSATION: Sensation to touch and pinprick is normal. MOTOR: Normal tone in the upper and lower extremity. Normal muscle bulk. No fasciculations. No abnormal movements or posturing. Muscle strength of the major groups in the upper extremities is 5/5. Muscle strength of the major groups in the lower extremities is 5/5. REFLEXES: Deep tendon reflexes are symmetrical. No pathological reflexes. CEREBELLAR/COORDINATION: Finger to nose is normal bilaterally. GAIT/STATION: deferred. Labs/Diagnostic Data Labs Test 12/25/24 17:26 12/25/24 14:35 12/25/24 04:47 12/24/24 07:38 Range/Units POC Glucose 171 H 70-106 mg/dl Blood Gas Specimen Type Venous Blood Gas Sample Site Vbg - n/a Blood Gas Patient Temperature 37.0 Arterial Blood Date Drawn [id number] Napoleon Test N/a Venous Blood pH 7.445 H 7.320-7.430 Venous Blood pCO2 at Patient Temp 32.7 L 38.0-54.0 mmHg Venous Blood pO2 at Patient Temp 38.8 23.0-48.0 mmHg Venous Blood HCO3 22.0 22.0-29.0 mmol/L Venous Blood Base Excess -1.2 -2.0-3.0 mmol/L Blood Gas Modality Room air FiO2 % 21.0 White Blood Count 7.9 4.4-10.8 10^3/uL Red Blood Count 4.09 4.0-5.20 10^6/uL Hemoglobin 12.4 12.2-16.2 g/dL Hematocrit 36.5 36.0-46.0 % Mean Corpuscular Volume 89.2 80.0-100.0 fL Mean Corpuscular Hemoglobin 30.2 28.0-32.0 pg Mean Corpuscular Hemoglobin Concent 33.9 32.0-36.0 g/dL Red Cell Distribution Width 15.0 H 11.8-14.3 % Platelet Count 253 140-450 10^3/uL Mean Platelet Volume 8.4 6.9-10.8 fL Neutrophils (%) (Auto) 62.1 37.0-80.0 % Lymphocytes (%) (Auto) 27.0 10.0-50.0 % Monocytes (%) (Auto) 8.6 0.0-12.0 % Eosinophils (%) (Auto) 1.7 0.0-7.0 % Basophils (%) (Auto) 0.6 0.0-2.0 % Neutrophils # (Auto) 4.9 1.6-8.6 10 ^3/uL Lymphocytes # (Auto) 2.1 0.4-5.4 10 ^3/uL Monocytes # (Auto) 0.7 0-1.3 10 ^3/uL Eosinophils # (Auto) 0.1 0-0.8 10 ^3/uL Basophils # (Auto) 0 0-0.2 10 ^3/uL Nucleated Red Blood Cells 0.1 % Sodium Level 138 136-145 mmol/L Potassium Level 3.1 L 3.5-5.1 mmol/L Chloride Level 104 98-107 mmol/L Carbon Dioxide Level 21 20-31 mmol/L Anion Gap 13 5-15 Blood Urea Nitrogen < 5 L 9-23 mg/dL Creatinine 0.57 0.550-1.02 mg/dL Glomerular Filtration Rate Calc 95 >90 mL/min BUN/Creatinine Ratio 8.8 L 10.0-20.0 Serum Glucose 201 H 74-106 mg/dL Calcium Level 9.1 8.7-10.4 mg/dL Phosphorus Level 3.5 2.4-5.1 mg/dL Magnesium Level 1.7 1.6-2.6 mg/dL Total Bilirubin 0.6 0.2-1.0 mg/dL Aspartate Amino Transferase (AST) 31 13-40 U/L Alanine Aminotransferase (ALT) 20 7-40 U/L Alkaline Phosphatase 68 46-116 U/L Ammonia 23 11-32 umol/L Total Protein 5.9 5.7-8.2 g/dL Albumin 3.6 3.2-4.8 g/dL Thyroid Stimulating Hormone (TSH) 2.41 0.55-4.78 uIU/mL Treponema pallidum Antibody Non-reactive Negative Erythrocyte Sedimentation Rate 8 0-20 mm/hr Immunoglobulin A 98 64-422 mg/dL Test 12/17/24 05:00 12/14/24 11:19 12/13/24 11:19 Range/Units Prothrombin Time 11.3 9.3-11.8 sec Prothrombin Time INR 1.07 0.9-1.15 Stool for White Cells None seen Urine Color Light-orange Yellow Urine Clarity Ex.turbid Clear Urine pH 6.0 5.0-9.0 Urine Specific Roff 1.014 1.001-1.035 Urine Protein 1+ H Negative Urine Ketones 1+ H Negative Urine Blood 2+ H Negative /uL Urine Nitrite Negative Negative Urine Bilirubin Negative Negative Urine Urobilinogen Normal Negative mg/dL Urine Leukocyte Esterase 3+ Negative /uL Urine RBC 58 0 - 4 /hpf Urine WBC Clumps Present None Seen /hpf Urine Microscopic WBC 1231 H 0-5 /HPF Urine Squamous Epithelial Cells Few <5 /hpf Urine Bacteria None seen None Seen /hpf Urine Mucus Few None Seen Urine Glucose Normal Normal mg/dL Microbiology Date/Time Source Procedure Growth Status 12/16/24 01:30 Urine - Midstream Clean Catch Urine Culture - Final Complete 12/14/24 13:11 Blood Blood Culture - Final NO GROWTH AFTER 5 DAYS OF INCUBATION. Complete 12/14/24 11:39 Nose MRSA Screen - Final Methicillin Resistant S.aureus Complete 12/14/24 11:19 Stool Stool Culture - Final Complete 12/14/24 11:19 Stool Shiga Toxin I & II - Final Complete 12/14/24 11:19 Stool Clostridium difficile Toxin Assay - Final Complete Assessment Altered mental status Metabolic encephalopathy Hospital delirium Urinary tract infection Gastritis Sepsis Plan/Recommendation Monitoring Supportive treatment EEG MRI brain scan IV antibiotics Avoid benzodiazepine, Benadryl if possible Haldol for agitation Okay to use trazodone for insomnia Up to chair Physical therapy More recommendation per clinical course Progress: Poor This medical document was created using an electronic medical record system with [employer] dictation system. Although this document has been carefully reviewed, there may still be some phonetic and typographical errors. These areas are purely typographical due to imperfections of the software programs, and do not reflect any compromise in the patient's medical care. Plan discussed with: Spouse, Other LYDIA ORONA MD Dec 25, 2024 21:26
[2024-12-25] MEDS ORDERED: LORazepam 2MG/ML-1ML VIAL IV PRN (22:15)
[2024-12-25] MEDS: HALOPERIDOL LACTATE 5 MG/ML INJ VIAL IM PRN (23:16)
[2024-12-26] MEDS: InsuLIN REG 1unit/0.01ml Soln (100units/ml) SC SCH (00:25)
[2024-12-26] MEDS: ACCU-CHEK COMFORT CURVE STRIP VI SCH (00:26)
[2024-12-26 01:00] VITALS: BP 132/71; PULSE 99; RESP 19; TEMP 97.3; O2SAT 96
[2024-12-26 05:00] VITALS: BP 134/69; PULSE 94; RESP 18; TEMP 97.4; O2SAT 96
[2024-12-26 05:46] LABS: Hematocrit 33.4 % (36.0-46.0); Hemoglobin 11.3 g/dL (12.2-16.2); Mean Corpuscular Hemoglobin 30.2 pg (28.0-32.0); Mean Corpuscular Volume 89.5 fL (80.0-100.0); Nucleated Red Blood Cells % 0.2 %
[2024-12-26 06:05] LABS: Alanine Aminotransferase 17 U/L (7-40); Albumin 3.2 g/dL (3.2-4.8); Alkaline Phosphatase 60 U/L (46-116); Anion Gap 12 (5-15); Calcium 9.0 mg/dL (8.7-10.4); Carbon Dioxide 23 mmol/L (20-31); Chloride 106 mmol/L (98-107); Sodium 141 mmol/L (136-145)
[2024-12-26 06:06] LABS: Bilirubin, Total 0.6 mg/dL (0.2-1.0)
[2024-12-26 06:11] LABS: BUN/Creatinine Ratio 7.6 (10.0-20.0); Blood Urea Nitrogen < 5 mg/dL (9-23); Glucose 162 mg/dL (74-106); Magnesium 1.5 mg/dL (1.6-2.6); Potassium 3.1 mmol/L (3.5-5.1); Total Protein 5.3 g/dL (5.7-8.2)
[2024-12-26 08:00] VITALS: PULSE 97; RESP 19; O2SAT 96
[2024-12-26 09:19] LABS: INR 1.14 (0.9-1.15); Partial Thromboplastin Time 28.8 SEC (24.5-34.5); Prothrombin Time 11.9 sec (9.3-11.8)
[2024-12-26 09:30] VITALS: BP 117/73; PULSE 108; RESP 18; TEMP 97.8; O2SAT 97
--- NOTE | 2024-12-26 11:25 | DVHPN2 ---
Progress Note Date Seen: Dec 26, 2024 Resident Creating Document: EKATERINA CRUZ RESIDENT Medical Necessity Reason Pt with a Central, PICC or Fol: Yes Subjective Review of Systems 74-year-old female with past medical history of type 2 diabetes, hysterectomy, laminectomy, who originally came for nausea, vomiting and diarrhea that has been ongoing for the last 1 month, initially patient was hospitalized at [facility] for 2 weeks where the workup was largely unremarkable and patient was discharged. Patient subsequently moved to [facility] with her daughter, her daughter brought her to the [facility] for similar symptoms. Per patient's daughter at bedside, patient had undergone a stool test which had initially shown norovirus and subsequently was negative. Patient seen and examined at bedside Continues to remain unable to tolerate p.o. intake No further diarrhea, however no further oral intake either Overnight episodes of delirium, currently AO x1, same as yesterday Continues to have nausea Pending MRI Scheduled to undergo lumbar puncture today Objective vital signs Vital Sign Date Time Temp Pulse Resp B/P (MAP) Pulse Ox O2 Delivery O2 Flow Rate FiO2 12/26/24 09:30 97.8 108 18 117/73 (88) 97 97.8 12/26/24 08:00 Room Air* 0 21 Total Intake and Output 12/25/24 12/25/24 12/26/24 15:00 23:00 07:00 Intake Total 450 ml 500 ml Balance 450 ml 500 ml medications Current Medications Medications Dose Ordered Sig/Jimmy Route Start Time Stop Time Status Last Admin Dose Admin Ondansetron HCl 4 mg Q4HP PRN IV 12/13/24 15:45 12/25/24 10:05 4 MG Docusate Sodium 100 mg BIDPRN PRN PO 12/13/24 15:45 Nitroglycerin 0.4 mg Q5MINP PRN SL 12/13/24 15:45 Linezolid 300 ml @ 150 mls/hr Q12HR IV 12/16/24 10:00 12/26/24 00:11 150 MLS/HR Diphenhydramine HCl 25 mg Q6HP PRN IV 12/16/24 10:15 12/26/24 00:31 25 MG Benazepril HCl 10 mg DAILY PO 12/18/24 10:00 12/26/24 09:06 10 MG Amlodipine Besylate 5 mg DAILY PO 12/18/24 10:00 UNV Loperamide HCl 2 mg PRN PRN PO 12/19/24 09:45 12/23/24 09:55 2 MG Pantoprazole Sodium 40 mg BID IV 12/19/24 22:00 12/26/24 09:05 40 MG Metoclopramide HCl 5 mg Q8HR IV 12/20/24 14:00 12/26/24 05:55 5 MG Amino Acids/ Electrolytes/ Dextrose 1,000 ml @ 41 mls/hr DAILY@2200 IV 12/23/24 22:00 12/26/24 21:59 12/25/24 21:46 41 MLS/HR Ceftriaxone Sodium/Dextrose 50 ml @ 50 mls/hr DAILY IV 12/24/24 17:39 12/26/24 09:06 50 MLS/HR Doxycycline Hyclate 100 ml @ 50 mls/hr Q12HR IV 12/24/24 18:30 12/26/24 10:00 50 MLS/HR Trazodone HCl 50 mg HS PO 12/25/24 22:00 12/25/24 21:46 50 MG Hydroxyzine Pamoate 25 mg TID PRN PO 12/25/24 13:15 12/25/24 18:14 25 MG Amino Acids 0 ml @ 0 mls/hr PER PHARMACY IV 12/25/24 18:00 Diagnostic Test (Pha) 1 strip Q6HR 12/26/24 00:00 12/26/24 05:53 1 STRIP Insulin Human Regular FOLLOW SLIDING SCALE Q6HR SC 12/26/24 00:00 12/26/24 05:53 2 UNITS Dextrose 50 ml UD IV 12/25/24 18:30 Lorazepam 1 mg ONCE PRN IV 12/25/24 22:15 Haloperidol Lactate 2 mg Q8HP PRN IM 12/25/24 22:15 12/25/24 23:16 2 MG Examination General Appearance: Cooperative. Well developed. Well nourished. NAD Head Exam: Normal inspection Neck Exam: Normal inspection. Non-tender. Normal alignment Pulmonary/Respiratory: Chest non-tender. Clear bilateral breath sounds, no crackles, no wheezing. Cardiovascular/Chest: Regular rate and rhythm. No murmurs. No JVD. Peripheral Pulses: (L). 2+ Pedal (R). 2+ Pedal (L) Abdominal Exam: Normal bowel sounds. Soft. normal abdomen, no visible veins, Nontender. No hepatospenomegaly. No masses Ankle Exam: Negative ankle edema Lower extremities: Negative lower extremity edema. Fading dusky rash noted on bilateral lower extremities Skin Exam: Normal inspection. Normal color. Warm. Dry laboratory and microbiology Laboratory Tests 12/26/24 04:52 Test 12/26/24 04:52 Range/Units Serum Glucose 162 H 74-106 mg/dL Microbiology Date/Time Source Procedure Growth Status 12/16/24 01:30 Urine - Midstream Clean Catch Urine Culture - Final Complete 12/14/24 13:11 Blood Blood Culture - Final NO GROWTH AFTER 5 DAYS OF INCUBATION. Complete 12/14/24 11:39 Nose MRSA Screen - Final Methicillin Resistant S.aureus Complete 12/14/24 11:19 Stool Stool Culture - Final Complete 12/14/24 11:19 Stool Shiga Toxin I & II - Final Complete 12/14/24 11:19 Stool Clostridium difficile Toxin Assay - Final Complete Labs and/or images reviewed: Labs reviewed by me, Image(s) reviewed by me Problem List/Assessment/Plan Problem List/Assessment/Plan Intractable nausea and vomiting Viral gastroenteritis Maculopapular rash, improving GERD, erosive esophagitis Metabolic versus toxic encephalopathy Hiatal hernia Acute complicated UTI Plan: Continue supportive care Continue Clinimix IV Protonix 40 mg b.i.d. Metoclopramide IV Q 8 hours with plans to taper over the next couple of days Neurological evaluation recommended Patient will benefit from psychiatric evaluation We will consider colonoscopy once patient is neurologically and medically stable, possibly later this week Thank you so much for the opportunity to consult on your patient. GI team will follow the patient. In case of any questions or concerns please feel free to reach out. Plan discussed with Dr. Magana Plan discussed with: Other (RN) Dietary Evaluation Review Comments: 1) Encourage optimal PO intake 2) Advance to 60g CCHO diet when medically feasible 3) Refer to outpatient RD/CDCES for weight management 4) Follow-up with gastroenterology 5) Continue to monitor I&O, labs, and skin integrity Expected Outcomes/Goals: 1) appetite and labs to improve 2) diet to advance 3) gradual wt loss 4) f/u in 3-5 days EKATERINA CRUZ Dec 26, 2024 11:25
[2024-12-26] MEDS ORDERED: POTASSIUM CHL 20MEQ/100ML 100 ML IV SCH (12:15)
[2024-12-26] MEDS: LORazepam 2MG/ML-1ML VIAL IV ONE (12:55)
[2024-12-26] MEDS ORDERED: MAGNESIUM SULFATE 1GM/100ML 100 ML IV SCH (13:00)
[2024-12-26] MEDS: LIDOCAINE 1% (LOCAL ANESTH.) PF 5ml SDV ID ONE (14:00)
[2024-12-26] MEDS: POTASSIUM EFFERVESENT TAB 25 MEQ PO ONE (15:50)
--- NOTE | 2024-12-26 16:18 | DVHPN2 ---
Subjective Patient is seen at bedside, per family patient is altered mentation from baseline Reviewed: Care Plan, H&P, Labs, Medications, Previous Orders, Radiology Changes from previous H/P or p: No Changes General: Per HPI Eyes: No Pain, No Vision change, No Conjunctivae inflammation, No Eyelid inflammation, No Other, No Redness ENT: No Ear pain, No Ear discharge, No Nose pain, No Nose discharge, No Nose congestion, No Mouth pain, No Mouth swelling, No Throat pain, No Throat swelling, No Other Cardiovascular: No Chest Pain, No Palpitations, No Orthopnea, No Paroxysmal Noc. Dyspnea, No Edema, No Lt Headedness, No Other Respiratory: No Cough, No Dry, No Shortness of breath, No SOB with excertion, No Wheezing, No Hemoptysis, No Pleuritic Pain, No Sputum, No Other Gastrointestinal: Nausea, Vomiting, Abdominal Pain, Diarrhea; No Constipation, No Melena, No Hematochezia, No Other Genitourinary: No Dysuria, No Frequency, No Incontinence, No Hematuria, No Retention, No Other Musculoskeletal: No other, No neck pain, No shoulder pain, No arm pain, No back pain, No hand pain, No leg pain, No foot pain Skin: No Rash, No Lesions, No Jaundice, No Bruising, No Other Objective Vitals Vital Signs Date Time Temp Pulse Resp B/P (MAP) Pulse Ox O2 Delivery O2 Flow Rate FiO2 12/26/24 09:30 97.8 108 18 117/73 (88) 97 97.8 12/26/24 08:00 Room Air* 0 21 Intake/Output Intake and Output 12/26/24 07:00 Intake Total 950 ml Balance 950 ml Intake Oral 400 ml IV Total 100 ml Other 450 ml # Voids 11 Exam GEN: Awake alert, inappropriate conversations HEENT: NC/AT; MMM. CV: RRR, no m/r/g. LUNGS: CTAB, no w/r/c. ABD: Soft, NT/ND, NBS, no masses or organomegaly. EXT: skin Warm, well perfused. no rashes. No clubbing, cyanosis, or edema. NEURO: No focal deficits. Patient following commands minimally, awake and alert. inappropriate laughter. General Appearance: Alert, Oriented X3, Cooperative, No acute distress, mild distress, moderate distress, severe distress, Other Lungs: Clear to auscultation, Normal air movement, Other Cardiovascular: Regular rate, Normal S1, Normal S2, No murmurs, Gallops, Rubs, Other Abdomen: Normal bowel sounds, Soft, No tenderness, No hepatospenomegaly, No masses, Other Medications Current Medications Medications Dose Ordered Sig/Jimmy Route Start Time Stop Time Status Last Admin Dose Admin Ondansetron HCl 4 mg Q4HP PRN IV 12/13/24 15:45 12/25/24 10:05 4 MG Docusate Sodium 100 mg BIDPRN PRN PO 12/13/24 15:45 Nitroglycerin 0.4 mg Q5MINP PRN SL 12/13/24 15:45 Linezolid 300 ml @ 150 mls/hr Q12HR IV 12/16/24 10:00 12/26/24 12:21 150 MLS/HR Diphenhydramine HCl 25 mg Q6HP PRN IV 12/16/24 10:15 12/26/24 00:31 25 MG Benazepril HCl 10 mg DAILY PO 12/18/24 10:00 12/26/24 09:06 10 MG Amlodipine Besylate 5 mg DAILY PO 12/18/24 10:00 UNV Loperamide HCl 2 mg PRN PRN PO 12/19/24 09:45 12/23/24 09:55 2 MG Pantoprazole Sodium 40 mg BID IV 12/19/24 22:00 12/26/24 09:05 40 MG Metoclopramide HCl 5 mg Q8HR IV 12/20/24 14:00 12/26/24 15:50 5 MG Amino Acids/ Electrolytes/ Dextrose 1,000 ml @ 41 mls/hr DAILY@2200 IV 12/23/24 22:00 12/27/24 21:59 12/25/24 21:46 41 MLS/HR Ceftriaxone Sodium/Dextrose 50 ml @ 50 mls/hr DAILY IV 12/24/24 17:39 12/26/24 09:06 50 MLS/HR Doxycycline Hyclate 100 ml @ 50 mls/hr Q12HR IV 12/24/24 18:30 12/26/24 10:00 50 MLS/HR Trazodone HCl 50 mg HS PO 12/25/24 22:00 12/25/24 21:46 50 MG Hydroxyzine Pamoate 25 mg TID PRN PO 12/25/24 13:15 12/25/24 18:14 25 MG Amino Acids 0 ml @ 0 mls/hr PER PHARMACY IV 12/25/24 18:00 Diagnostic Test (Pha) 1 strip Q6HR 12/26/24 00:00 12/26/24 12:27 1 STRIP Insulin Human Regular FOLLOW SLIDING SCALE Q6HR SC 12/26/24 00:00 12/26/24 12:27 4 UNITS Dextrose 50 ml UD IV 12/25/24 18:30 Lorazepam 1 mg ONCE PRN IV 12/25/24 22:15 Haloperidol Lactate 2 mg Q8HP PRN IM 12/25/24 22:15 12/25/24 23:16 2 MG Magnesium Sulfate/ Dextrose 100 ml @ 100 mls/hr Q1HR IV 12/26/24 13:00 12/26/24 14:59 UNV Potassium Chloride 100 ml @ 50 mls/hr Q2H IV 12/26/24 12:15 12/26/24 16:14 UNV Sodium Chloride 10 ml QSHIFT@10,22 IV 12/26/24 22:00 Laboratory Results Laboratory Tests 12/26/24 04:52 Chemistry Test 12/26/24 04:52 Albumin 3.2 g/dL (3.2-4.8) Calcium Level 9.0 mg/dL (8.7-10.4) Magnesium Level 1.5 mg/dL (1.6-2.6) L Phosphorus Level 3.5 mg/dL (2.4-5.1) Total Protein 5.3 g/dL (5.7-8.2) L Coagulation Test 12/26/24 04:52 Prothrombin Time 11.9 sec (9.3-11.8) H Prothrombin Time INR 1.14 (0.9-1.15) Activated Partial Thromboplast Time 28.8 SEC (24.5-34.5) LFT Test 12/26/24 04:52 Alanine Aminotransferase (ALT) 17 U/L (7-40) Alkaline Phosphatase 60 U/L (46-116) Aspartate Amino Transferase (AST) 30 U/L (13-40) Total Bilirubin 0.6 mg/dL (0.2-1.0) Urinalysis Test 12/13/24 11:19 Urine Color Light-orange (Yellow) Urine Clarity Ex.turbid (Clear) Urine pH 6.0 (5.0-9.0) Urine Specific [place] 1.014 (1.001-1.035) Urine Protein 1+ (Negative) H Urine Ketones 1+ (Negative) H Urine Blood 2+ /uL (Negative) H Urine Nitrite Negative (Negative) Urine Bilirubin Negative (Negative) Urine Urobilinogen Normal mg/dL (Negative) Urine Leukocyte Esterase 3+ /uL (Negative) Urine RBC 58 /hpf (0 - 4) Urine WBC Clumps Present /hpf (None Seen) Urine Microscopic WBC 1231 /HPF (0-5) H Urine Squamous Epithelial Cells Few /hpf (<5) Urine Bacteria None seen /hpf (None Seen) Urine Mucus Few (None Seen) Urine Glucose Normal mg/dL (Normal) Microbiology Microbiology Date/Time Source Procedure Growth Status 12/16/24 01:30 Urine - Midstream Clean Catch Urine Culture - Final Complete 12/14/24 13:11 Blood Blood Culture - Final NO GROWTH AFTER 5 DAYS OF INCUBATION. Complete 12/14/24 11:39 Nose MRSA Screen - Final Methicillin Resistant S.aureus Complete 12/14/24 11:19 Stool Stool Culture - Final Complete 12/14/24 11:19 Stool Shiga Toxin I & II - Final Complete 12/14/24 11:19 Stool Clostridium difficile Toxin Assay - Final Complete Labs and/or images reviewed: Labs reviewed by me, Image(s) reviewed by me Assessment/Plan Assessment/Plan 12/24: Taking case up after Dr. Muhammad. Patient is family members or complaining of acute mental status change, patient is awake alert but inappropriately laughing. Neurology has been consulted. She is being treated for UTI, continues to have diarrhea since she returned from vacation. Neurology is consulted, we will increase ceftriaxone to meningitis dose, neurology is consulted need LP HSV versus RPR. We will follow and may need to repeat CT head as well and/or MRI defer to Neurology. GI has done EGD finding gastritis and hiatal hernia. Dressed for RPR treponemal, ammonia, ABG, continue test CBC CMP. Continuing to follow up daily exam is neuro checks. Neurology eval pending. May need repeat CT head. We will add 2 g ceftriaxone to linezolid and doxycycline. We will likely need LP. 12/25: Patient remains confused. No inappropriate laughter today. Neurology consult was entered and inappropriately, and has been face and neurology is supposed to see patient today. Continuing treatment for UTI and gastroenteritis. Ceftriaxone 2 g, and linezolid UTI. Adding doxycycline for coverage of atypical organisms. Pending CSF, likely tomorrow. Note no MRI done only CT. Head CT was negative. Symptoms are not typical of MS, defer to Neurology whether patient needs MRI with or without contrast. Ammonia and treponemal test are negative. VBG is unconcerning for hypercarbia. 12/26: Patient remains confused, although no further worsening. Patient is more sleepy today. Tested for HIV today waiting for results. Neurology has seen as ordered MRI without contrast, continuing IV antibiotics. Pending LP but need neurology agreement,. We will continue monitoring. Diagnosis: Acute toxic metabolic encephalopathy Sepsis due to below Acute complicated UTI, due to E coli and Enterococcus faecalis Acute abdominal pain Intractable nausea Intractable diarrhea Gastroenteritis, possible, infectious etiology likely, Status post endoscopy Moderate gastritis Sliding-type hiatal hernia Grade B esophagitis Diverticulosis without diverticulitis Type 2 diabetes Hypokalemia, Acute intravascular volume depletion MRSA nares History of lumbar surgery Plan : IV antibiotics Rocephin 2 g daily, Zyvox 600 IV twice daily , doxycycline 100 IV b.i.d. Prn analgesia Continuous IV fluids Replete potassium as needed goal K more than 3.5 Neurology consult Radiology consult for LP GI consult appreciate following PT ordered Nutrition Clinimix per pharmacy Midline Med surge Full code Plan discussed with: Daughter My Orders Orders - CHAVA SYLVESTER MD Procedure Category Date Status Time Csf Cell Count & Diff LAB 12/25/24 Logged 16:39 Csf Hsv1/2 Dna Pcr LAB 12/25/24 Logged 16:39 Glucose, Csf LAB 12/25/24 Logged 16:39 Protein, Csf LAB 12/25/24 Logged 16:39 Vdrl, Cererbrospinal LAB 12/25/24 Logged Fluid 16:39 Tpn Per Pharmacy PHA 12/25/24 In Process 18:00 Glucose Blood PHA 12/26/24 In Process (Accu-Chek Comfort 00:00 Insulin R (Human) PHA 12/26/24 In Process (Insulin R) 00:00 Dextrose 50% Syringe PHA 12/25/24 In Process 18:30 Tpn Per Pharmacy VIK 12/25/24 In Process 22:00 Pureed DIET 12/26/24 Transmitted Dinner Comprehensive LAB 12/27/24 Verified Metabolic Panel 05:00 Magnesium LAB 12/27/24 Verified 05:00 Phosphorus LAB 12/27/24 Verified 05:00 Triglycerides LAB 12/27/24 Verified 05:00 Tpn Per Pharmacy [facility] 12/26/24 In Process 22:00 Us Guided Vascular US 12/26/24 Logged Access 13:54 Nursing Protocol Picc [facility] 12/26/24 In Process 13:54 Change Dressing Prn [facility] 12/26/24 In Process 13:54 Sodium Chloride Lock PHA 12/26/24 In Process (Saline Lock Ns) 22:00 Do Not Use Picc For [facility] 12/26/24 In Process Blood Cult 13:54 May Draw Blood From [facility] 12/26/24 In Process Picc 13:54 Ok To Use Picc [facility] 12/26/24 In Process 13:54 Change Picc Dressing [facility] 12/26/24 In Process Q7 Days 13:54 Date of Service: Dec 26, 2024 Billing Provider: CHAVA SYLVESTER MD Common Visit Codes: [id number] INP/OBS CARE(HIGH) CHAVA SYLVESTER MD Dec 26, 2024 16:17
[2024-12-26] MEDS: MAGNESIUM SULFATE 1GM/100ML 100 ML IV ONE (17:22)
[2024-12-26] MEDS: THIAMINE 100mg/ml INJ (200mg/2ml VIAL) IV SCH (18:12)
[2024-12-26 20:00] VITALS: PULSE 88; RESP 18; O2SAT 95
[2024-12-26 20:37] VITALS: BP 114/86; PULSE 96; RESP 17; TEMP 99.5; O2SAT 97
[2024-12-26] MEDS: SODIUM CHLOR 0.9% PF (SALINE LOCK) 10ML VIAL/SYR IV SCH (22:10)
[2024-12-27 02:08] VITALS: BP 138/57; PULSE 105; RESP 18; TEMP 98.7; O2SAT 92
[2024-12-27 05:00] VITALS: BP 153/85; PULSE 101; RESP 16; TEMP 97.7; O2SAT 96
[2024-12-27 06:59] LABS: Alanine Aminotransferase 15 U/L (7-40); Alkaline Phosphatase 60 U/L (46-116); Anion Gap 11 (5-15); Calcium 8.9 mg/dL (8.7-10.4); Carbon Dioxide 26 mmol/L (20-31); Chloride 107 mmol/L (98-107); Magnesium 1.8 mg/dL (1.6-2.6); Sodium 144 mmol/L (136-145)
[2024-12-27 07:00] LABS: Bilirubin, Total 0.5 mg/dL (0.2-1.0)
[2024-12-27 07:09] LABS: Albumin 3.2 g/dL (3.2-4.8); BUN/Creatinine Ratio 8.8 (10.0-20.0); Blood Urea Nitrogen < 5 mg/dL (9-23); Glucose 130 mg/dL (74-106); Potassium 2.8 mmol/L (3.5-5.1); Total Protein 5.3 g/dL (5.7-8.2)
[2024-12-27 07:37] LABS: Triglycerides 101 mg/dL (< 150)
[2024-12-27] MEDS ORDERED: POTASSIUM CHL 20MEQ/100ML 100 ML IV SCH (09:00)
[2024-12-27] MEDS ORDERED: HYDROcodone-ACET 10/325MG TAB PO PRN (09:00)
[2024-12-27] MEDS: MORPHINE SULFATE INJ 2 MG/ml SYRG IV PRN (09:22)
[2024-12-27 09:52] VITALS: BP 144/75; PULSE 99; RESP 18
--- NOTE | 2024-12-27 11:24 | DVHPN2 ---
Progress Note Date Seen: Dec 27, 2024 Resident Creating Document: EKATERINA CRUZ RESIDENT Medical Necessity Reason Pt with a Central, PICC or Fol: Yes Subjective Review of Systems 74-year-old female with past medical history of type 2 diabetes, hysterectomy, laminectomy, who originally came for nausea, vomiting and diarrhea that has been ongoing for the last 1 month, initially patient was hospitalized at [facility] for 2 weeks where the workup was largely unremarkable and patient was discharged. Patient subsequently moved to [facility] with her daughter, her daughter brought her to the [facility] for similar symptoms. Per patient's daughter at bedside, patient had undergone a stool test which had initially shown norovirus and subsequently was negative. Patient seen and examined at bedside Continues to remain unable to tolerate p.o. intake No further diarrhea, however no further oral intake either Overnight episodes of delirium, currently AO x1, same as yesterday Continues to have nausea Endomysial IgA negative Unable to complete MRI owing to the presence of loop recorder monitor Objective vital signs Vital Sign Date Time Temp Pulse Resp B/P (MAP) Pulse Ox O2 Delivery O2 Flow Rate FiO2 12/27/24 09:52 99 18 144/75 12/27/24 05:00 97.7 96 97.7 12/26/24 20:00 Room Air* 0 21 Total Intake and Output 12/26/24 12/26/24 12/27/24 15:00 23:00 07:00 Intake Total 100 ml 400 ml Balance 100 ml 400 ml medications Current Medications Medications Dose Ordered Sig/Jimmy Route Start Time Stop Time Status Last Admin Dose Admin Ondansetron HCl 4 mg Q4HP PRN IV 12/13/24 15:45 12/25/24 10:05 4 MG Docusate Sodium 100 mg BIDPRN PRN PO 12/13/24 15:45 Nitroglycerin 0.4 mg Q5MINP PRN SL 12/13/24 15:45 Linezolid 300 ml @ 150 mls/hr Q12HR IV 12/16/24 10:00 12/27/24 10:22 150 MLS/HR Diphenhydramine HCl 25 mg Q6HP PRN IV 12/16/24 10:15 12/26/24 00:31 25 MG Benazepril HCl 10 mg DAILY PO 12/18/24 10:00 12/26/24 09:06 10 MG Amlodipine Besylate 5 mg DAILY PO 12/18/24 10:00 UNV Loperamide HCl 2 mg PRN PRN PO 12/19/24 09:45 12/23/24 09:55 2 MG Pantoprazole Sodium 40 mg BID IV 12/19/24 22:00 12/27/24 10:22 40 MG Metoclopramide HCl 5 mg Q8HR IV 12/20/24 14:00 12/27/24 06:38 5 MG Amino Acids/ Electrolytes/ Dextrose 1,000 ml @ 41 mls/hr DAILY@2200 IV 12/23/24 22:00 12/27/24 21:59 12/26/24 22:20 41 MLS/HR Ceftriaxone Sodium/Dextrose 50 ml @ 50 mls/hr DAILY IV 12/24/24 17:39 12/26/24 09:06 50 MLS/HR Doxycycline Hyclate 100 ml @ 50 mls/hr Q12HR IV 12/24/24 18:30 12/27/24 10:19 50 MLS/HR Trazodone HCl 50 mg HS PO 12/25/24 22:00 12/26/24 22:19 50 MG Hydroxyzine Pamoate 25 mg TID PRN PO 12/25/24 13:15 12/25/24 18:14 25 MG Amino Acids 0 ml @ 0 mls/hr PER PHARMACY IV 12/25/24 18:00 Diagnostic Test (Pha) 1 strip Q6HR 12/26/24 00:00 12/27/24 06:00 1 STRIP Insulin Human Regular FOLLOW SLIDING SCALE Q6HR SC 12/26/24 00:00 12/27/24 06:00 2 UNITS Dextrose 50 ml UD IV 12/25/24 18:30 Lorazepam 1 mg ONCE PRN IV 12/25/24 22:15 Haloperidol Lactate 2 mg Q8HP PRN IM 12/25/24 22:15 12/25/24 23:16 2 MG Magnesium Sulfate/ Dextrose 100 ml @ 100 mls/hr Q1HR IV 12/26/24 13:00 12/26/24 14:59 UNV Potassium Chloride 100 ml @ 50 mls/hr Q2H IV 12/26/24 12:15 12/26/24 16:14 UNV Sodium Chloride 10 ml QSHIFT@10,22 IV 12/26/24 22:00 12/27/24 10:23 10 ML Thiamine HCl 100 mg DAILY IV 12/26/24 16:45 01/05/25 16:44 12/27/24 10:22 100 MG Potassium Chloride 100 ml @ 50 mls/hr Q2H IV 12/27/24 09:00 12/27/24 14:59 Morphine Sulfate 2 mg Q6HPRN PRN IV 12/27/24 09:00 12/27/24 09:22 2 MG Acetaminophen/ Hydrocodone Bitart 1 tab Q6HP PRN PO 12/27/24 09:00 Examination General Appearance: Cooperative. Well developed. Well nourished. NAD Head Exam: Normal inspection Neck Exam: Normal inspection. Non-tender. Normal alignment Pulmonary/Respiratory: Chest non-tender. Clear bilateral breath sounds, no crackles, no wheezing. Cardiovascular/Chest: Regular rate and rhythm. No murmurs. No JVD. Peripheral Pulses: (L). 2+ Pedal (R). 2+ Pedal (L) Abdominal Exam: Normal bowel sounds. Soft. normal abdomen, no visible veins, Nontender. No hepatospenomegaly. No masses Ankle Exam: Negative ankle edema Lower extremities: Negative lower extremity edema. Fading dusky rash noted on bilateral lower extremities Skin Exam: Normal inspection. Normal color. Warm. Dry laboratory and microbiology Laboratory Tests 12/27/24 05:00 12/26/24 04:52 Test 12/27/24 05:00 Range/Units Serum Glucose 130 H 74-106 mg/dL Microbiology Date/Time Source Procedure Growth Status 12/16/24 01:30 Urine - Midstream Clean Catch Urine Culture - Final Complete 12/14/24 13:11 Blood Blood Culture - Final NO GROWTH AFTER 5 DAYS OF INCUBATION. Complete 12/14/24 11:39 Nose MRSA Screen - Final Methicillin Resistant S.aureus Complete 12/14/24 11:19 Stool Stool Culture - Final Complete 12/14/24 11:19 Stool Shiga Toxin I & II - Final Complete 12/14/24 11:19 Stool Clostridium difficile Toxin Assay - Final Complete Labs and/or images reviewed: Labs reviewed by me, Image(s) reviewed by me Problem List/Assessment/Plan Problem List/Assessment/Plan Toxic versus metabolic encephalopathy Questionable encephalitis Intractable nausea and vomiting Viral gastroenteritis? Maculopapular rash, improving GERD, erosive esophagitis Metabolic versus toxic encephalopathy Hiatal hernia Acute complicated UTI Plan: Continue supportive care Continue Clinimix IV Protonix 40 mg b.i.d. Metoclopramide IV Q q.12 hours Neurological evaluation recommended Patient will benefit from psychiatric evaluation We will consider colonoscopy once patient is neurologically and medically stable, possibly later this week Thank you so much for the opportunity to consult on your patient. GI team will follow the patient. In case of any questions or concerns please feel free to reach out. Plan discussed with Dr. Magana Plan discussed with: Daughter, Other (RN) My Orders My Orders Orders - EKATERINA CRUZ RESIDENT Procedure Category Date Status Time Potassium Chl PHA 12/27/24 In Process 20meq/100ml 09:00 Dietary Evaluation Review Comments: 1) Encourage optimal PO intake 2) Advance to 60g CCHO diet when medically feasible 3) Refer to outpatient RD/CD[facility] for weight management 4) Follow-up with gastroenterology 5) Continue to monitor I&O, labs, and skin integrity Expected Outcomes/Goals: 1) appetite and labs to improve 2) diet to advance 3) gradual wt loss 4) f/u in 3-5 days EKATERINA CRUZ RESIDENT Dec 27, 2024 11:24
--- NOTE | 2024-12-27 16:19 | DVHDS2 ---
Discharge Summary Date of Admission Dec 13, 2024 at 15:32 Date of Discharge: Dec 27, 2024 Labs/Diagnostic Data: Laboratory Results Test 12/27/24 05:52 12/27/24 05:00 12/26/24 04:52 12/25/24 14:35 POC Glucose 154 mg/dl (70-106) Sodium Level 144 mmol/L (136-145) Potassium Level 2.8 mmol/L (3.5-5.1) Chloride Level 107 mmol/L (98-107) Carbon Dioxide Level 26 mmol/L (20-31) Anion Gap 11 (5-15) Blood Urea Nitrogen < 5 mg/dL (9-23) Creatinine 0.57 mg/dL (0.550-1.02) Glomerular Filtration Rate Calc 95 mL/min (>90) BUN/Creatinine Ratio 8.8 (10.0-20.0) Serum Glucose 130 mg/dL (74-106) Calcium Level 8.9 mg/dL (8.7-10.4) Phosphorus Level 3.0 mg/dL (2.4-5.1) Magnesium Level 1.8 mg/dL (1.6-2.6) Total Bilirubin 0.5 mg/dL (0.2-1.0) Aspartate Amino Transferase (AST) 26 U/L (13-40) Alanine Aminotransferase (ALT) 15 U/L (7-40) Alkaline Phosphatase 60 U/L (46-116) Total Protein 5.3 g/dL (5.7-8.2) Albumin 3.2 g/dL (3.2-4.8) Triglycerides Level 101 mg/dL (< 150) White Blood Count 7.0 10^3/uL (4.4-10.8) Red Blood Count 3.74 10^6/uL (4.0-5.20) Hemoglobin 11.3 g/dL (12.2-16.2) Hematocrit 33.4 % (36.0-46.0) Mean Corpuscular Volume 89.5 fL (80.0-100.0) Mean Corpuscular Hemoglobin 30.2 pg (28.0-32.0) Mean Corpuscular Hemoglobin Concent 33.8 g/dL (32.0-36.0) Red Cell Distribution Width 14.8 % (11.8-14.3) Platelet Count 217 10^3/uL (140-450) Mean Platelet Volume 7.9 fL (6.9-10.8) Neutrophils (%) (Auto) 58.8 % (37.0-80.0) Lymphocytes (%) (Auto) 27.4 % (10.0-50.0) Monocytes (%) (Auto) 11.9 % (0.0-12.0) Eosinophils (%) (Auto) 1.1 % (0.0-7.0) Basophils (%) (Auto) 0.8 % (0.0-2.0) Neutrophils # (Auto) 4.1 10 ^3/uL (1.6-8.6) Lymphocytes # (Auto) 1.9 10 ^3/uL (0.4-5.4) Monocytes # (Auto) 0.8 10 ^3/uL (0-1.3) Eosinophils # (Auto) 0.1 10 ^3/uL (0-0.8) Basophils # (Auto) 0.1 10 ^3/uL (0-0.2) Nucleated Red Blood Cells 0.2 % Prothrombin Time 11.9 sec (9.3-11.8) Prothrombin Time INR 1.14 (0.9-1.15) Activated Partial Thromboplast Time 28.8 SEC (24.5-34.5) HIV (1&2) Antibody Negative (Negative) Blood Gas Specimen Type Venous Blood Gas Sample Site Vbg - n/a Blood Gas Patient Temperature 37.0 Arterial Blood Date Drawn [id number] [place] Test N/a Venous Blood pH 7.445 (7.320-7.430) Venous Blood pCO2 at Patient Temp 32.7 mmHg (38.0-54.0) Venous Blood pO2 at Patient Temp 38.8 mmHg (23.0-48.0) Venous Blood HCO3 22.0 mmol/L (22.0-29.0) Venous Blood Base Excess -1.2 mmol/L (-2.0-3.0) Blood Gas Modality Room air FiO2 % 21.0 Test 12/25/24 04:47 12/24/24 07:38 12/14/24 11:19 12/13/24 11:19 Ammonia 23 umol/L (11-32) Thyroid Stimulating Hormone (TSH) 2.41 uIU/mL (0.55-4.78) Treponema pallidum Antibody Non-reactive (Negative) Erythrocyte Sedimentation Rate 8 mm/hr (0-20) Immunoglobulin A 98 mg/dL (64-422) Atypical p-ANCA <1:20 titer (Neg:<1:20) Endomysial IgA Antibody Negative (Negative) Tissue Transglutaminase IgA Ab <2 U/mL (0-3) Saccharomyces cerevisiae IgG Ab <20.0 Units (0.0-24.9) Saccharomyces cerevisiae IgA Ab <20.0 Units (0.0-24.9) Stool for White Cells None seen Urine Color Light-orange (Yellow) Urine Clarity Ex.turbid (Clear) Urine pH 6.0 (5.0-9.0) Urine Specific [place] 1.014 (1.001-1.035) Urine Protein 1+ (Negative) Urine Ketones 1+ (Negative) Urine Blood 2+ /uL (Negative) Urine Nitrite Negative (Negative) Urine Bilirubin Negative (Negative) Urine Urobilinogen Normal mg/dL (Negative) Urine Leukocyte Esterase 3+ /uL (Negative) Urine RBC 58 /hpf (0 - 4) Urine WBC Clumps Present /hpf (None Seen) Urine Microscopic WBC 1231 /HPF (0-5) Urine Squamous Epithelial Cells Few /hpf (<5) Urine Bacteria None seen /hpf (None Seen) Urine Mucus Few (None Seen) Urine Glucose Normal mg/dL (Normal) Other Laboratory Tests 12/27/24 05:00 12/26/24 04:52 Brief Hx & Hospital Course: 74-year-old female with a past medical history of type 2 diabetes mellitus, hysterectomy, and lumbar laminectomy presents with persistent nausea, vomiting, and diarrhea for more than two weeks. She was recently admitted to a hospital in [place] about one week ago, where stool studies reportedly showed norovirus. She was discharged on amoxicillin and completed four days of treatment but continues to have diarrhea with foul odor, no blood, and no abdominal pain. She reports decreased appetite and describes that whenever she tries to eat, she experiences immediate diarrhea, a sensation of something stuck in her throat, and vomiting. She denies chest pain or shortness of breath. In the ED, she was hemodynamically stable. CBC was unremarkable, BMP notable for potassium 2.9 and glucose 143. UA showed presence of bacteria. Given ongoing symptoms, hypokalemia, and poor oral intake, she will be admitted for dehydration management, intractable nausea/vomiting/diarrhea, and further evaluation. 12/24: Taking case up after Dr. Muhammad. Patient is family members or complaining of acute mental status change, patient is awake alert but inappropriately laughing. Neurology has been consulted. She is being treated for UTI, continues to have diarrhea since she returned from vacation. Neurology is consulted, we will increase ceftriaxone to meningitis dose, neurology is consulted need LP HSV versus RPR. We will follow and may need to repeat CT head as well and/or MRI defer to Neurology. GI has done EGD finding gastritis and hiatal hernia. Dressed for RPR treponemal, ammonia, ABG, continue test CBC CMP. Continuing to follow up daily exam is neuro checks. Neurology eval pending. May need repeat CT head. We will add 2 g ceftriaxone to linezolid and doxycycline. We will likely need LP. 12/25: Patient remains confused. No inappropriate laughter today. Neurology consult was entered and inappropriately, and has been face and neurology is supposed to see patient today. Continuing treatment for UTI and gastroenteritis. Ceftriaxone 2 g, and linezolid UTI. Adding doxycycline for coverage of atypical organisms. Pending CSF, likely tomorrow. Note no MRI done only CT. Head CT was negative. Symptoms are not typical of MS, defer to Neurology whether patient needs MRI with or without contrast. Ammonia and treponemal test are negative. VBG is unconcerning for hypercarbia. 12/26: Patient remains confused, although no further worsening. Patient is more sleepy today. Tested for HIV today waiting for results. Neurology has seen as ordered MRI without contrast, continuing IV antibiotics. Pending LP but need neurology agreement,. We will continue monitoring. 12/27: Patient family want to patient transfer but no indication for higher level care, patient's family want to take patient to higher level hospital in leave against medical advice. Family accepting all risks including and are preparing private transfer themselves. Diagnosis: Acute toxic metabolic encephalopathy Sepsis due to below Acute complicated UTI, due to E coli and Enterococcus faecalis Acute abdominal pain Intractable nausea Intractable diarrhea Gastroenteritis, possible, infectious etiology likely, Status post endoscopy Moderate gastritis Sliding-type hiatal hernia Grade B esophagitis Diverticulosis without diverticulitis Type 2 diabetes Hypokalemia, Acute intravascular volume depletion MRSA nares History of lumbar surgery Condition at Discharge: Undetermined Final Diagnosis/Problems List Acute toxic metabolic encephalopathy Sepsis due to below Acute complicated UTI, due to E coli and Enterococcus faecalis Acute abdominal pain Intractable nausea Intractable diarrhea Gastroenteritis, possible, infectious etiology likely, Status post endoscopy Moderate gastritis Sliding-type hiatal hernia Grade B esophagitis Diverticulosis without diverticulitis Type 2 diabetes Hypokalemia, Acute intravascular volume depletion MRSA nares History of lumbar surgery Discharge Disposition: AMA Discharge Instruct/Medications Scheduled Amoxicillin & Pot Clavulanate (Augmentin Tablet), 875 MG PO BID, (Reported) Benazepril Hcl (Benazepril Hcl), 1 TAB PO DAILY, (Reported) Metformin Hydrochloride (Metformin Hcl Er), 1 TAB PO DAILY, (Reported) Rosuvastatin Calcium (Crestor), 1 TAB PO DAILY, (Reported) Sertraline Hcl (Sertraline Hcl), 1 TAB PO DAILY, (Reported) Miscellaneous Medications Estradiol (Estradiol), 1 MG PO, (Reported) Ondansetron Odt 4MG Tab (Zofran Po), 4 MG PO, (Reported) Discharge Statement: "Patient was advised to return to the ER or call 911 if any headaches, dizziness, shortness of breath, chest pain, abdominal pain, bleeding, fevers, or worsening of medical condition. Patient was counseled about treatment plan, medications, possible side effects, patientverbalized understanding. All questions were answered to the best of my ability. This discharge took greater then 30 minutes in planning, reviewing documentation, counseling the patient, and discussing with other team members." ASSESSMENT ASSESSMENT Assessment Date of Service: Dec 27, 2024 Billing Provider: CHAVA SYLVESTER MD Common Visit Codes: NOT BILLABLE CHAVA SYLVESTER MD Dec 27, 2024 16:19
[2024-12-27] MEDS ORDERED: METOCLOPRAMIDE HCL 5MG/ml INJ 2ml VIAL IV SCH (18:00)
--- NOTE | 2024-12-30 14:29 | DVHEEG2 ---
Neurology EEG Procedural Note Procedural Note EXAM DATE: 12/26/2024 REFERRING DOCTOR: Dr. Orona TECHNIQUE: Eighteen channels of EEG, 2 channels of EOG, and 1 channel of EKG were recorded using the [employer] 10/20 system. CLINICAL DATA: The patient was referred for an EEG evaluation for the evidence of seizure disorder. MEDICATIONS: See the chart BACKGROUND ACTIVITY: While the patient was awake, the background activity consisted of fairly regulated 7 Hz rhythmic waveforms, symmetrically distributed over both posterior quadrants and was reactive to external stimuli ACTIVATION: Hyperventilation: Not done Photic Stimulation: Not done Sleep: Not seen IMPRESSION: This is a mildly abnormal EEG, this EEG is seen in mild cerebral dysfunction due to metabolic/hypoxic encephalopathy or medication effects, please correlate clinically. The EKG channel showed a regular heart rate of 90 per minute[place] [address] LYDIA ORONA MD Dec 30, 2024 14:29
== END 2024-12-27 11:06 | disposition left against medical advice (07) | DRG 871 ==
LOC: EDBD 10:22 → ER 10:22 → OVERFLOW 15:32 → CENTRAL 17:32 → WEST WING 12-23 20:53
PROVIDERS: ADMIT Student in an Organized Health Care Education/Training Program; ATTEND Student in an Organized Health Care Education/Training Program
PROC: 05HD33Z Insertion of Infusion Device into Right Cephalic Vein, Percutaneous Approach (ICD-10-PCS; 2024-12-16)
PROC: B54MZZA Ultrasonography of Right Upper Extremity Veins, Guidance (ICD-10-PCS; 2024-12-16)
PROC: 0DB68ZX Excision of Stomach, Via Natural or Artificial Opening Endoscopic, Diagnostic (ICD-10-PCS; 2024-12-17)
PROC: 0DB48ZX Excision of Esophagogastric Junction, Via Natural or Artificial Opening Endoscopic, Diagnostic (ICD-10-PCS; 2024-12-17)
PROC: 0DB98ZX Excision of Duodenum, Via Natural or Artificial Opening Endoscopic, Diagnostic (ICD-10-PCS; principal; 2024-12-17 15:21)
PROC: 05HF33Z Insertion of Infusion Device into Left Cephalic Vein, Percutaneous Approach (ICD-10-PCS; 2024-12-24)
PROC: B54NZZA Ultrasonography of Left Upper Extremity Veins, Guidance (ICD-10-PCS; 2024-12-24)
PROC: 02HV33Z Insertion of Infusion Device into Superior Vena Cava, Percutaneous Approach (ICD-10-PCS; 2024-12-26)
PROC: B548ZZA Ultrasonography of Superior Vena Cava, Guidance (ICD-10-PCS; 2024-12-26)
DX: A41.51 Sepsis due to Escherichia coli [E. coli] (principal); G92.8 Other toxic encephalopathy; K22.10 Ulcer of esophagus without bleeding; N39.0 Urinary tract infection, site not specified; A09 Infectious gastroenteritis and colitis, unspecified; F05 Delirium due to known physiological condition; E86.0 Dehydration; E87.6 Hypokalemia; E11.9 Type 2 diabetes mellitus without complications; A08.4 Viral intestinal infection, unspecified; B95.2 Enterococcus as the cause of diseases classified elsewhere; K76.0 Fatty (change of) liver, not elsewhere classified; K29.70 Gastritis, unspecified, without bleeding; K44.9 Diaphragmatic hernia without obstruction or gangrene; K57.30 Diverticulosis of large intestine without perforation or abscess without bleeding; Z53.29 Procedure and treatment not carried out because of patient's decision for other reasons; K21.9 Gastro-esophageal reflux disease without esophagitis; F41.9 Anxiety disorder, unspecified; F32.A Depression, unspecified; I10 Essential (primary) hypertension; G47.00 Insomnia, unspecified; Z90.710 Acquired absence of both cervix and uterus; Z82.49 Family history of ischemic heart disease and other diseases of the circulatory system; Z82.5 Family history of asthma and other chronic lower respiratory diseases; Z79.899 Other long term (current) drug therapy; Z22.322 Carrier or suspected carrier of Methicillin resistant Staphylococcus aureus
CPT/HCPCS: 36415; 36569; 36600; 70450; 71045; 71250; 74176; 74177; 76937; 80048; 80053; 81001; 82140; 82784; 82805; 82962; 83516; 83735; 84100; 84443; 84478; 85025; 85048; 85610; 85652; 85730; 86255; 86256; 86671; 86703; 86780; 86850; 86900; 86901; 87040; 87045; 87081; 87086; 87088; 87186; 87427; 87493; 93306; 95819; 96365; 96375; 97110; 97116; 97162; G0378; J1815; J2003; J2250; J2405; J2470; J3480; J3490